=== PATIENT | female | born 1930 | race Caucasian/White ===

== ENCOUNTER 2018-03-09 15:47 | Inpatient (IN) | payer MEDICARE, OTHER ==
--- NOTE | 2017-03-14 22:30 | NUR ---
PT MOVED FROM RM #195 TO RM # [id number], PT CONFUSED, AND DISORIENTED HOWEVER, ATTEMPTS TO CLIMB THROUGH THE SIDE RAILS AND SIT ON THE EDGE. PT IS VERY CONFUSED, BED ALARM ON.
[~2018-03-09] VITALS: Ht 160 cm; Wt 57.4 kg
[~2018-03-09 15:47] MED LIST: ADVAIR 250-501 EACH; ATENOLOL-CHLOR1 EAC1 PEG; ATENOLOL50 MG PO; BALANCED B-501 EAC1 PO; BUDESONIDE EC3 MG PO; COENZYME Q10400 MG PO; COUMADIN4 MG PO; CYANOCOBAL1000 MCG/M IM; DEXAMETHASONE4 MG; ENTOCORT EC3 MG; FLOVENT DISKUS50 MCG; FUROSEMIDE40 MG PO; HYDROCHLOROTHIA25 MG PO; K DUR10 MEQ PO; LECITHIN518 MG PO; LEVOFLOXACIN250 MG; LEVSIN0.125 MG SL; MAGNESIUM400 MG PO; MINOCYCLINE HC100 MG PO; NEXIUM40 MG PO; NIFEDIAC CC90 MG PO; PRINIVIL10 MG PO; TRILIPIX135 MG PO; XYZAL5 MG; [UNRECOGNIZED DRUG - OTHER] PO
[2018-03-09] MEDS: PROPOFOL IV EMULSION 10MG/ML 100 ML IV PRN ×2 (15:58→20:48)
[2018-03-09] MEDS ORDERED: PROPOFOL IV EMULSION 10MG/ML 100 ML ONE (16:01)
[2018-03-09] MEDS ORDERED: SUCCINYLCHOLINE 200 MG/10 ML SYR IV ONE (16:06)
[2018-03-09] MEDS ORDERED: ETOMIDATE 2 MG/ML 10 ML INJ IV ONE ×2 (16:06→18:03)
[2018-03-09] MEDS ORDERED: PROPOFOL IV EMULSION 10 MG/ML 50 ML VIAL IV PRN ×2 (16:15→19:45)
--- NOTE | 2018-03-09 16:57 | NUR ---
Initial urine output recorded via I&O intervention.
[2018-03-09 17:13] LABS: BASOPHILS % 0.2 % (0.0-1.0); EOSINOPHILS % 0.4 % (0.0-6.0); HEMATOCRIT 29.6 % (34.2-44.1); HEMOGLOBIN 9.3 g/dL (12.0-16.0); LYMPHOCYTES # (AUTO) 0.8 (1.0-3.2); MEAN CORPUSCULAR HEMOGLOBIN 31.1 pg (28-32); MEAN CORPUSCULAR HGB CONC 31.4 g/dL (31-35); MONOCYTES # (AUTO) 0.8 (0.2-0.8); MONOCYTES % 7.5 % (4.4-11.3); NEUTROPHILS # (AUTO) 8.7 (2.1-6.9); NEUTROPHILS % 83.1 % (38.7-80.0); PLATELET COUNT 339 x10e3/uL (140-360); RED BLOOD COUNT 2.99 x10e6/uL (3.6-5.1)
[2018-03-09 17:23] LABS: INR 1.11; PROTHROMBIN TIME 15.3 seconds (11.9-14.5)
[2018-03-09 17:24] LABS: PARTIAL THROMBOPLASTIN TIME 35.6 seconds (23.8-35.5)
[2018-03-09 17:30] LABS: CLARITY,URINE CLEAR (CLEAR); COLOR,URINE YELLOW (YELLOW); LEUKOCYTE ESTERASE ,URINE NEGATIVE (NEGATIVE); NITRITE,URINE NEGATIVE (NEGATIVE)
[2018-03-09 17:31] LABS: BILIRUBIN,URINE NEGATIVE (NEGATIVE); KETONES,URINE NEGATIVE (NEGATIVE); PROTEIN,URINE DIPSTICK 2+ (NEGATIVE); URINE UROBILINOGEN 0.2 mg/dL (0.2 - 1)
[2018-03-09 17:32] LABS: ABG HCO3 23 mmol/L (23-28); ABG PCO2 43 mmHg (41-51); ABG PH 7.33 (7.31-7.41); ABG PO2 175 mmHg (80-105)
[2018-03-09 17:33] LABS: ALBUMIN 2.2 g/dL (3.5-5.0); ALBUMIN/GLOBULIN RATIO 0.6 (0.8-2.0); ANION GAP 13.6 mmol/L (8-16); CALCIUM 7.9 mg/dL (8.4-10.2); CREATININE, SERUM 0.94 mg/dL (0.57-1.11); POTASSIUM 3.6 mmol/L (3.5-5.1)
--- NOTE | 2018-03-09 17:35 | NUR ---
173 Radiology called about chest x-ray
[2018-03-09 17:39] LABS: CREATINE KINASE MB 2.4 ng/mL (0-5.0)
[2018-03-09 17:45] LABS: EPITHELIAL CELLS,URINE MANY /LPF; TRANSITIONAL EPI CELLS,URINE MANY
[2018-03-09 17:47] LABS: B-TYPE NATRIURETIC PEPTIDE2 2596.5 pg/mL (0-100)
[2018-03-09 17:49] LABS: AMORPHOUS SEDIMENT,URINE MODERATE (FEW)
[2018-03-09] MEDS ORDERED: SUCCINYLCHOLINE CHLORIDE 20 MG/ML 10ML VIAL ONE (18:03)
--- NOTE | 2018-03-09 18:24 | Diagnostic Imaging Report ---
EXAMINATION: CHEST SINGLE (PORTABLE) INDICATION: ^RESP FAILURE ^Y COMPARISON: None available. FINDINGS: AP view TUBES and LINES: Endotracheal tube in place with tip approximately 2.3 cm above sukhjinder. Nasogastric tube in place, extending beyond the inferior margin of the film. The side-port is at gastroesophageal junction. Recommend advancement. Dual-lead left chest wall cardiac device in place with distal tips overlying right atrium and right ventricle. LUNGS: Lungs are well inflated. Pulmonary vascular congestion and moderate interstitial edema. PLEURA: No pneumothorax. Small left and trace right pleural effusions. HEART AND MEDIASTINUM: The cardiomediastinal silhouette is enlarged. BONES AND SOFT TISSUES: No acute osseous lesion. Soft tissues are unremarkable. UPPER ABDOMEN: No free air under the diaphragm. IMPRESSION: Enlarged cardiomediastinal silhouette, pulmonary vascular congestion, and moderate interstitial edema. Underlying infiltrate cannot be excluded. Small left and trace right pleural effusions. Recommend advancement of enteric tube. Signed by: Dr. Rickie Carlos MD on 03/09/2018 6:20 PM
[2018-03-09] MEDS ORDERED: FUROSEMIDE INJ 10 MG/ML 4 ML VIAL IV ONE (19:00)
--- NOTE | 2018-03-09 19:50 | NUR ---
RECEIVED REPORT FROM [facility]EL[facility] DAY SHIFT NURSE.
--- OUTSIDE RECORDS SUMMARY | 2018-03-09 21:31 | XMS REPORT ---
Author Author [facility] Address Unknown Phone Unavailable Care Team Providers Care Mixing Place Supervisor Name Role Phone Shannan ESTRADA Unavailable Unavailable Problems This patient has no known problems. Allergies, Adverse Reactions, Alerts This patient has no known allergies or adverse reactions. Medications This patient has no known medications. Results Test Description Test Time Test Comments Text Results Atomic Results Result Comments CHEST SINGLE (PORTABLE) 2018-03-09 18:18:00 [place] [address] Patient Name: BOOM MOTA MR #: [id number] : 1930 Age/Sex: 87/F Req #: [id number] Adm Physician: Ordered by: NAYELI ESTRADA MD Report #: [id number] Location: ER Room/Bed: Procedure: [id number] DX/CHEST SINGLE (PORTABLE) Exam Date: 03/09/18 Exam Time: 1747 REPORT STATUS: Signed EXAMINATION: CHEST SINGLE (PORTABLE) INDIC ATION: RESP FAILURE Y COMPARISON: None available. FINDINGS: AP view TUBES and LINES: Endotracheal tube in place with tip approximately 2.3 cm above sukhjinder. Nasogastric tube in place, extending beyond the inferior margin of the film. The side-port is at gastroesophageal junction. Recommend advancement. Dual-lead left chest wall cardiac device in place with distal tips overlying right atrium and right ventricle. LUNGS: Lungs are well inflated. Pulmonary vascular congestion and moderate interstitial edema. PLEURA: No pneumothorax. Small left and trace right pleural effusions. HEART AND MEDIASTINUM: The cardiomediastinal silhouette is enlarged. BONES AND SOFT TISSUES: No acute osseous lesion. Soft tissues are unremarkable. UPPER ABDOMEN: No free air under the diaphragm. IMPRESSION: Enlarged cardiomediastinal silhouette, pulmonary vascular congestion, and moderate interstitial edema. Underlying infiltrate cannot be excluded. Small left and trace right pleural effusions. Recommend advancement of enteric tube. Signed by: Dr. Rickie Carlos MD on 03/09/2018 6:20 PM Dictated By: RICKIE CARLOS MD 19 Transcribed By: RANCHO on 03/09/181819 COPY TO: NAYELI ESTRADA MD
[2018-03-09 23:00] VITALS: BP_SYST 121; BP_SYST 122; BP_SYST 125; BP_DIAS 55
[2018-03-09 23:59] VITALS: BP 124/52
[2018-03-10] VITALS (56 sets, daily range): BP systolic 121–174; BP diastolic 49–76
[2018-03-10] MEDS: PROPOFOL IV EMULSION 10MG/ML 100 ML IV PRN ×5 (00:49→22:32)
[2018-03-10 04:44] LABS: BASOPHILS % 0.1 % (0.0-1.0); EOSINOPHILS # (AUTO) 0.1 (0.0-0.4); EOSINOPHILS % 0.7 % (0.0-6.0); HEMATOCRIT 24.1 % (34.2-44.1); HEMOGLOBIN 8.2 g/dL (12.0-16.0); LYMPHOCYTES # (AUTO) 0.7 (1.0-3.2); MEAN CORPUSCULAR HEMOGLOBIN 32.5 pg (28-32); MEAN CORPUSCULAR VOLUME 95.6 fL (81-99); MONOCYTES # (AUTO) 0.6 (0.2-0.8); MONOCYTES % 6.3 % (4.4-11.3); NEUTROPHILS # (AUTO) 8.5 (2.1-6.9); NEUTROPHILS % 85.1 % (38.7-80.0); PLATELET COUNT 269 x10e3/uL (140-360); RED BLOOD COUNT 2.52 x10e6/uL (3.6-5.1); RED CELL DISTRIBUTION WIDTH 16.7 % (11.7-14.4)
[2018-03-10 05:11] LABS: ANION GAP 11.3 mmol/L (8-16); BLOOD UREA NITROGEN 20 mg/dL (7-26); BUN/CREATININE RATIO 24 (6-25); CALCIUM 7.8 mg/dL (8.4-10.2); CARBON DIOXIDE 24 mmol/L (22-29); CHLORIDE 111 mmol/L (98-107); CREATININE, SERUM 0.84 mg/dL (0.57-1.11); EST GLOMERULAR FILTRATION RATE > 60 ML/MIN (60-); GLUCOSE 78 mg/dL (74-118); POTASSIUM 3.3 mmol/L (3.5-5.1); SODIUM 143 mmol/L (136-145)
[2018-03-10 05:12] LABS: CREATINE KINASE MB 3.1 ng/mL (0-5.0)
--- NOTE | 2018-03-10 06:53 | Diagnostic Imaging Report ---
EXAMINATION: CHEST SINGLE (PORTABLE) INDICATION: CHF. COMPARISON: 03/09/2018 FINDINGS: AP view TUBES and LINES: Left chest wall cardiac pacer, stable. Enteric tube sidehole projects over the gastric body, tip extends out of the field of view. Endotracheal tube tip projects slightly above the sukhjinder. LUNGS: Lungs are well inflated. Decreased edema. PLEURA: Small bilateral pleural effusions. HEART AND MEDIASTINUM: Stable. BONES AND SOFT TISSUES: Stable. UPPER ABDOMEN: No free air under the diaphragm. IMPRESSION: Decreased edema. Stable small pleural effusions. Endotracheal tube tip slightly above the sukhjinder. Consider retracting. Signed by: DR. Abel Velasquez MD on 03/10/2018 6:50 AM
--- NOTE | 2018-03-10 07:00 | NUR ---
Consult called to Dr Stanford. Spoke to Sandi
--- NOTE | 2018-03-10 07:04 | NUR ---
Consult called to Dr Aguero's office (Dr Forrest Covering). A message was left.
[2018-03-10] MEDS: FUROSEMIDE INJ 10 MG/ML 4 ML VIAL IV SCH ×2 (09:08→16:04)
[2018-03-10] MEDS ORDERED: POTASSIUM CHLORIDE 20MEQ/15ML UDC NG ONE (11:30)
[2018-03-10] MEDS: ATENOLOL 50 MG TAB PO SCH (11:56)
[2018-03-10 12:29] LABS: CREATINE KINASE MB 2.2 ng/mL (0-5.0)
--- NOTE | 2018-03-10 13:31 | Consultation ---
DATE OF CONSULTATION: March 10, 2018 PULMONARY/CRITICAL CARE CONSULTATION REASON FOR THE CONSULT: ICU management and respiratory failure. HPI: Ms. Roman is an 87-year-old female. She presented to the emergency room with worsening shortness of breath. According to the son, patient lives by herself, and 2 days ago, she was in her usual state of health. She usually has limited mobility and she uses wheelchair at home as well. She is a heavy smoker for almost 65 to 70 plus years. She lives by herself. She called the Life Alert, and she was transferred here. In the emergency room, she was in severe respiratory distress, was unable to give any history. She was intubated in the emergency room because of respiratory failure. Her room air sats by EMS reported was 75%. She was put on CPAP and then intubated in the emergency room. She is currently sedated. She is on propofol. REVIEW OF SYSTEMS: Unable to elicit any because patient is sedated. PAST MEDICAL HISTORY: Hypertension, pacemaker status, hyperlipidemia, possible COPD as patient has a longstanding history of smoking, had history of B12 deficiency in the past as well. FAMILY AND SOCIAL HISTORY: She has been a smoker for 65 to 70 plus years and heavy smoking. The son does not know exact number of cigarettes a day. She lives by herself. She has limited mobility. She uses wheelchair as well. PHYSICAL EXAMINATION VITAL SIGNS: Temperature 98.6, pulse of 60, blood pressure 150/58, respiratory rate of 18 to 20. She is on mechanical ventilator with FIO2 of 45% which was weaned this morning. HEENT: Head, atraumatic and normocephalic. NECK: Supple. She is intubated. CHEST: Clear to auscultation bilaterally. No wheezing. No crackles. HEART: S1, S2 audible. ABDOMEN: Soft, nontender, nondistended. EXTREMITIES: Bilateral pedal edema and chronic skin changes. NEUROLOGICAL: She is sedated and intubated. LABS: White count of 9.98, hemoglobin 8.2, platelets 269. Chemistry, sodium 143, potassium 3.3, chloride 111, BUN 20, creatinine 0.84. BNP was 2596.5 when she came in. Troponin 0.317 and went up to 0.451. Her influenza was negative. Chest x-ray, I have reviewed the images. It is showing evidence of bilateral increased hilar congestion and pulmonary edema which is a little better after intubation. ASSESSMENT/PLAN: Ms. Roman is an 87-year-old female, smoker, history of diastolic heart failure, last echo in 2014, does not have any recent echo, bilateral pedal edema, some skin changes in the lower extremities, heavy smoker, came in with worsening shortness of breath. Chest x-ray suggestive of increased hilar congestion and pulmonary edema. She has a pacemaker. IMPRESSION 1. Acute hypoxic respiratory failure. 2. Acute pulmonary edema. 3. Possibility of pneumonia, however unlikely. 4. High likelihood of having chronic obstructive pulmonary disease, not wheezing at this point. 5. Permanent pacemaker status. PLAN 1. Ventilator setting reviewed. We will continue the patient on current vent setting. ABG reviewed. The FiO2 is weaned to 45% which will be continued. 2. Patient is on propofol for sedation. Blood pressure has been stable. We will continue the patient on propofol. 3. Agree with Lasix 40 mg IV b.i.d. 4. I will add antibiotic for possibility of pneumonia. 5. Nebulizer treatment as ordered. 6. Lovenox subcutaneous for DVT prophylaxis. 7. Pepcid for GI prophylaxis. 8. Cardiology consult. 9. I had a detailed discussion with her son at bedside about the end-of-life care and patient's wishes. They are not sure but possibly has an advanced directive with DNR. However, at this point, the patient is full code here in the electronic medical records. However, I have asked them to bring the living will if they have it at home. Critical care time spent, 50 minutes. Job#: [id number] HIMA
[2018-03-10] MEDS: AZITHROMYCIN 250MG/NS 100 ML 100 ML IV SCH (13:51)
[2018-03-10] MEDS: AZTREONAM 1 GM/NS 50 ML 50 ML IV SCH (14:38)
[2018-03-10] MEDS: ALBUTEROL/IPRATROPIUM 3 ML NEB NEB SCH ×3 (15:00→23:30)
[2018-03-10] MEDS: ENOXAPARIN SOD INJ 40 MG/0.4 ML SYR SC SCH (16:04)
--- NOTE | 2018-03-10 17:27 | Consultation ---
DATE OF CONSULTATION: March 10, 2018 CARDIOLOGY CONSULTATION REASON FOR CONSULTATION: Heart failure. HISTORY OF PRESENT ILLNESS: This is an 87-year-old woman who presented to the emergency department with worsening shortness of breath. On EMS arrival, she was 75% on room air, was placed on noninvasive positive pressure ventilation and then subsequently intubated here at our facility. Medical history is taken at the step-daughter bedside as the patient is currently intubated and sedated. Evidently, she had been in her usual state of health and denied any chest pain or shortness of breath. Evidently, the patient ate some Hebrew food over the holiday weekend and became suddenly short of breath and press her Life Alert. Chest x-ray here showed pulmonary vascular congestion. She was started on intravenous diuretics. REVIEW OF SYSTEMS: Unable to be obtained. PAST MEDICAL HISTORY: Chronic diastolic heart failure, pacemaker implantation, tobacco use, hypertension, hyperlipidemia, COPD. PAST FAMILY HISTORY: No premature coronary artery disease or sudden cardiac . SOCIAL HISTORY: Tobacco use. PAST SURGICAL HISTORY: Permanent pacemaker implantation. ALLERGIES: PENICILLIN, SULFA, CLINDAMYCIN, CODEINE, DOXYCYCLINE, IODINE. MEDICATIONS: See medication reconciliation form. PHYSICAL EXAMINATION VITAL SIGNS: Temperature is 98.6, heart rate is 66, respirations are 16, blood pressure is 147/49, and oxygen saturation 100% on mechanical ventilation at 45% FiO2. GENERAL: Elderly woman, intubate and sedated. CARDIOVASCULAR: Regular rate and rhythm. LUNGS: Scatted wheezes with bilateral base diminished breath sounds. ABDOMEN: Soft, nondistended. EXTREMITIES: Positive for edema. SKIN: Right lower extremity wound. MEDICATION: Reviewed. LABORATORY DATA: Reviewed. Hemoglobin 8.2. Potassium 3.3, creatinine 0.84. Troponin is 0.317, 0.451, 0.37. BMP is 2596. A 12-lead electrocardiogram showed ventricular paced rhythm. IMPRESSION 1. Kphyr-ga-mbjcfpo diastolic heart failure. 2. Respiratory failure with hypoxemia. 3. Chronic obstructive pulmonary disease with exacerbation. 4. Presence of a permanent pacemaker. RECOMMENDATIONS: Continue intravenous diuretics. Replace electrolytes to keep potassium greater than 4, magnesium greater than 2. Continue to monitor closely on telemetry. We will have the pacemaker interrogated. We will repeat 2D echocardiogram. All other treatment per primary and pulmonary critical care team. Job#: [id number] PRASHANT
[2018-03-11] VITALS (51 sets, daily range): BP systolic 141–192; BP diastolic 49–89
[2018-03-11] MEDS: AZTREONAM 1 GM/NS 50 ML 50 ML IV SCH ×2 (00:30→12:40)
[2018-03-11] MEDS: ALBUTEROL/IPRATROPIUM 3 ML NEB NEB SCH ×6 (03:00→22:32)
[2018-03-11] MEDS: PROPOFOL IV EMULSION 10MG/ML 100 ML IV PRN ×2 (04:15→23:31)
[2018-03-11 04:49] LABS: BASOPHILS # (AUTO) 0.1 (0.0-0.1); BASOPHILS % 0.5 % (0.0-1.0); EOSINOPHILS # (AUTO) 0.1 (0.0-0.4); EOSINOPHILS % 0.6 % (0.0-6.0); HEMATOCRIT 27.6 % (34.2-44.1); HEMOGLOBIN 8.8 g/dL (12.0-16.0); LYMPHOCYTES # (AUTO) 1.1 (1.0-3.2); LYMPHOCYTES % 11.2 % (18.0-39.1); MEAN CORPUSCULAR HEMOGLOBIN 30.6 pg (28-32); MEAN CORPUSCULAR HGB CONC 31.9 g/dL (31-35); MEAN CORPUSCULAR VOLUME 95.8 fL (81-99); MONOCYTES % 9.8 % (4.4-11.3); NEUTROPHILS # (AUTO) 7.6 (2.1-6.9); NEUTROPHILS % 77.3 % (38.7-80.0); PLATELET COUNT 278 x10e3/uL (140-360); RED BLOOD COUNT 2.88 x10e6/uL (3.6-5.1); RED CELL DISTRIBUTION WIDTH 16.9 % (11.7-14.4)
[2018-03-11 05:22] LABS: ALBUMIN 1.9 g/dL (3.5-5.0); ALBUMIN/GLOBULIN RATIO 0.6 (0.8-2.0); ANION GAP 14.4 mmol/L (8-16); CREATININE, SERUM 1.14 mg/dL (0.57-1.11); POTASSIUM 3.4 mmol/L (3.5-5.1)
[2018-03-11 05:44] LABS: THYROID STIMULATING HORMONE 1.146 uIU/mL (0.350-4.940)
--- NOTE | 2018-03-11 06:36 | Diagnostic Imaging Report ---
EXAMINATION: CHEST SINGLE (PORTABLE) INDICATION: CHF. COMPARISON: 03/10/2017 FINDINGS: AP view TUBES and LINES: Left chest wall cardiac pacer, stable. Enteric tube sidehole and tip project over the gastric body. Endotracheal tube tip projects slightly above the sukhjinder. LUNGS: Lungs are well inflated. Stable edema. PLEURA: Small bilateral pleural effusions. HEART AND MEDIASTINUM: Stable. BONES AND SOFT TISSUES: Stable. UPPER ABDOMEN: No free air under the diaphragm. IMPRESSION: No significant interval change. Stable edema and pleural effusions. Endotracheal tube tip remains slightly above the sukhjinder. Consider retracting. Signed by: DR. Abel Velasquez MD on 03/11/2018 6:33 AM
[2018-03-11] MEDS: POTASSIUM CHLORIDE 20MEQ/15ML UDC NG SCH (08:00)
[2018-03-11] MEDS: FAMOTIDINE 20 MG/2 ML VIAL IV SCH (08:00)
[2018-03-11] MEDS: FUROSEMIDE INJ 10 MG/ML 4 ML VIAL IV SCH ×3 (08:00→23:31)
[2018-03-11] MEDS: ATENOLOL 50 MG TAB PO SCH ×2 (08:08→16:07)
[2018-03-11] MEDS ORDERED: POTASSIUM CHLORIDE 20MEQ/15ML UDC NG NR (09:45)
[2018-03-11] MEDS: LISINOPRIL 10 MG TAB PO SCH (10:01)
[2018-03-11] MEDS: AZITHROMYCIN 250MG/NS 100 ML 100 ML IV SCH (12:31)
--- NOTE | 2018-03-11 13:24 | Progress Note ---
DATE: March 11, 2018 CARDIOLOGY PROGRESS NOTE SUBJECTIVE: No major events overnight. Remains intubated and sedated. OBJECTIVE: VITAL SIGNS: Temperature afebrile, pulse 89, blood pressure 177/72, satting 100% on 40% FiO2. Intubated. GENERAL: Elderly white female, thin, chronically ill-appearing, intubated and sedated. CARDIOVASCULAR: Regular rate and rhythm. No murmurs, rubs or gallops. Palpable carotid pulses, palpable radial pulses, 2+ edema of bilateral lower extremities. LUNGS: Bilateral crackles and mechanical ventilation sounds. ABDOMEN: Soft, nondistended. No masses. NEURO AND PSYCH: Intubated and sedated. INPATIENT MEDICATIONS: Reviewed. LABORATORY DATA: Reviewed. Shows BNP of over 2000 and troponin of 0.45 now down-trending to 0.37. Blood cultures showed no growth in 24 hours. CHEST X-RAY: Shows bilateral pulmonary edema and pleural effusions. TELEMETRY DATA: Reviewed. Shows paced rhythm with occasional what looks like pacemaker tachycardia runs. ASSESSMENT: 1. Yqcez-dx-efwmjsp diastolic heart failure exacerbation. 2. Small pericardial effusion. 3. Pulmonary edema with large pleural effusion. 4. Elevated troponins. PLAN: Interrogate pacemaker. Continue IV diuretics, will increase to 80 mg IV twice a day of furosemide. Replete potassium as needed. Troponin elevation secondary to CHF exacerbation and not consistent with acute coronary syndrome. Will add p.r.n. labetalol IV for blood pressure control. Thank you for this consult. Will continue to follow. Job#: [id number] MELVI
[2018-03-11] MEDS: ENOXAPARIN SOD INJ 40 MG/0.4 ML SYR SC SCH (16:07)
--- NOTE | 2018-03-11 16:31 | NUR ---
Nutrition Intervention Note RD Recommendation(s) for Physician: -If pt remains intubated, rec continuous TF of Vital HP @50mL/hr, providing 1200kcal, 105g protein, and 1003mL H2O. -Rec free H2O flushes of 30mL q 4hr; additional flushes per MD discretion -Monitor daily labs, GI tolerance; replace low lytes -Rec cardiac diet when PO is feasible; diet texture per BUSINESS TECHNOLOGY ANALYST -Rec Ensure Compact BID if PO <50% on regular diet Plan of Care: RD following, monitoring for tolerance and adequacy Nutrition reason for involvement: RN Consult new TF RD Assessment 03/11 Chart reviewed. 87yo F, who is admitted for worsening SOB. Pt remains intubated and on vent. Propofol was stopped. No pressor meds. K was repleted. Currently on IV Lasix. RD consulted for TF recommendation. Visited pt in the room. Vital HP was started at 20mL/hr. No family present on bedside to provide hx. Communicated TF rec with MARK Garvin. Will continue to monitor and follow. Principal Problems/Diagnoses: 1. Usijv-lt-dvrieso diastolic heart failure exacerbation. 2. Small pericardial effusion. 3. Pulmonary edema with large pleural effusion. 4. Elevated troponins. PMH: Chronic diastolic heart failure, pacemaker implantation, tobacco use, hypertension, hyperlipidemia, COPD GI: abdomen non-tender, flatus present 03/11 Skin: no pressure ulcer noted Labs: (03/11) K 3.4L, Creatinine 1.14 H, Glucose 67 L, Ca 8.0 L, vitamin B12 1060 H Meds: abx, lasix, pepcid, KCl Ht: 63in Wt: 130.13lb BMI: 23.1kg/m2 IBW: 115lb Malnutrition Evaluation (03/11) The patient does not meet criteria for a specified degree of malnutrition at this time. Will re-evaluate at follow-up as appropriate. Nutrition Prescription (Diet Order): Tube Feed w Vital HP @40mL/hr Estimated Nutritional Needs: Calories: 1180-1475kcal(20-25kcal/kg/d) Weight used : Actual BW Protein : 77-118g (1.3-2g/kg/d) Weight used: Actual BW Diet Adequacy: Not meeting calorie needs, Not meeting protein needs Diet Education Needs Assessment: Diet education indicated, but patient not appropriate for education at this time. Nutrition Care Level: mod Nutrition Diagnosis: Inadequate oral intake related to current medical status (ventilated and intubated) as evidenced by pt requiring TF as main source of nutrients. Goal: Patient will meet 75-100% of estimated needs by follow up Progress: Progressing Interventions: Composition, Rate, Route Monitoring/Evaluation: Total energy intake, Total protein intake, Formula, Weight change Signed: Wanda Cordova MS, RD, CARMEN
--- NOTE | 2018-03-11 17:17 | NUR ---
WOUND CARE CONSULTATION - Initial Eval and Recommendation Patient is a 87 year-old female admitted for SOB and was intubated and was found to have pulmonary edema. She has a history of cataracts, HTN, Ricardo Knee Replacement 2 years ago, B12 Deficiency, Hyperlipidemia. Head to toe assessment performed. Noted patient already on Alternating ANICETO Air mattress, katz to bedside drainage, NGT with wrist restraints in place. Wrist restraints removed and reapplied, no injuries noted. Edema noted to bilateral legs +2 pitting at dorsum of feet with erythema more pronounced to right lower extremity, hot to touch. Son at bedside states that legs have improved a lot since admission. Diminished pedal pulses noted bilaterally. Capillary refill less than 2 seconds. Patient presented with the following wounds upon evaluation: 1. Right Lower Leg Anterior- Morrison - 4.5x1.5x <0.1- Scabbed- No Drainage - 2. Right Lower Leg Posterior- Calf - 2x1x0.2 - Dry - 100% granulation 3. Left Lower Leg - 2x2x0.1- scabbed, no drainage. 4. Sacrum - Stage I - Pressure Ulcer- 1.5x1.5x0 5. Right Foot 1st Met Head - DTI - 1x1x0 - stable LABS: WBC: 9.86 RBC: 2.88 HGB: 8.8 HCT: 27.6 GLU: 78 ALB: 1.9 RECOMMENDATION: 1. Right Lower Leg Anterior- Morrison - 4.5x1.5x <0.1- Scabbed- No Drainage -Bactroban Ointment BID & Leave Open To Air ( LOTA) 2. Right Lower Leg Posterior- Calf - 2x1x0.2 - Dry - 100% granulation - Bactroban Ointment BID and LOTA 3. Left Medial Lower Leg - 2x2x0.1 - Scabbed- No Drainage -Bactroban Ointment BID and LOTA 4. Sacrum - Stage I - 1.5x1.5x0 - Venelex and Allevyn Sacrum Foam Dressing Daily 5. Right Foot 1st Met Head - 1x1x0 - DTI - Venelex and Allevyn Sacrum Foam Dressing Daily 6. Bilateral Heel Protectors / Prevalon Boots while in bed Daily. Addendum: 03/11/18 at 1732 by Heriberto Ross RN Amended: Links added.
[2018-03-12] VITALS (51 sets, daily range): BP systolic 119–186; BP diastolic 48–90
[2018-03-12] MEDS: AZTREONAM 1 GM/NS 50 ML 50 ML IV SCH ×2 (00:32→12:39)
[2018-03-12] MEDS: ALBUTEROL/IPRATROPIUM 3 ML NEB NEB SCH ×6 (02:32→23:08)
[2018-03-12 04:47] LABS: BASOPHILS % 0.3 % (0.0-1.0); EOSINOPHILS # (AUTO) 0.1 (0.0-0.4); EOSINOPHILS % 0.8 % (0.0-6.0); HEMATOCRIT 27.1 % (34.2-44.1); HEMOGLOBIN 8.8 g/dL (12.0-16.0); LYMPHOCYTES # (AUTO) 0.9 (1.0-3.2); LYMPHOCYTES % 9.2 % (18.0-39.1); MEAN CORPUSCULAR HEMOGLOBIN 30.8 pg (28-32); MEAN CORPUSCULAR HGB CONC 32.5 g/dL (31-35); MEAN CORPUSCULAR VOLUME 94.8 fL (81-99); MONOCYTES % 11.1 % (4.4-11.3); NEUTROPHILS # (AUTO) 7.3 (2.1-6.9); NEUTROPHILS % 78.1 % (38.7-80.0); PLATELET COUNT 274 x10e3/uL (140-360); RED BLOOD COUNT 2.86 x10e6/uL (3.6-5.1); RED CELL DISTRIBUTION WIDTH 16.5 % (11.7-14.4)
[2018-03-12 05:10] LABS: ANION GAP 12.4 mmol/L (8-16); CALCIUM 7.8 mg/dL (8.4-10.2); CREATININE, SERUM 1.12 mg/dL (0.57-1.11); POTASSIUM 3.4 mmol/L (3.5-5.1)
[2018-03-12 05:37] LABS: MAGNESIUM 1.6 MG/DL (1.3-2.1); PHOSPHORUS 4.1 MG/DL (2.3-4.7)
--- NOTE | 2018-03-12 07:55 | Diagnostic Imaging Report ---
EXAMINATION: CHEST SINGLE (PORTABLE) INDICATION: Respiratory failure, pulmonary edema, COPD COMPARISON: Chest radiograph 03/11/2018. FINDINGS: TUBES and LINES: Left chest wall cardiac pacer, stable. Enteric tube terminates in the gastric body. Endotracheal tube tip projects 2.5 cm above the sukhjinder. LUNGS: Lungs are well inflated. Increasing interstitial and perihilar opacities. Patchy opacities are increased at the lung bases. PLEURA: Small bilateral pleural effusions, increased from the prior study. HEART AND MEDIASTINUM: Stable cardiomediastinal silhouette. BONES AND SOFT TISSUES: No acute osseous abnormality. UPPER ABDOMEN: No free air under the diaphragm. IMPRESSION: Increasing moderate interstitial and alveolar pulmonary edema. Increasing patchy opacities at lung bases, likely a combination of small bilateral pleural effusions and atelectasis. Lines and tubes as above. No evidence of pneumothorax. Signed by: Dr. Erich Rodríguez MD on 03/12/2018 7:52 AM
[2018-03-12] MEDS: FUROSEMIDE INJ 10 MG/ML 4 ML VIAL IV SCH ×3 (08:10→22:33)
[2018-03-12] MEDS: MUPIROCIN 2% OINT 22 GM TUBE TOP SCH ×2 (08:10→16:38)
[2018-03-12] MEDS: FAMOTIDINE 20 MG/2 ML VIAL IV SCH (08:10)
[2018-03-12] MEDS: LISINOPRIL 10 MG TAB PO SCH (08:10)
[2018-03-12] MEDS: ATENOLOL 50 MG TAB PO SCH ×2 (08:10→16:40)
[2018-03-12] MEDS: BALSAM PERU/CASTOR OIL 60 GM OINT...G. TP SCH (08:10)
[2018-03-12] MEDS: POTASSIUM CHLORIDE 20MEQ/15ML UDC NG SCH (08:10)
--- NOTE | 2018-03-12 08:11 | NUR ---
tube feed and sedation for ventilator weaning
[2018-03-12] MEDS ORDERED: POTASSIUM CHLORIDE 20MEQ/15ML UDC NG ONE ×3 (10:15→12:00)
[2018-03-12] MEDS ORDERED: MAGNESIUM SULF 1GRAM/DEXTROSE 100 ML IV ONE (10:15)
[2018-03-12] MEDS: AZITHROMYCIN 250MG/NS 100 ML 100 ML IV SCH (13:04)
[2018-03-12 13:55] LABS: ABG HCO3 26 mmol/L (23-28); ABG PCO2 39 mmHg (41-51); ABG PH 7.44 (7.31-7.41); ABG PO2 92 mmHg (80-105)
[2018-03-12] MEDS: ENOXAPARIN SOD INJ 40 MG/0.4 ML SYR SC SCH (16:40)
--- NOTE | 2018-03-12 21:50 | Progress Note ---
DATE: March 12, 2018 CARDIOLOGY PROGRESS NOTE SUBJECTIVE: No major events overnight. Intubated and sedated. OBJECTIVE: VITAL SIGNS: Temperature afebrile, pulse 81, respiratory rate 14, blood pressure 140/62, satting 99% on mechanical ventilation. GENERAL: Elderly female in no acute distress, intubated and sedated. CARDIOVASCULAR: Regular rate and rhythm. No murmurs, rubs, or gallops. LUNGS: Coarse bilaterally. Aeration improved compared to yesterday. ABDOMEN: Soft, nontender, nondistended. NEURO AND PSYCH: Intubated and sedated. INPATIENT MEDICATIONS: Reviewed. LABORATORY DATA: Reviewed. IMAGING DATA: Reviewed. Chest x-ray shows worsening pulmonary edema. TELEMETRY: Shows normal sinus rhythm. ASSESSMENT: 1. Ursdw-rk-uulbpuo diastolic heart failure exacerbation. 2. Small pericardial effusion. 3. Pulmonary edema with pleural effusions. 4. Elevated troponins. PLAN: Pacemaker interrogation completed, shows normal function, no significant arrhythmias. Continue IV diuretics. Diuresing well. Troponin elevation is secondary to CHF exacerbation, not consistent with acute coronary syndrome. Blood pressure is now better controlled. Thank you for this consult. Will continue to follow. Job#: [id number]
[2018-03-13] VITALS (24 sets, daily range): BP systolic 138–187; BP diastolic 47–98
[2018-03-13] MEDS: AZTREONAM 1 GM/NS 50 ML 50 ML IV SCH ×2 (00:45→13:30)
[2018-03-13] MEDS: ALBUTEROL/IPRATROPIUM 3 ML NEB NEB SCH ×6 (03:05→22:55)
[2018-03-13 05:05] LABS: BASOPHILS % 0.4 % (0.0-1.0); EOSINOPHILS # (AUTO) 0.1 (0.0-0.4); HEMATOCRIT 27.2 % (34.2-44.1); HEMOGLOBIN 8.7 g/dL (12.0-16.0); LYMPHOCYTES # (AUTO) 0.9 (1.0-3.2); LYMPHOCYTES % 8.9 % (18.0-39.1); MEAN CORPUSCULAR HEMOGLOBIN 30.7 pg (28-32); MEAN CORPUSCULAR VOLUME 96.1 fL (81-99); MONOCYTES # (AUTO) 1.3 (0.2-0.8); MONOCYTES % 12.7 % (4.4-11.3); NEUTROPHILS # (AUTO) 7.9 (2.1-6.9); NEUTROPHILS % 76.4 % (38.7-80.0); PLATELET COUNT 293 x10e3/uL (140-360); RED BLOOD COUNT 2.83 x10e6/uL (3.6-5.1)
[2018-03-13 05:34] LABS: ANION GAP 11.6 mmol/L (8-16); CALCIUM 8.1 mg/dL (8.4-10.2); CREATININE, SERUM 1.06 mg/dL (0.57-1.11); POTASSIUM 3.6 mmol/L (3.5-5.1)
--- NOTE | 2018-03-13 06:50 | Diagnostic Imaging Report ---
EXAMINATION: CHEST SINGLE (PORTABLE) INDICATION: Pulmonary edema. COMPARISON: Chest radiograph 03/12/2018. FINDINGS: TUBES and LINES: Left chest wall cardiac pacer, stable. Enteric tube terminates in the gastric body. Endotracheal tube tip projects 2.6 cm above the sukhjinder. LUNGS: Lungs are well inflated. Increasing interstitial and perihilar opacities. Patchy opacities are stable at the lung bases. PLEURA: Small bilateral pleural effusions, stable from the prior study. HEART AND MEDIASTINUM: Stable cardiomediastinal silhouette. BONES AND SOFT TISSUES: No acute osseous abnormality. UPPER ABDOMEN: No free air under the diaphragm. IMPRESSION: Stable edema. Stable patchy opacities at lung bases, likely a combination of small bilateral pleural effusions and atelectasis. Lines and tubes as above. Signed by: DR. Abel Velasquez MD on 03/13/2018 6:47 AM
[2018-03-13] MEDS: MUPIROCIN 2% OINT 22 GM TUBE TOP SCH ×2 (09:34→17:13)
[2018-03-13] MEDS: BALSAM PERU/CASTOR OIL 60 GM OINT...G. TP SCH (09:34)
[2018-03-13] MEDS: ATENOLOL 50 MG TAB PO SCH ×2 (09:40→17:00)
[2018-03-13] MEDS: POTASSIUM CHLORIDE 20MEQ/15ML UDC NG SCH (09:40)
[2018-03-13] MEDS: LISINOPRIL 10 MG TAB PO SCH (09:40)
[2018-03-13] MEDS: FAMOTIDINE 20 MG/2 ML VIAL IV SCH (09:40)
[2018-03-13 10:00] LABS: ABG HCO3 29 mmol/L (23-28); ABG PCO2 42 mmHg (41-51); ABG PH 7.44 (7.31-7.41); ABG PO2 124 mmHg (80-105)
[2018-03-13] MEDS: FUROSEMIDE INJ 10 MG/ML 4 ML VIAL IV SCH ×2 (10:23→23:53)
[2018-03-13] MEDS ORDERED: SODIUM CHLORIDE 0.9% 250ML 250 ML ONE (13:49)
[2018-03-13] MEDS: AZITHROMYCIN 250MG/NS 100 ML 100 ML IV SCH (14:07)
--- NOTE | 2018-03-13 15:49 | Progress Note ---
DATE: March 13, 2018 CARDIOLOGY PROGRESS NOTE SUBJECTIVE: No major events overnight. Remains intubated. OBJECTIVE VITAL SIGNS: Temperature afebrile, pulse 88, respiratory rate 15, blood pressure 175/55, satting 98% on mechanical ventilation. GENERAL: Elderly white female, no acute distress. Intubated, not sedated. CARDIOVASCULAR: Regular rate and rhythm. No murmurs, rubs or gallops. Palpable carotid pulses. Palpable radial pulses. LUNGS: Clear to auscultation anteriorly with some patchy rhonchi and rales. ABDOMEN: Soft, nontender, nondistended. NEURO AND PSYCH: The patient is intubated and not responding. Opens her eyes to stimulation. INPATIENT MEDICATIONS: Reviewed. TELEMETRY DATA: Reviewed. Shows ventricularly paced rhythm. LABORATORY DATA: Reviewed. IMAGING DATA: Reviewed. Chest x-ray today shows stable pulmonary edema and small pleural effusions. ASSESSMENTS AND PLANS 1. Qwdob-vb-dzvyjbi diastolic heart failure. 2. Pulmonary edema. 3. Small pericardial effusion. 4. Elevated troponins. 5. Status post pacemaker placement. PLAN: Normal pacemaker function. Continue IV diuretics. Is diuresing well and renal function is holding. Extubation per primary team. Troponin elevation secondary to type 2 IL due to acute CHF exacerbation and not ACS. Will add p.r.n. IV hydralazine for better blood pressure control. Thank you for this consult. Will continue to follow. Job#: [id number] ALEJANDRINA
[2018-03-13] MEDS: HYDRALAZINE HCL 20 MG/ML VIAL IV PRN ×2 (16:36→22:00)
[2018-03-13] MEDS: ENOXAPARIN SOD INJ 40 MG/0.4 ML SYR SC SCH (17:23)
[2018-03-14] VITALS (22 sets, daily range): BP systolic 139–182; BP diastolic 54–111
[2018-03-14] MEDS: AZTREONAM 1 GM/NS 50 ML 50 ML IV SCH ×3 (01:30→23:54)
[2018-03-14] MEDS: HYDRALAZINE HCL 20 MG/ML VIAL IV PRN ×2 (01:50→06:40)
[2018-03-14] MEDS: ALBUTEROL/IPRATROPIUM 3 ML NEB NEB SCH ×6 (03:12→23:00)
[2018-03-14 05:35] LABS: ANION GAP 15.3 mmol/L (8-16); CALCIUM 8.8 mg/dL (8.4-10.2); CREATININE, SERUM 0.98 mg/dL (0.57-1.11); POTASSIUM 3.3 mmol/L (3.5-5.1)
[2018-03-14] MEDS: MUPIROCIN 2% OINT 22 GM TUBE TOP SCH ×2 (07:54→16:46)
[2018-03-14] MEDS: BALSAM PERU/CASTOR OIL 60 GM OINT...G. TP SCH (07:54)
[2018-03-14] MEDS: FAMOTIDINE 20 MG/2 ML VIAL IV SCH (09:14)
[2018-03-14] MEDS: LISINOPRIL 10 MG TAB PO SCH (09:15)
[2018-03-14] MEDS: POTASSIUM CHLORIDE 20MEQ/15ML UDC NG SCH (09:15)
[2018-03-14] MEDS: ATENOLOL 50 MG TAB PO SCH ×2 (09:15→16:46)
[2018-03-14] MEDS: FUROSEMIDE INJ 10 MG/ML 4 ML VIAL IV SCH ×2 (11:00→22:55)
[2018-03-14] MEDS: ACETAMINOPHEN 325 MG TAB PO PRN (12:44)
--- NOTE | 2018-03-14 14:25 | NUR ---
Order received for bedside swallow evaluation. Chart reviewed. Pt will 24 hours s/p extubation and no P.O. diet orders. CXR showing lung base opacities. Will evaluate patient at bedside today.
--- NOTE | 2018-03-14 16:13 | NUR ---
attempted to place NGT for nutrition and medication admin d/t pt failed swallow eval. pt absolutely refused to have to placed. family at bedside trying to talk mother in to getting tube placed. will continue to monitor
[2018-03-14] MEDS: ENOXAPARIN SOD INJ 40 MG/0.4 ML SYR SC SCH (16:46)
--- NOTE | 2018-03-14 18:45 | Progress Note ---
DATE: March 14, 2018 CARDIOLOGY PROGRESS NOTE SUBJECTIVE: Patient denies chest pain or shortness of breath. OBJECTIVE VITAL SIGNS: Temperature 98.5 degrees, pulse 70, respiratory rate 17, blood pressure 153/66, oxygen saturation 99% on 2 liters nasal cannula. GENERAL: Elderly woman, frail, no acute distress. LUNGS: Clear to auscultation bilaterally. No wheezes or crackles. CARDIOVASCULAR: Normal rate. Regular rhythm. No murmur. Normal S1, S2. ABDOMEN: Soft, nontender. EXTREMITIES: 1+ pitting edema. CARDIAC MEDICATIONS 1. Enoxaparin 40 mg subcu daily. 2. Furosemide 80 mg IV q. 12 hours. 3. Lisinopril 10 mg p.o. daily. 4. Atenolol 50 mg p.o. daily. LABS: Sodium 149, potassium 3.3, chloride 109, CO2 of 28, BUN 42, creatinine 0.98. TELEMETRY: V-paced. IMPRESSION 1. Sazaw-pj-bimawze diastolic heart failure. 2. Pulmonary edema. 3. Small pericardial effusion. 4. Elevated troponin. 5. Status post pacemaker placement. RECOMMENDATIONS: Continue current cardiac medications including intravenous diuretics. Patient is net negative with stable creatinine. Troponin elevation secondary to type 2 myocardial infarction in the setting of djpdo-kc-jvglmeq diastolic heart failure and is not consistent with acute coronary syndrome. Patient's blood pressure is elevated. Increase lisinopril. Thank you for this consult. We will continue to follow. Job#: [id number] SHELBIE
--- NOTE | 2018-03-14 19:00 | NUR ---
RECEIVED REPORT FROM SELENA FLORES AT PT'S BEDSIDE, PT CONFUSED, ALERT TO NAME ONLY, FIDGETY IN BED, DIFFICULT FOR PT TO FOLLOW DIRECTIONS SKIN VERY FRAIL AND NUMEROUS BRUISES ALL OVER BODY.
--- NOTE | 2018-03-14 23:00 | NUR ---
PT CONTINUES TO TRY AND GET UP OOB, WITH BED ALARM GOING OFF. PT THROWS HER LEG ACROSS THE RAIL. PT TAKES OFF PULSE OX, NURSE ENCOURAGE THE PT TO LEAVE IT ON TO MONITOR HER OXYGENATION. FREQUENT REMINDERS TO STAY IN BED, BED ALARM ON.
[2018-03-15] VITALS (13 sets, daily range): BP systolic 120–198; BP diastolic 58–92
[2018-03-15] MEDS: HYDRALAZINE HCL 20 MG/ML VIAL IV PRN (00:15)
--- NOTE | 2018-03-15 00:15 | NUR ---
HYDRALAZNE GIVEN PRN FOR B/P OF /
[2018-03-15] MEDS: ALBUTEROL/IPRATROPIUM 3 ML NEB NEB SCH ×6 (03:00→23:00)
--- NOTE | 2018-03-15 03:14 | NUR ---
PT ATTEMPTED TO GET OOB AGAIN, BED ALARM WENT OFF, INSTRUCTED PT TO STAY IN BED, CONTINUES TO SAY NO.
--- NOTE | 2018-03-15 06:57 | NUR ---
PAGED DR MARTINEZ, TO INFORM HER PT IS NPO, REFUSED NGT, NOT RECEIVING ANY HYDRATION, PT'S SBP ELEVATED FROM 170'S TO 190'S PT RECEIVES BLOOD PRESSURE MEDICATION MOSTLY DURING DAY SHIFT AT 9AM, HYDRALAZINE NOT HELPING, GAVE ORDER TO HOLD LASIX, AND SHE WILL SEE HER LATER TODAY. INFORMED CHARGE NURSE LACY FLORES
--- NOTE | 2018-03-15 07:08 | NUR ---
REPORTED OFF TO VALENTINA FLORES
[2018-03-15] MEDS: FAMOTIDINE 20 MG/2 ML VIAL IV SCH (08:57)
[2018-03-15] MEDS: SODIUM CHLORIDE FLUSH 10 ML SYR INJ PRN ×2 (08:59→15:34)
[2018-03-15] MEDS: POTASSIUM CHLORIDE 20MEQ/15ML UDC NG SCH (09:00)
[2018-03-15] MEDS: LISINOPRIL 20 MG TAB PO SCH (09:00)
[2018-03-15] MEDS: ATENOLOL 50 MG TAB PO SCH (09:00)
--- NOTE | 2018-03-15 09:00 | NUR ---
Allevyn dressing to buttocks changed applied Venelex ointment buttocks and sacral area repositioned patient
--- NOTE | 2018-03-15 09:35 | NUR ---
Called Dr. Cuevas left a message in her voice mail made aware of patient's blood pressure, 178/75 made aware patient had already be given hydralazine 0.5mg IV by night club manager nurse and we needed to wait another hour before we give PRN dose of hydralazine, waiting for a call back.
[2018-03-15 09:49] LABS: ANION GAP 16.2 mmol/L (8-16); CALCIUM 8.9 mg/dL (8.4-10.2); CREATININE, SERUM 1.19 mg/dL (0.57-1.11); POTASSIUM 3.2 mmol/L (3.5-5.1)
--- NOTE | 2018-03-15 09:59 | NUR ---
Dr. Cuevas, called back made her aware I did not given patient her PO blood pressure medications because she is NPO, and had failed her bedside swallow evaluation. I also had retaken blood pressure at 09:50 162/70 hr 70 no new orders given. Per Dr. Cuevas she will add another PRN BP medication when she rounds.
[2018-03-15] MEDS: MUPIROCIN 2% OINT 22 GM TUBE TOP SCH ×2 (10:34→17:45)
[2018-03-15] MEDS: BALSAM PERU/CASTOR OIL 60 GM OINT...G. TP SCH (10:34)
--- NOTE | 2018-03-15 13:06 | Progress Note ---
DATE: March 15, 2018 CARDIOLOGY PROGRESS NOTE SUBJECTIVE: Patient is awake, but confused. She was attempting to get out of bed overnight. OBJECTIVE VITAL SIGNS: Temperature 97.9 degrees, pulse 70, respiratory rate 18, blood pressure 162/70, oxygen saturation 98% on 2 liters nasal cannula. GENERAL: Elderly woman, frail, no acute distress. LUNGS: Clear to auscultation bilaterally. No wheezes or crackles. CARDIOVASCULAR: Normal rate. Regular rhythm. No murmur. Normal S1, S2. ABDOMEN: Soft, nontender. EXTREMITIES: 1+ pitting edema. CARDIAC MEDICATIONS 1. Hydralazine 5 mg IV q.4 hours p.r.n. 2. Enoxaparin 40 mg subcu daily. 3. Lisinopril 20 mg p.o. daily. 4. Atenolol 50 mg p.o. daily. LABS: Sodium 152, potassium 3.2, chloride 112, CO2 of 27, BUN 53, creatinine 1.19. TELEMETRY: V-paced. IMPRESSION 1. Xapqh-rx-ycknocf diastolic heart failure. 2. Pulmonary edema. 3. Small pericardial effusion. 4. Elevated troponin. 5. Status post pacemaker placement. RECOMMENDATIONS: Patient will benefit from further diuresis; however, as patient is currently n.p.o. due to failing her bedside swallow evaluation, we will hold Lasix at this time. Start IV antihypertensive therapy as patient is unable to take p.o. We will resume patient's lisinopril once she has access. Patient's troponin elevation is likely secondary to type 2 myocardial infarction in the setting of xocjl-xd-vhzqyzw diastolic heart failure and is not consistent with acute coronary syndrome. Continue to monitor patient on telemetry. Further evaluation of patient's altered mental status per primary. Thank you for this consult. We will continue to follow. Job#: [id number] HIMA
[2018-03-15] MEDS: AZTREONAM 1 GM/NS 50 ML 50 ML IV SCH ×2 (13:26→23:59)
[2018-03-15] MEDS ORDERED: POTASSIUM CHLORIDE 20MEQ/100ML 100 ML IV ONE ×2 (14:30→16:30)
--- NOTE | 2018-03-15 17:00 | NUR ---
bilateral lower extremities dressing changes, applied Allevyn dressing wrapped with Kerlix wrap.
[2018-03-15] MEDS: ENOXAPARIN SOD INJ 40 MG/0.4 ML SYR SC SCH (17:45)
--- NOTE | 2018-03-15 22:49 | NUR ---
patient keeps trying to get off bed, confused and hallucinated. turn to left side at this time, bed alarm is on zone 2. will continue to monitor.
[2018-03-15] MEDS: LABETALOL HCL 5 MG/ML 20ML VIAL IV PRN (23:02)
[2018-03-16] VITALS (10 sets, daily range): BP systolic 143–174; BP diastolic 61–86
--- NOTE | 2018-03-16 01:09 | NUR ---
multiple times patient tried to get off the bed and taking off nasal canula and telemetry cords, and getting agitated when nurse trying to put them back on. continue monitoring closely.bed alarm is on zone 2.
[2018-03-16] MEDS: HYDRALAZINE HCL 20 MG/ML VIAL IV PRN ×2 (03:00→11:45)
[2018-03-16] MEDS: ALBUTEROL/IPRATROPIUM 3 ML NEB NEB SCH ×6 (03:00→23:20)
[2018-03-16] MEDS: LABETALOL HCL 5 MG/ML 20ML VIAL IV PRN (06:04)
[2018-03-16] MEDS: SODIUM CHLORIDE FLUSH 10 ML SYR INJ PRN ×2 (06:09→11:44)
--- NOTE | 2018-03-16 07:00 | NUR ---
reports given to upcoming shift Eliane FLORES.
[2018-03-16] MEDS: FAMOTIDINE 20 MG/2 ML VIAL IV SCH (08:32)
[2018-03-16] MEDS: LISINOPRIL 20 MG TAB PO SCH (08:32)
[2018-03-16] MEDS: POTASSIUM CHLORIDE 20MEQ/15ML UDC NG SCH (08:32)
[2018-03-16] MEDS: MUPIROCIN 2% OINT 22 GM TUBE TOP SCH ×2 (08:32→16:30)
[2018-03-16] MEDS: BALSAM PERU/CASTOR OIL 60 GM OINT...G. TP SCH (08:32)
--- NOTE | 2018-03-16 09:50 | NUR ---
patient with multiple attempts to get out of bed unassisted, bed alarm on, will continue to monitor
[2018-03-16] MEDS ORDERED: SOD CHL 0.45%/POT CHL 20MEQ 1,000 ML IV ONE (10:00)
--- NOTE | 2018-03-16 10:14 | NUR ---
informed dr sumanth Coffman and NA level, orders received
[2018-03-16] MEDS: POTASSIUM CHLORIDE 20 MEQ in DEXTROSE 5% 1,000 ML IV SCH ×2 (11:36→18:48)
--- NOTE | 2018-03-16 11:54 | NUR ---
CONSULT CALLED TO DR JARVIS, SPOKE TO HUMERA
--- NOTE | 2018-03-16 12:48 | Diagnostic Imaging Report ---
PROCEDURE:X-RAY MODIFIED BARIUM SWALLOW COMPARISON:None. INDICATIONS:Respiratory failure possible aspiration DISCUSSION:Fluoroscopic examination was performed in conjunction with speech pathology, during swallowing of a variety of thin and thick liquid consistencies. A total of 7 series were obtained and saved to the medical record. Fluoroscopy time: 1.0 minutes Total dose: 4.51 mGy Air Kerma: 1.45 Gy.cm2 CONCLUSION:There is premature spillage and penetration. Rohan aspiration and silent aspiration noted. Please see the report from speech pathology for complete details. Azeem Hernandez D.O. Dictated by: Azeem Hernandez D.O. on 03/16/2018 at 12:58 Electronically approved by: Azeem Hernandez D.O. on 03/16/2018 at 12:58
[2018-03-16] MEDS: AZTREONAM 1 GM/NS 50 ML 50 ML IV SCH (13:08)
[2018-03-16] MEDS: ENOXAPARIN SOD INJ 40 MG/0.4 ML SYR SC SCH (16:30)
--- NOTE | 2018-03-16 17:40 | NUR ---
Nutrition Intervention Note RD Recommendation(s) for Physician: - When TF is feasible, rec continuous TF with Jevity 1.2@ 50mL/hr to provide 1440kcal, 67g protein, and 970mL fluids. meet 100% of est calorie and protein needs - Rec free H2O flushes of 30mL q 4hr; additional flushes per MD discretion - Monitor daily labs, GI tolerance; replace low lytes - Obtain daily weight Plan of Care: RD following, monitoring for tolerance and adequacy, TF rec Nutrition reason for involvement: Follow up RD Assessment 03/16 Chart reviewed. Pt is s/p extubation and on room air. Per RN, pt has failed swallow study. Possible PEG placement. Pt remains confused and sitter presents on bedside. TF was held as pt pulled out her NGT. RD will communicate TF recommendation to RN when feeding is feasible. Will continue to monitor and follow. 03/11 Chart reviewed. 87yo F, who is admitted for worsening SOB. Pt remains intubated and on vent. Propofol was stopped. No pressor meds. K was repleted. Currently on IV Lasix. RD consulted for TF recommendation. Visited pt in the room. Vital HP was started at 20mL/hr. No family present on bedside to provide hx. Communicated TF rec with MARK Garvin. Will continue to monitor and follow. Principal Problems/Diagnoses: 1. Rssqh-uj-pjwveyq diastolic heart failure exacerbation. 2. Small pericardial effusion. 3. Pulmonary edema with large pleural effusion. 4. Elevated troponins. PMH: Chronic diastolic heart failure, pacemaker implantation, tobacco use, hypertension, hyperlipidemia, COPD GI: abdomen soft, non-tender, round, flatus present, LBM 1/4 per RN Skin: no pressure ulcer noted Labs: No lab for 03/16 (03/11) K 3.4L, Creatinine 1.14 H, Glucose 67 L, Ca 8.0 L, vitamin B12 1060 H Meds: abx, IVF, KCl, pepcid Ht: 63in Wt: 130.13lb 03/11, 110lb 03/16 (inaccurate weight on admission?) BMI: 23.1kg/m2 IBW: 115lb Malnutrition Evaluation (03/11) The patient does not meet criteria for a specified degree of malnutrition at this time. Will re-evaluate at follow-up as appropriate. Nutrition Prescription (Diet Order): NPO Estimated Nutritional Needs: Calories: 1250 - 1500kcal (25-30kcal/kg/d) Weight used : Actual BW 50kg Protein : 50-75g (1-1.5g/kg/d) Weight used: Actual BW 50kg Diet Adequacy: Not meeting calorie needs, Not meeting protein needs Diet Education Needs Assessment: Diet education indicated, but patient not appropriate for education at this time. Nutrition Care Level: mod (pending TF) Nutrition Diagnosis: Inadequate oral intake related to current medical status as evidenced by pt requiring TF as main source of nutrients. Goal: Patient will meet 75-100% of estimated needs by follow up Progress: Not progressing Interventions: Composition, Rate, Route Monitoring/Evaluation: Total energy intake, Total protein intake, Formula, Weight change Signed: Wanda Cordova MS, RD, LD
--- NOTE | 2018-03-16 17:42 | Consultation ---
DATE OF CONSULTATION: March 16, 2018 HISTORY: Predominantly from chart, electronic records. Patient very weak. Kind of sleepy. Arousable. Nurse by bedside. Poor historian. Able to follow commands. Unable to completely give me review of system but has multiple comorbidities including history of heart failure, COPD, hypertension, history of prior pacemaker placement. Has been admitted to the emergency room with exacerbation of CHF and COPD. Apparently diuresed. Renal has been consulted for abnormal kidney function as well as worsening hypernatremia and hyperchloremia. Patient currently laying supine. Does not appear to be in any respiratory distress, but tachypneic. No dyspnea noted. LABS: Show sodium 152, potassium 3.2, chloride 112, bicarbonate 27, creatinine 1.19. White count 10.2, hemoglobin 10.7. ALLERGIES: SHE HAS GOT MULTIPLE ALLERGIES INCLUDING CLINDAMYCIN, DOXYCYCLINE, CODEINE, IODINE AND SULFA. CURRENT MEDICATIONS: On lisinopril 20 mg daily. She is on mupirocin nasal ointment. She is on albuterol, Atrovent nebulizer. Labetalol 10 mg p.r.n. q.6. Aztreonam 500 mg IV q.12. On potassium chloride 30 mEq daily. Also on furosemide 80 mg q.12. For complete list, please see MAR. PHYSICAL EXAMINATION GENERAL: Awake, alert, lying supine. No apparent distress. A thin-built female, very poor muscle mass. VITALS: Blood pressure 158/66, pulse rate 85, afebrile. Oxygen saturation 100% on 2 liters nasal cannula. HEAD AND NECK: Bitemporal wasting. Slightly sunken eyes. Oral mucosa dry. Neck veins not distended. LUNGS: Harsh vesicular breath sounds. End-expiratory rhonchi. No rales. Decreased air entry bilateral lower zone. HEART: S1, S2 audible. ABDOMEN: Otherwise soft, nontender. LOWER EXTREMITY EXAMINATION: No edema. Labs show hypernatremia, hyperchloremia, hypokalemia. Plan on replacing potassium, hydrating carefully. Will hold off on scheduled potassium chloride, Lasix and lisinopril at this point in time. Gentle IV hydration. Correction of hypernatremia, hyperosmolar state. Overall multiple comorbidities discussed with RN. Job#: [id number] ALEJANDRINA
--- NOTE | 2018-03-16 19:46 | NUR ---
Report received from AM nurse Eliane. Patient received alertx1,confused resting on her bed. No respiratory distress noted. Patient had continued on 3liters via nasal canula,Spo2 maintained 99%. Bed in lower position,locked. Call winters within reach. Will continue to monitor.
--- NOTE | 2018-03-16 20:45 | NUR ---
Patient with multiple attempts to get out of bed with unassisted. Bed in lower position,locked and alarm on.Sitter 1:1 at the bedside.will continue to monitor
--- NOTE | 2018-03-16 22:45 | Progress Note ---
DATE: March 16, 2018 CARDIOLOGY PROGRESS NOTE SUBJECTIVE: Patient denies chest pain or shortness of breath. She is scheduled for modified barium swallow today. OBJECTIVE VITAL SIGNS: Temperature 97.7 degrees, pulse 73, respiratory rate 20, blood pressure 165/83, and oxygen saturation 100% on 2 L nasal cannula. GENERAL: Elderly woman, frail, no acute distress. Awake and alert. LUNGS: Clear to auscultation bilaterally. No wheezes or crackles. CARDIOVASCULAR: Normal rate. Regular rhythm. No murmur. Normal S1, S2. ABDOMEN: Soft, nontender. EXTREMITIES: Pitting edema 1+. CARDIAC MEDICATION: Enoxaparin 40 mg subcutaneous daily. LABS: None today. TELEMETRY: V-paced. IMPRESSIONS 1. Dnyaz-qe-jdxtsiy diastolic heart failure. 2. Pulmonary edema. 3. Small pericardial effusion. 4. Elevated troponin. 5. Status post pacemaker placement. 6. Aspiration. 7. Acute kidney injury. RECOMMENDATIONS: Patient remains volume overloaded; however, given her ANA MARIA and currently n.p.o. status secondary to aspiration, we are holding diuretics. Start scheduled IV antihypertensive therapy until oral access can be obtained. Patient's elevated troponin is likely secondary to type 2 myocardial infarction in the setting of jjfvj-xx-tfsuwtz diastolic heart failure is not consistent with acute coronary syndrome. Continue monitoring patient on telemetry. Given her multiple comorbidities and frailty, recommend conservative medical therapy. Thank you for this consult. We will continue to follow. Job#: [id number] CF ZEB
[2018-03-17] VITALS (7 sets, daily range): BP systolic 167–198; BP diastolic 77–91
--- NOTE | 2018-03-17 00:10 | NUR ---
Patient assisted to give bed bath with help of Samuel Jeter, patient tolerated well. Assisted to changed bedsheet,gown and pads. V/S WNL. Will continue to monitor.
[2018-03-17] MEDS: AZTREONAM 1 GM/NS 50 ML 50 ML IV SCH ×2 (00:28→12:12)
[2018-03-17] MEDS: ALBUTEROL/IPRATROPIUM 3 ML NEB NEB SCH ×6 (03:00→23:05)
[2018-03-17] MEDS: HYDRALAZINE HCL 20 MG/ML VIAL IV PRN ×3 (04:37→21:57)
[2018-03-17 05:26] LABS: BASOPHILS # (AUTO) 0.1 (0.0-0.1); BASOPHILS % 0.6 % (0.0-1.0); EOSINOPHILS # (AUTO) 0.2 (0.0-0.4); EOSINOPHILS % 1.6 % (0.0-6.0); HEMATOCRIT 30.2 % (34.2-44.1); HEMOGLOBIN 9.1 g/dL (12.0-16.0); LYMPHOCYTES # (AUTO) 0.9 (1.0-3.2); LYMPHOCYTES % 8.7 % (18.0-39.1); MEAN CORPUSCULAR HEMOGLOBIN 30.1 pg (28-32); MEAN CORPUSCULAR HGB CONC 30.1 g/dL (31-35); MONOCYTES % 9.6 % (4.4-11.3); NEUTROPHILS # (AUTO) 7.8 (2.1-6.9); NEUTROPHILS % 77.3 % (38.7-80.0); PLATELET COUNT 376 x10e3/uL (140-360); RED BLOOD COUNT 3.02 x10e6/uL (3.6-5.1); RED CELL DISTRIBUTION WIDTH 16.3 % (11.7-14.4)
[2018-03-17 06:11] LABS: ALBUMIN/GLOBULIN RATIO 0.5 (0.8-2.0); ANION GAP 14.6 mmol/L (8-16); CALCIUM 8.7 mg/dL (8.4-10.2); CREATININE, SERUM 1.19 mg/dL (0.57-1.11); POTASSIUM 3.6 mmol/L (3.5-5.1)
--- NOTE | 2018-03-17 06:59 | NUR ---
Report given to AM nurse Del Rio.
[2018-03-17 07:04] LABS: MAGNESIUM 2.2 MG/DL (1.3-2.1); PHOSPHORUS 3.3 MG/DL (2.3-4.7)
[2018-03-17 07:32] LABS: EOSINOPHILS % (MANUAL) 2 % (0-7); LYMPHOCYTES % (MANUAL) 12 % (19-48); MONOCYTES % (MANUAL) 10 % (3.4-9.0); MYELOCYTES % (MANUAL) 2 % (0-0); NEUTROPHILS % (MANUAL) 73 % (40-74); NUCLEATED RED BLOOD CELLS 3
[2018-03-17 07:34] LABS: ANISOCYTOSIS SLIGHT; HYPOCHROMASIA MODERATE; PLATELET ESTIMATE ADEQUATE; PLATELET MORPHOLOGY COMMENT FEW LARGE; RBC MORPHOLOGY COMMENT NORMAL
--- NOTE | 2018-03-17 08:00 | Consultation ---
DATE OF CONSULTATION: March 17, 2018 This is an 87-year-old who was initially admitted to the hospital because of problem with shortness of breath. The patient was found to have nyosm-zf-uhhnyhh systolic heart failure as well as respiratory failure. She does have a history of COPD. Apparently she has failed swallow evaluations. Therefore, GI consult is obtained for PEG placement. Medical problems are significant for history of CHF and history of COPD. ALLERGIES: NONE. CURRENT MEDICATIONS: Include hydralazine, aztreonam, Lovenox, Pepcid, labetalol. SOCIAL HISTORY: Smoker for 65 to 70-plus years. Otherwise, no any alcohol abuse. FAMILY HISTORY: Noncontributory. REVIEW OF SYSTEMS: Unobtainable. The patient currently is confused. PHYSICAL EXAMINATION GENERAL: The patient is awake, lying in bed, confused. VITAL SIGNS: Afebrile currently. HEAD, EYES, EARS, NOSE AND THROAT: Normocephalic and atraumatic. Sclerae are anicteric. NECK: Supple. CARDIAC: Regular. LUNGS: Clear. ABDOMEN: Soft. Not distended at this point. EXTREMITIES: No clubbing. LAB VALUES: As of today, hemoglobin is 9.1, hematocrit 30.2, platelet count 376. BUN 54, creatinine 1.19. Liver enzymes are normal. IMPRESSION 1. Oropharyngeal dysphagia. Patient needs a percutaneous endoscopic gastrostomy tube. 2. History of congestive heart failure. 3. History of chronic obstructive pulmonary disease. RECOMMENDATIONS: Continue current care at this point. We will proceed with EGD with PEG tomorrow and follow labs tomorrow. Job#: [id number] cc:SYD FERNANDO MD
[2018-03-17] MEDS: MUPIROCIN 2% OINT 22 GM TUBE TOP SCH ×2 (08:06→16:14)
[2018-03-17] MEDS: FAMOTIDINE 20 MG/2 ML VIAL IV SCH (08:06)
[2018-03-17] MEDS: BALSAM PERU/CASTOR OIL 60 GM OINT...G. TP SCH (08:06)
[2018-03-17] MEDS: POTASSIUM CHLORIDE 20 MEQ in DEXTROSE 5% 1,000 ML IV SCH (08:12)
[2018-03-17] MEDS ORDERED: CHLOROTHIAZIDE SODIUM 500 MG VIAL IV NR (08:30)
--- NOTE | 2018-03-17 09:15 | NUR ---
ST Note: No order received for Neuromuscular Electrical Stimulation (NMES) for pt's dysphagia. Spoke with MARK Del Rio, who reported she will discuss with Dr. Wright when he rounds later today.
[2018-03-17] MEDS ORDERED: LABETALOL HCL 5 MG/ML 20ML VIAL IV PRN (10:15)
--- NOTE | 2018-03-17 10:29 | Progress Note ---
DATE: March 17, 2018 CARDIOLOGY PROGRESS NOTE SUBJECTIVE: Patient is more calm today. She denies chest pain or shortness of breath. She failed her modified barium swallow and is scheduled for PEG tube tomorrow. OBJECTIVE VITAL SIGNS: Temperature 97.2 degrees, pulse 70, respiratory rate 18, blood pressure 183/82, oxygen saturation 99% on 2 L nasal cannula. GENERAL: Elderly woman, frail, no acute distress. LUNGS: Clear to auscultation bilaterally. No wheezes or crackles. CARDIOVASCULAR: Normal rate. Regular rhythm. No murmur. Normal S1, S2. ABDOMEN: Soft, nontender. EXTREMITIES: No edema. CURRENT MEDICATIONS: Reviewed. LABS: WBC 10.09, hemoglobin 9.1, hematocrit 30.2, platelets 376. Sodium 145, potassium 3.6, chloride 118, CO2 26, BUN 54, creatinine 1.19. BNP 2261. TELEMETRY: V paced. IMPRESSIONS 1. Rpikd-hx-eiycabf diastolic heart failure. 2. Pulmonary edema. 3. Small pericardial effusion. 4. Elevated troponin. 5. Status post pacemaker placement. 6. Aspiration. 7. Acute kidney injury. RECOMMENDATIONS: Patient remains volume overloaded; however, given her ANA MARIA and current n.p.o. status secondary to aspiration, we are holding diuretics. Start scheduled IV antihypertensive therapy until PEG can be placed. Patient's elevated troponin is likely secondary to type-2 myocardial infarction in the setting of qxcra-yg-iqlyklz diastolic heart failure and is not consistent with acute coronary syndrome. Continue monitoring patient on telemetry. Given her multiple comorbidities and frailty, recommend conservative medical therapy. Thank you for this consult. We will continue to follow. Job#: [id number]
[2018-03-17] MEDS ORDERED: ACETAMINOPHEN 1000 MG/100 ML IV PRN (10:30)
[2018-03-17] MEDS: LABETALOL HCL 5 MG/ML 20ML VIAL IV SCH ×2 (12:12→17:25)
--- NOTE | 2018-03-17 14:51 | NUR ---
CASE MANAGEMENT INITIAL ASSESSMENT Membership Secretary to bedside to discuss plan of care with patient/family. CM/SW role and care transitions discussed. Anticipated discharge plan discussed along with duration of care. CM discussed patients right to make decisions in care. CM/SW work hours given. Patient lives: PATIENT LIVES ALONE [place] [facility] [place] [place] ( [id number]) Admit/Transfer: ED POA/Emergency contact: DAUGHTER LOTUS SEWELL: [phone] Current/Previous Home Health: N/A PCP/Follow-up Care: DR. LAUREN DAVIS Current/Previous DME: JANNIE Other Services: WITH [employer] THAT ASSIST WITH CHORES AROUND THE HOUSE Employment Status: RETIRED Areas of Concerns: MOBILITY Referral Needs: LONG-TERM FACILITY Education Needs: NONE IMM/BANKS given and signed (if applicable): IMM Goal for discharge:DISCHARGE TO SKILLED FACILITY OR [facility] FACILITY CM left business card at the bedside with contact information. Name and number was also written on the patients whiteboard. Patient verbalized understanding of discussion. CM will follow-up with ongoing discharge and transition of care needs
[2018-03-18] VITALS (15 sets, daily range): BP systolic 113–172; BP diastolic 42–98
[2018-03-18] MEDS: LABETALOL HCL 5 MG/ML 20ML VIAL IV SCH ×4 (00:01→16:43)
[2018-03-18] MEDS: POTASSIUM CHLORIDE 20 MEQ in DEXTROSE 5% 1,000 ML IV SCH ×2 (01:44→13:39)
[2018-03-18] MEDS: ALBUTEROL/IPRATROPIUM 3 ML NEB NEB SCH ×6 (03:00→23:00)
[2018-03-18 05:17] LABS: BASOPHILS % 0.4 % (0.0-1.0); EOSINOPHILS # (AUTO) 0.1 (0.0-0.4); EOSINOPHILS % 1.1 % (0.0-6.0); HEMATOCRIT 29.3 % (34.2-44.1); HEMOGLOBIN 8.8 g/dL (12.0-16.0); LYMPHOCYTES % 12.5 % (18.0-39.1); MEAN CORPUSCULAR HEMOGLOBIN 29.6 pg (28-32); MEAN CORPUSCULAR VOLUME 98.7 fL (81-99); MONOCYTES # (AUTO) 0.9 (0.2-0.8); MONOCYTES % 10.8 % (4.4-11.3); NEUTROPHILS # (AUTO) 5.9 (2.1-6.9); NEUTROPHILS % 72.9 % (38.7-80.0); PLATELET COUNT 312 x10e3/uL (140-360); RED BLOOD COUNT 2.97 x10e6/uL (3.6-5.1); RED CELL DISTRIBUTION WIDTH 16.1 % (11.7-14.4)
[2018-03-18 05:24] LABS: INR 1.18
[2018-03-18 05:39] LABS: ANION GAP 10.5 mmol/L (8-16); CALCIUM 8.4 mg/dL (8.4-10.2); CREATININE, SERUM 1.02 mg/dL (0.57-1.11); POTASSIUM 3.5 mmol/L (3.5-5.1)
--- NOTE | 2018-03-18 07:09 | NUR ---
CALLED PLACED TO DR. FERNANDO CONCERNING SITTER ORDERS CHANGE, TALKED WITH NERY, AWAITING RETURN CALL, INFORMED AM NURSE.
--- NOTE | 2018-03-18 08:30 | NUR ---
Per kristin Montoya for 1 to 1 sitter to change to PRN.
[2018-03-18] MEDS: FAMOTIDINE 20 MG/2 ML VIAL IV SCH (09:50)
[2018-03-18] MEDS: MUPIROCIN 2% OINT 22 GM TUBE TOP SCH ×2 (09:50→16:34)
[2018-03-18] MEDS: BALSAM PERU/CASTOR OIL 60 GM OINT...G. TP SCH (09:50)
[2018-03-18] MEDS ORDERED: VANCOMYCIN 1GM/NS 250 ML 250 ML ONE (12:07)
[2018-03-18] MEDS: HYDRALAZINE HCL 20 MG/ML VIAL IV PRN (18:42)
--- NOTE | 2018-03-18 19:00 | NUR ---
RECEIVED REPORT FROM JAISON RN AT PT'S BEDSIDE, PT AAOX3 BREATHING EVEN AND UNLABORED, PT IN BED BED ALARM ON, NO FAMILY AT BEDSIDE, PT CONFUSED ASKING A FEW, PT AWARE OF NAME, ABDOMINAL BINDER ON FOR NEW PEG TUBE INSERTION AND SAFETY MEASURES
--- NOTE | 2018-03-18 19:13 | NUR ---
Report given at bedside to MARK Corrales.
--- NOTE | 2018-03-18 19:13 | Progress Note ---
DATE: March 18, 2018 CARDIOLOGY PROGRESS NOTE SUBJECTIVE: Patient is awake, did not respond to questions. OBJECTIVE: VITAL SIGNS: Temperature 97.7 degrees, pulse 70, respiratory rate 16, blood pressure 181/84, oxygen saturation 99% on 2 liters nasal cannula. GENERAL: Elderly woman, frail, no acute distress. LUNGS: Clear to auscultation bilaterally. No wheezes or crackles. CARDIOVASCULAR: Normal rate. Regular rhythm. No murmur. Normal S1, S2. ABDOMEN: Soft, nontender. EXTREMITIES: No edema. CARDIAC MEDICATIONS: Labetalol 10 mg IV q.6h. LABS: WBC 8.09, hemoglobin 8.8, hematocrit 29.3, platelets 312,000. Sodium 150, potassium 3.5, chloride 115, CO2 28, BUN 50, creatinine 1.02. TELEMETRY: V-paced. IMPRESSIONS 1. Detgq-il-gndtruf diastolic heart failure. 2. Pulmonary edema. 3. Small pericardial effusion. 4. Elevated troponin. 5. Status post pacemaker placement. 6. Aspiration. 7. Acute kidney injury, improved. RECOMMENDATIONS: Patient remains volume overloaded, however, given her n.p.o. status secondary to aspiration, we are holding diuretics. Patient's blood pressure remains elevated despite initiation of IV labetalol. PEG was placed today. Continue p.r.n. IV antihypertensive. Once PEG is cleared for use, we will resume her home blood pressure medications. Patient's elevated troponin is likely secondary to type 2 myocardial infarction in the setting of bdehz-xw-preuzvu diastolic heart failure, is not consistent with acute coronary syndrome. Given her multiple comorbidities and frailty, recommend conservative medical therapy. Monitor patient closely on telemetry. Thank you for this consult. We will continue to follow. Job#: [id number]
[2018-03-18] MEDS ORDERED: PROPOFOL IV EMULSION 10 MG/ML 50 ML VIAL ONE (21:05)
[2018-03-19] VITALS (7 sets, daily range): BP systolic 142–183; BP diastolic 19–86
[2018-03-19] MEDS: LABETALOL HCL 5 MG/ML 20ML VIAL IV SCH ×2 (01:40→06:03)
--- NOTE | 2018-03-19 02:15 | NUR ---
Pt defected med soft stool, and noted small amt of blood, when looking closer pt has external hemorrhoid. will inform the day shift nurse to order some thing for it . Pt states she usually takes some kind of cream when she gets hemorrhoids
[2018-03-19] MEDS: ALBUTEROL/IPRATROPIUM 3 ML NEB NEB SCH ×5 (03:00→23:15)
[2018-03-19 05:08] LABS: BASOPHILS % 0.3 % (0.0-1.0); EOSINOPHILS # (AUTO) 0.1 (0.0-0.4); EOSINOPHILS % 0.9 % (0.0-6.0); HEMATOCRIT 29.5 % (34.2-44.1); LYMPHOCYTES # (AUTO) 0.9 (1.0-3.2); LYMPHOCYTES % 8.8 % (18.0-39.1); MEAN CORPUSCULAR HEMOGLOBIN 29.9 pg (28-32); MEAN CORPUSCULAR HGB CONC 30.5 g/dL (31-35); MONOCYTES # (AUTO) 0.7 (0.2-0.8); MONOCYTES % 6.2 % (4.4-11.3); NEUTROPHILS # (AUTO) 8.8 (2.1-6.9); NEUTROPHILS % 81.7 % (38.7-80.0); PLATELET COUNT 316 x10e3/uL (140-360); RED BLOOD COUNT 3.01 x10e6/uL (3.6-5.1)
[2018-03-19 05:32] LABS: ANION GAP 11.6 mmol/L (8-16); CALCIUM 8.2 mg/dL (8.4-10.2); CREATININE, SERUM 1.04 mg/dL (0.57-1.11); MAGNESIUM 2.1 MG/DL (1.3-2.1); PHOSPHORUS 3.7 MG/DL (2.3-4.7); POTASSIUM 3.6 mmol/L (3.5-5.1)
--- NOTE | 2018-03-19 06:39 | NUR ---
PT GIVEN SPONGE BATH, TOLERATED WELL. SKIN FRAGILE. PT TURNED AND REPOSITIONED.
--- NOTE | 2018-03-19 06:41 | NUR ---
NO CHANGES TO PT STATUS DURING THE NIGHT, V/S STABLE, REPORTED OFF TO ONCOMING NURSE.
--- NOTE | 2018-03-19 08:00 | NUR ---
PATIENT REPOSITION IN BED FOR COMFORT, SHE DENIES SHORTNESS OF BREATH AND PAIN. PEG TUBE INTACT, 70ML OF DARK BROWN RESIDUAL OBTAINED. TUBE FEEDING TURN OFF FOR NOW, WILL REASSESS IN AN HOUR.
--- NOTE | 2018-03-19 09:08 | NUR ---
NO ACUTE DISTRESS OBSERVED, TUBE FEEDING REASSESSED WITH RESIDUAL OF 60ML OBTAINED. WILL KEEP THE TUBE FEEDING OFF AND REASSESS AGAIN AND NOTIFY DR JARVIS.
[2018-03-19] MEDS: BALSAM PERU/CASTOR OIL 60 GM OINT...G. TP SCH (09:30)
[2018-03-19] MEDS: FAMOTIDINE 20 MG/2 ML VIAL IV SCH (09:45)
[2018-03-19] MEDS: FUROSEMIDE INJ 10 MG/ML 2 ML VIAL IV SCH (09:45)
[2018-03-19 09:50] LABS: EOSINOPHILS % (MANUAL) 1 % (0-7); LYMPHOCYTES % (MANUAL) 6 % (19-48); MONOCYTES % (MANUAL) 4 % (3.4-9.0); NEUTROPHILS % (MANUAL) 87 % (40-74)
[2018-03-19 09:52] LABS: ANISOCYTOSIS SLIGHT; HYPOCHROMASIA SLIGHT; PLATELET ESTIMATE ADEQUATE; RBC MORPHOLOGY COMMENT NORMAL
[2018-03-19 09:53] LABS: PLATELET MORPHOLOGY COMMENT NORMAL
--- NOTE | 2018-03-19 10:09 | Progress Note ---
DATE: March 19, 2018 CARDIOLOGY PROGRESS NOTE SUBJECTIVE: The patient remains confused. She has been started on tube feeding. OBJECTIVE VITALS: Temperature 97.3 degrees, pulse 86, respiratory rate 16, blood pressure 164/82, oxygen saturation 94% on 2 L nasal cannula. GENERAL: Elderly chronically ill-appearing woman in no acute distress. LUNGS: Clear to auscultation bilaterally. No wheezes or crackles. CARDIOVASCULAR: Normal rate. Regular rhythm. No murmur. Normal S1 and S2. ABDOMEN: Soft and nontender. EXTREMITIES: No edema. CARDIAC MEDICATIONS: Labetalol 10 mg IV q.6 h. LABS: WBC 10.73, hemoglobin 9, hematocrit 29.5, and platelets 316,000. Sodium 144, potassium 3.6, chloride 111, CO2 25, BUN 46, creatinine 1.04. Telemetry V-paced. IMPRESSION 1. Yciei-lv-jtznfcp diastolic heart failure. 2. Pulmonary edema. 3. Small pericardial effusion. 4. Elevated troponin. 5. Status post pacemaker placement. 6. Aspiration. 7. Acute kidney injury, improved. RECOMMENDATIONS: The patient's PEG can now be used. Start carvedilol and discontinue IV labetalol. Titrate antihypertensive therapies as necessary. The patient would likely benefit from resuming IV diuretics. We will start with low-dose IV furosemide. Continue current cardiac medications otherwise. The patient's elevated troponin is likely secondary to type II myocardial infarction in the setting of equll-wi-jlkrudl diastolic heart failure, and is not consistent with acute coronary syndrome. Given her multiple comorbidities and frailty, recommend conservative medical therapy. Monitor the patient closely on telemetry. Thank you for this consult. We will continue to follow. Job#: [id number] [place]
--- NOTE | 2018-03-19 10:43 | NUR ---
DR FERNANDO WAS ON THE UNIT TO SEE THE PATIENT, HE DISCUSSED EXTENSIVELY WITH THE FAMILY THE PLAN OF CARE FOR THE PATIENT. JEVITY TUBE FEEDING STARTED AT 20ML PER HOUR ORDERED. HEAD OF BED ELEVATED, CALL LIGHT WITHIN EASY REACH.
--- NOTE | 2018-03-19 11:18 | NUR ---
PATIENT IS ROLLING OFF THE UNIT PER BED TO RADIOLOGY FOR HEAD CT, CONDITION STABLE WITHOUT ACUTE DISTRESS.
--- NOTE | 2018-03-19 11:37 | NUR ---
PATIENT IS BACK ON THE UNIT IN STABLE CONDITION AND SHE DENIES PAIN.
--- NOTE | 2018-03-19 12:22 | Diagnostic Imaging Report ---
Exam: Head CT without contrast History: Altered mental status Comparison studies: None. Technique: Axial images were obtained from the skull base to the vertex. Coronal and sagittal images reconstructed from the axial data. Dose modulation, iterative reconstruction, and/or weight based adjustment of the mA/kV was utilized to reduce the radiation dose to as low as reasonably achievable. Radiation dose: Total DLP: 1036 mGy*cm. Estimated effective dose: DLP x 0.015 Intravenous contrast: None Findings: Scalp: No abnormalities. Bones: No fractures, blastic or lytic lesions. Brain sulci: Mildly prominent. Ventricles: Normal in size and configuration. No hydrocephalus. Extra-axial spaces: No masses, no fluid collection. Parenchyma: No mass, acute hemorrhage or acute or chronic cortical vascular insults. A few subtle scattered hypodensities in the supratentorial white matter are nonspecific but most compatible with chronic microvascular ischemic changes. Sellar/suprasellar region: No abnormalities. Craniocervical junction: Patent foramen magnum. No Chiari one malformation. Incidental findings: Lens replacements for previous cataract surgery. Atherosclerotic calcifications in the carotid siphons. Nonspecific bilateral middle ear mastoid opacification. Hyperdensity along the mucosal surfaces of the oral cavity and oral pharynx related to recent barium swallow. IMPRESSION: 1. No acute intracranial abnormalities. 2. Mild age-related generalized brain volume loss and mild chronic microvascular ischemic changes. Signed by: Dr. Figueroa Tristan M.D. on 03/19/2018 12:19 PM
--- NOTE | 2018-03-19 14:51 | NUR ---
Nutrition Intervention Note RD Recommendation(s) for Physician: - Rec continuous TF with Jevity 1.2@ 50mL/hr to provide 1440kcal, 67g protein, and 970mL fluids. meet 100% of est calorie and protein needs - Rec free H2O flushes of 30mL q 4hr; additional flushes per MD discretion - Monitor for gastric residual. If gastric residual >250mL after 2nd gastric residual check, consider Reglan to promote motility. If >500mL, hold TF, obtain KUB and consult RD. - Monitor daily labs; replace low lytes - Obtain daily weight Plan of Care: RD following, monitoring for tolerance and adequacy, TF rec Nutrition reason for involvement: Follow up RD Assessment 03/19 - Chart reviewed. Pt is s/p PEG placement. TF started via PEG this afternoon. Visited pt in the room. Per son, pt remains confused and restless. No nausea or vomiting noted. Son has some questions regarding pts swallow study; speech evaluation has been ordered. Communicated TF goal to RN Sonia. Monitor for gastric residual. If gastric residual >250mL after 2nd gastric residual check, consider Reglan to promote motility. If >500mL, hold TF, obtain KUB and consult RD. Will continue to monitor and follow. 03/16 Chart reviewed. Pt is s/p extubation and on room air. Per RN, pt has failed swallow study. Possible PEG placement. Pt remains confused and sitter presents on bedside. TF was held as pt pulled out her NGT. RD will communicate TF recommendation to RN when feeding is feasible. Will continue to monitor and follow. 03/11 Chart reviewed. 87yo F, who is admitted for worsening SOB. Pt remains intubated and on vent. Propofol was stopped. No pressor meds. K was repleted. Currently on IV Lasix. RD consulted for TF recommendation. Visited pt in the room. Vital HP was started at 20mL/hr. No family present on bedside to provide hx. Communicated TF rec with MARK Garvin. Will continue to monitor and follow. Principal Problems/Diagnoses: 1. Ylbow-de-nqargxo diastolic heart failure exacerbation. 2. Small pericardial effusion. 3. Pulmonary edema with large pleural effusion. 4. Elevated troponins. PMH: Chronic diastolic heart failure, pacemaker implantation, tobacco use, hypertension, hyperlipidemia, COPD GI: abdomen flat, soft, 5 episodes of liquid brown stool -03/19 (possibly due to large amount of water flushes from yesterday) Skin: no pressure ulcer noted Labs: 03/19 - BUN 46 H, Ca 8.2 L (03/11) K 3.4L, Creatinine 1.14 H, Glucose 67 L, Ca 8.0 L, vitamin B12 1060 H Meds: lasix, pepcid, Ht: 63in Wt: 130.13lb 03/11, 110lb 03/16 (inaccurate weight on admission?), 116.19lb 03/19 BMI: 23.1kg/m2 IBW: 115lb Malnutrition Evaluation (03/11) The patient does not meet criteria for a specified degree of malnutrition at this time. Will re-evaluate at follow-up as appropriate. Nutrition Prescription (Diet Order): Tube feeding with Jevity 1.2 Estimated Nutritional Needs: Calories: 1250 - 1500kcal (25-30kcal/kg/d) Weight used : Actual BW 50kg Protein : 50-75g (1-1.5g/kg/d) Weight used: Actual BW 50kg Diet Adequacy: Not meeting calorie needs, Not meeting protein needs Diet Education Needs Assessment: Diet education indicated, but patient not appropriate for education at this time. Nutrition Care Level: mod Nutrition Diagnosis: Inadequate oral intake related to current medical status as evidenced by pt requiring TF as main source of nutrients. Goal: Patient will meet 75-100% of estimated needs by follow up Progress: progressing Interventions: Composition, Rate, Route Monitoring/Evaluation: Total energy intake, Total protein intake, Formula, Weight change Signed: Wanda Cordova, , RD, LD
[2018-03-19] MEDS: HYDROCORTISONE 2.5% PR CRM 1 OZ TUBE PR SCH ×2 (15:00→21:00)
--- NOTE | 2018-03-19 15:55 | NUR ---
PATIENT AMBULATED IN THE ROOM WITH ROLLING WALKER, PHYSICAL THERAPIST WAS WITH THE PATIENT. SHE'S NOW BACK IN THE BED RESTING COMFORTABLY, TOLERATING TUBE FEEDING WITH VOMITING OR DIARRHEA. FAMILY MEMBERS VISITING WITH THE PATIENT, CALL LIGHT WITHIN EASY REACH.
--- NOTE | 2018-03-19 16:25 | NUR ---
SPOKE WITH FAMILY AND GAVE CHOICES OF FACILITIES IN NETWORK THEY WILL LOOK AT THEM AND GIVE CHOICE TO SW.
[2018-03-19] MEDS ORDERED: CARVEDILOL 12.5 MG TAB PO SCH ×2 (17:00)
--- NOTE | 2018-03-19 17:58 | NUR ---
PATIENT CONDITION REMAINS STABLE, SHE DENIES PAIN. DR JARVIS WAS IN THE ROOM TO SEE THE PATIENT, HE ORDERED TO INCREASE THE TUBE FEEDING TO 30ML/HR NOW AND INCREASE IT EVERY 4HOURS BY 10ML FOR A GOAL OF 50ML/HR. BED ALARM ON, CALL LIGHT WITHIN EASY REACH, PATIENT HAS NOT MADE ANY ATTEMPTS TO GET OUT OF THE BED.
--- NOTE | 2018-03-19 20:00 | NUR ---
RECEIVED PT AAOX1-2. PT AWARE SHES IN THE HOSPITAL, BUT NOT WHERE AT IN THE HOSPITAL. DDENIE PAIN UPON ASSESSMENT. BED ALARM SET ON THE BED, HOWEVER PT CONTINUES TO TRY AND GET OUT OF THE BED AND MAKE THE ALARM GO OFF, PT THINKS ITS FUNNY TO ATTEMPT TO GET OUT THE BED.
--- NOTE | 2018-03-19 23:00 | NUR ---
NURSE RECEIVED ANOTHER PT AND PT'S BED ALARM CONTINUED TO GO OFF. CALLED NURSE KITCHEN PORTER ASKING FOR SITTER, UNABLE TO MONITOR PT WHILE IN ANOTHER ROOM. INFORMED KITCHEN PORTER IT WAS UNSAFE DUE TO PT SO UNPREDICTABLE. KITCHEN PORTER AGREED AND PULLED BARBARA ARMSTRONG FROM ICU DEPT.
[2018-03-20] VITALS (12 sets, daily range): BP systolic 136–189; BP diastolic 62–88
[2018-03-20] MEDS: ALBUTEROL/IPRATROPIUM 3 ML NEB NEB SCH ×6 (03:00→22:00)
--- NOTE | 2018-03-20 04:00 | NUR ---
CHECK ON AIR CONTROL ELECTRONICS OPERATOR AND PT, PT DEFECATED 1 LG STOOL AND WAS TURNED AND REPOSITION FOR COMFORT MEASURES. DENIES PAIN WHEN PT WAS ASKED, STILL SLIGHTLY CONFUSED, REQUIRING SITTER. DUE TO PT ATTEMPTS TO GET OUT OF BED.
[2018-03-20 05:14] LABS: BASOPHILS % 0.3 % (0.0-1.0); EOSINOPHILS # (AUTO) 0.1 (0.0-0.4); EOSINOPHILS % 1.1 % (0.0-6.0); HEMATOCRIT 29.3 % (34.2-44.1); LYMPHOCYTES # (AUTO) 1.1 (1.0-3.2); LYMPHOCYTES % 12.5 % (18.0-39.1); MEAN CORPUSCULAR HEMOGLOBIN 30.2 pg (28-32); MEAN CORPUSCULAR HGB CONC 30.7 g/dL (31-35); MEAN CORPUSCULAR VOLUME 98.3 fL (81-99); MONOCYTES # (AUTO) 0.8 (0.2-0.8); MONOCYTES % 8.5 % (4.4-11.3); NEUTROPHILS # (AUTO) 6.9 (2.1-6.9); NEUTROPHILS % 75.7 % (38.7-80.0); PLATELET COUNT 282 x10e3/uL (140-360); RED BLOOD COUNT 2.98 x10e6/uL (3.6-5.1)
[2018-03-20 05:40] LABS: ANION GAP 12.4 mmol/L (8-16); CALCIUM 8.1 mg/dL (8.4-10.2); CREATININE, SERUM 0.99 mg/dL (0.57-1.11); POTASSIUM 4.4 mmol/L (3.5-5.1)
--- NOTE | 2018-03-20 07:15 | NUR ---
REPORTED OFF TO JOHN RN AT PT'S BED SIDE. PT DENIES ANY DISCOMFORTS AT THIS TIME. RESTING IN BED WITH SIDE RAILS UP AND BED ALARM ON.
[2018-03-20] MEDS: FAMOTIDINE 20 MG/2 ML VIAL IV SCH (09:59)
[2018-03-20] MEDS: HYDROCORTISONE 2.5% PR CRM 1 OZ TUBE PR SCH ×3 (09:59→21:21)
[2018-03-20] MEDS: BALSAM PERU/CASTOR OIL 60 GM OINT...G. TP SCH (09:59)
[2018-03-20] MEDS: FUROSEMIDE INJ 10 MG/ML 2 ML VIAL IV SCH (09:59)
[2018-03-20] MEDS: LABETALOL HCL 5 MG/ML 20ML VIAL IV PRN ×2 (11:50→16:40)
--- NOTE | 2018-03-20 12:27 | Progress Note ---
DATE: March 20, 2018 CARDIOLOGY PROGRESS NOTE SUBJECTIVE: The patient is awake. However, she remains confused. OBJECTIVE VITALS: Temperature 97.3 degrees, pulse 82, respiratory rate 18, blood pressure 166/62, oxygen saturation 99% on 2 L nasal cannula. GENERAL: Elderly woman, frail, in no acute distress. LUNGS: Clear to auscultation bilaterally. No wheezes or crackles. CARDIOVASCULAR: Normal rate. Regular rhythm. No murmur. Normal S1 and S2. ABDOMEN: Soft and nontender. EXTREMITIES: 1+ pitting edema. CARDIAC MEDICATIONS 1. Furosemide 20 mg IV daily. 2. Carvedilol 6.25 mg p.o. b.i.d. LABS: WBC 9.1, hemoglobin 9, hematocrit 29.3, and platelets 282. Sodium 150, potassium 4.4, chloride 115, CO2 27, BUN 40, creatinine 0.99. TELEMETRY: V paced. IMPRESSION 1. Arylr-vl-zwhxwom diastolic heart failure. 2. Pulmonary edema. 3. Small pericardial effusion. 4. Elevated troponin. 5. Status post pacemaker placement. 6. Aspiration. 7. Acute kidney injury, improved. 8. Hypertension. RECOMMENDATIONS: The patient's blood pressure remains elevated. We will increase carvedilol. Monitor creatinine closely as the patient has been started on diuretics. Strict I's and O's as well as daily weights. The patient's elevated troponin is likely secondary to type-2 myocardial infarction in the setting of yaurk-jj-qbzyqde diastolic heart failure. It is not consistent with acute coronary syndrome. Given her comorbidities and frailty, recommend conservative medical therapy. Monitor the patient closely on telemetry. Thank you for this consult. We will continue to follow. Job#: [id number]
--- NOTE | 2018-03-20 13:06 | Progress Note ---
DATE: March 20, 2018 Still slightly lethargic. OBJECTIVE VITALS: Temperature is 98.3, pulse 77, blood pressure 172/88. CHEST: Clear with diminished breath sounds at the bases. CARDIAC: Normal heart tones. Faint systolic murmur. EXTREMITIES: Trace edema. LABS: Shows sodium of 150, potassium 4.4, serum CO2 27, creatinine 0.9, BUN 40. ASSESSMENT 1. Hyponatremia. 2. History of fluid overload/congestive heart failure. 3. Mild chronic kidney disease, stage 3. 4. Nephrosclerosis. PLAN: Add chlorthalidone. A.m. labs. Continue free water flushes. Job#: [id number] [place]
--- NOTE | 2018-03-20 13:26 | NUR ---
FAMILY SIGNED CHOICE FOR [facility] FAXED CLINICALS TO [phone]
--- NOTE | 2018-03-20 15:53 | NUR ---
WOUND CARE CONSULTATION - Follow Up Visit -Pt continues on Alternating ANICETO Air mattress - Edema noted to bilateral legs +1 pitting at dorsum of feet with erythema improving. Capillary refill less than 2 seconds. Impression: 1. Sacrum - Stage I - Pressure Ulcer- 1x1x0 - Healing 2. Right Foot 1st Met Head - DTI - 1x1x0 - stable 3. Skin tear to Right Forearm noted. 3x2x0.2 LABS: WBC: 9.1 HGB: 9 HCT: 29.3 GLU: 99 RECOMMENDATION: 1. Continue current daily wound care treatments. 2. Right Forearm - Skin Tear - Xeroform Single Layer and Cover with 4x4 gauze and light Kerlix Wrap Daily Addendum: 03/20/18 at 1604 by Heriberto Ross RN Amended: Links added.
[2018-03-20] MEDS: HYDRALAZINE HCL 20 MG/ML VIAL IV PRN (16:00)
[2018-03-20] MEDS: CHLORTHALIDONE 25 MG TAB PO SCH (17:47)
[2018-03-20] MEDS: CARVEDILOL 12.5 MG TAB PO SCH (17:47)
[2018-03-20] MEDS: ACETAMINOPHEN 325 MG TAB PO PRN (19:46)
--- NOTE | 2018-03-20 19:51 | NUR ---
PATIENT C/O ABDOMINAL PAIN AND NAUSEA. HEAD OF BED ELEVATED, NO RESPIRATORY DISTRESS OBSERVED. RESIDUAL ASSESSED ON TUBE FEEDING WITH 60ML NOTED. TUBE FEED ON HOLD FOR AN HOUR, MEDICATED WITH TYLENOL FOR ABDOMINAL PAIN. CALLED AND SPOKE WITH DR JARVIS REGARDING THE PATIENT'S NAUSEA AND THE NEED FOR ANTINAUSEA MEDICATION, ORDER RECEIVED FOR ZOFRAN 4MG IV EVERY 6HOURS NEEDED. WILL ADMINISTER THE ZOFRAN ONCE THE ORDER HAS BEEN VERIFIED BY THE PHARMACIST.
[2018-03-20] MEDS: ONDANSETRON HCL INJ 2 MG/ML VIAL IV PRN (20:06)
--- NOTE | 2018-03-20 21:21 | NUR ---
PATIENT VOICED RELIEF OF ABDOMINAL PAIN AND NAUSEA, REPOSITION FOR COMFORT. TUBE FEEDING RESIDUAL ASSESSED WITH 30ML OF GASTRIC CONTENT NOTED. TUBE FEEDING RESTARTED, WILL MONITOR THE PATIENT CLOSELY.
[2018-03-21] VITALS (10 sets, daily range): BP systolic 105–155; BP diastolic 49–81
--- NOTE | 2018-03-21 00:32 | NUR ---
NO DISTRESS OBSERVED, PATIENT DENIES PAIN. SHE'S ABLE TO REPOSITION HERSELF IN BED, SHE'S ENCOURAGED TO REPOSITION TO THE SIDE FOR COMFORT AND PRESSURE ULCER PREVENTION.
[2018-03-21] MEDS: ALBUTEROL/IPRATROPIUM 3 ML NEB NEB SCH ×6 (02:00→23:15)
--- NOTE | 2018-03-21 03:36 | NUR ---
NO RESPIRATORY DISTRESS OBSERVED, PATIENT DENIES ABDOMINAL PAIN AND NAUSEA. SHE HAS REPOSITION TO THE SIDE, HEAD OF BED ELEVATED, BED ALARM ON AND CALL LIGHT WITHIN EASY REACH.
[2018-03-21 05:09] LABS: CALCIUM 7.8 mg/dL (8.4-10.2); CREATININE, SERUM 0.95 mg/dL (0.57-1.11); MAGNESIUM 2.1 MG/DL (1.3-2.1); PHOSPHORUS 4.1 MG/DL (2.3-4.7)
[2018-03-21 06:29] LABS: BASOPHILS # (AUTO) 0.1 (0.0-0.1); BASOPHILS % 0.8 % (0.0-1.0); EOSINOPHILS # (AUTO) 0.1 (0.0-0.4); EOSINOPHILS % 1.6 % (0.0-6.0); HEMATOCRIT 30.5 % (34.2-44.1); HEMOGLOBIN 8.9 g/dL (12.0-16.0); LYMPHOCYTES % 11.5 % (18.0-39.1); MEAN CORPUSCULAR HEMOGLOBIN 30.3 pg (28-32); MEAN CORPUSCULAR HGB CONC 29.2 g/dL (31-35); MEAN CORPUSCULAR VOLUME 103.7 fL (81-99); MONOCYTES # (AUTO) 0.9 (0.2-0.8); MONOCYTES % 10.1 % (4.4-11.3); NEUTROPHILS # (AUTO) 6.3 (2.1-6.9); PLATELET COUNT 219 x10e3/uL (140-360); RED BLOOD COUNT 2.94 x10e6/uL (3.6-5.1); RED CELL DISTRIBUTION WIDTH 16.5 % (11.7-14.4)
[2018-03-21 07:47] LABS: BAND NEUTROPHILS % (MANUAL) 1 %; EOSINOPHILS % (MANUAL) 2 % (0-7); LYMPHOCYTES % (MANUAL) 12 % (19-48); MONOCYTES % (MANUAL) 17 % (3.4-9.0); NEUTROPHILS % (MANUAL) 68 % (40-74)
[2018-03-21 07:51] LABS: HYPOCHROMASIA SLIGHT; PLATELET ESTIMATE ADEQUATE; PLATELET MORPHOLOGY COMMENT NORMAL; RBC MORPHOLOGY COMMENT NORMAL
[2018-03-21] MEDS ORDERED: CHLORTHALIDONE 25 MG TAB PO SCH (09:00)
--- NOTE | 2018-03-21 11:49 | Progress Note ---
DATE: March 21, 2018 SUBJECTIVE: Remains slightly lethargic. Family has noticed some more swelling. Sodium is still 150. OBJECTIVE VITAL SIGNS: Temperature 98.1, pulse 70, blood pressure 145/57. CHEST: Faint crackles. EXTREMITIES: Trace edema. ABDOMEN: Benign. LABS: Sodium is 150, creatinine is 0.95. Serum CO2 of 25. a hypernatremia fluid overload PLAN: Increase the chlorthalidone, increase the free-water flushes to 400 four times a day. We will follow along. Job#: [id number] PUN MTDD
[2018-03-21] MEDS ORDERED: FUROSEMIDE INJ 10 MG/ML 2 ML VIAL IV NR (12:00)
[2018-03-21] MEDS: CHLORTHALIDONE 25 MG TAB PO SCH (12:13)
[2018-03-21] MEDS: BALSAM PERU/CASTOR OIL 60 GM OINT...G. TP SCH (12:14)
[2018-03-21] MEDS: HYDROCORTISONE 2.5% PR CRM 1 OZ TUBE PR SCH ×3 (12:14→21:00)
[2018-03-21] MEDS: FAMOTIDINE 20 MG/2 ML VIAL IV SCH (12:14)
[2018-03-21] MEDS: ONDANSETRON HCL INJ 2 MG/ML VIAL IV PRN (12:15)
[2018-03-21] MEDS: CARVEDILOL 12.5 MG TAB PO SCH ×2 (12:38→17:00)
--- NOTE | 2018-03-21 15:39 | Progress Note ---
DATE: March 21, 2018 CARDIOLOGY PROGRESS NOTE SUBJECTIVE: No major events overnight. Continues to feel better. Remains confused. OBJECTIVE VITAL SIGNS: Temperature 98.1, pulse 70, respiratory rate 18, blood pressure 145/57, satting 98% on 2 liters nasal cannula. GENERAL: Elderly woman, frail, no acute distress. CARDIOVASCULAR: Regular rate and rhythm. No murmurs, rubs, or gallops. Palpable carotid pulses. Palpable radial pulses. LUNGS: Clear to auscultation bilaterally. ABDOMEN: Soft, nontender. NEURO AND PSYCH: Alert and oriented x1, confused affect. CARDIOVASCULAR MEDICATIONS: Reviewed. LABORATORY DATA: Reviewed. TELEMETRY DATA: Reviewed, shows ventricularly paced rhythm. ASSESSMENT 1. Yshxz-hj-iebubdz diastolic heart failure. 2. Pulmonary edema. 3. Small pericardial effusion. 4. Elevated troponin. 5. Status post pacemaker placement. 6. Aspiration. 7. Acute kidney injury, improved. 8. Hypertension. RECOMMENDATIONS: Blood pressure is slightly elevated. We will continue to up titrate medicines as needed. Overall doing much better. Continue current cardiovascular medications. Thank you for this consult. We will continue to follow. Job#: [id number] PRASHANT
--- NOTE | 2018-03-21 20:00 | NUR ---
PATIENT KEPT CLEAN AND DRY, REPOSITION FOR COMFORT. HEAD OF BED ELEVATED, PATIENT TOLERATING TUBE FEEDING WITHOUT NAUSEA/VOMITING OF DIARRHEA. TAN-CARE PROVIDED, BED ALARM ON, CALL LIGHT WITHIN EASY REACH.
[2018-03-22] VITALS (12 sets, daily range): BP systolic 136–205; BP diastolic 57–78
--- NOTE | 2018-03-22 01:42 | NUR ---
PATIENT KEPT CLEAN AND DRY, REPOSITION FOR COMFORT. BED ALARM ON, CALL LIGHT WITHIN EASY REACH AND PATIENT DENIES PAIN.
[2018-03-22] MEDS: ALBUTEROL/IPRATROPIUM 3 ML NEB NEB SCH ×6 (02:45→22:50)
[2018-03-22 05:34] LABS: ANION GAP 10.6 mmol/L (8-16); BLOOD UREA NITROGEN 42 mg/dL (7-26); BUN/CREATININE RATIO 48 (6-25); CALCIUM 7.7 mg/dL (8.4-10.2); CARBON DIOXIDE 29 mmol/L (22-29); CHLORIDE 111 mmol/L (98-107); CREATININE, SERUM 0.87 mg/dL (0.57-1.11); EST GLOMERULAR FILTRATION RATE > 60 ML/MIN (60-); GLUCOSE 121 mg/dL (74-118); POTASSIUM 4.6 mmol/L (3.5-5.1); SODIUM 146 mmol/L (136-145)
--- NOTE | 2018-03-22 05:36 | NUR ---
PATIENT SOUNDLY ASLEEP, SHE'S EASY TO AROUSE. NO ACUTE DISTRESS OBSERVED, SHE DENIES PAIN. BED ALARM ON, CALL LIGHT WITHIN EASY REACH.
--- NOTE | 2018-03-22 05:47 | Diagnostic Imaging Report ---
CHEST SINGLE (PORTABLE), 03/22/2018 5:00 AM Technique: CHEST SINGLE (PORTABLE) Comparison: 03/13/2018 Clinical history: Fluid overload Findings: See Impression Impression: 1. Lines/Tubes: Stable left chest wall dual-lead pacer. 2. Stable enlarged cardiac silhouette. 3. Bilateral opacities, favor layering pleural effusions with associated atelectasis and/or edema. Signed by: Dr Annika Caban MD on 03/22/2018 5:44 AM
[2018-03-22] MEDS: CARVEDILOL 12.5 MG TAB PO SCH ×2 (09:29→18:10)
[2018-03-22] MEDS: CHLORTHALIDONE 25 MG TAB PO SCH (09:29)
[2018-03-22] MEDS: FAMOTIDINE 20 MG/2 ML VIAL IV SCH (09:29)
[2018-03-22] MEDS: BALSAM PERU/CASTOR OIL 60 GM OINT...G. TP SCH (09:55)
[2018-03-22] MEDS: HYDROCORTISONE 2.5% PR CRM 1 OZ TUBE PR SCH ×3 (09:55→20:48)
--- NOTE | 2018-03-22 16:15 | Progress Note ---
DATE: March 22, 2018 CARDIOLOGY PROGRESS NOTE SUBJECTIVE: No major events overnight. OBJECTIVE VITAL SIGNS: Temperature 98.5, pulse 76, respiratory rate 17, blood pressure 176/77, saturating 96% on 2 liters. GENERAL: Elderly, chronically ill appearing, frail. CARDIOVASCULAR: Regular rate and rhythm. No murmurs, rubs, or gallops. LUNGS: Clear to auscultation bilaterally. ABDOMEN: Soft, nontender, nondistended. NEURO AND PSYCH: Alert and oriented x 1. Confused affect. CARDIOVASCULAR MEDICATIONS: Reviewed. LABORATORY DATA: Reviewed. TELEMETRY DATA: Reviewed, shows V-paced rhythm. ASSESSMENT 1. Ixhku-sh-oxkzobw diastolic heart failure. 2. Pulmonary edema. 3. Small pericardial effusion. 4. Elevated troponin. 5. Status post pacemaker placement. 6. Aspiration. 7. Acute kidney injury, improved. 8. Hypertension. 9. Hypernatremia. RECOMMENDATIONS: Clinically stable. Doing okay from cardiovascular standpoint. We will adjust medicines to control blood pressure a little bit better. Thank you for this consult. We will continue to follow. Job#: [id number] LPA
[2018-03-22] MEDS: HYDRALAZINE HCL 20 MG/ML VIAL IV PRN (18:10)
--- NOTE | 2018-03-22 18:30 | NUR ---
Pt up to chair for 20 minutes, went through bags, placed back in bed per request. Partial bed bath given (pt refused shower today, refused full bed bath and linen change), wound care performed
[2018-03-22] MEDS: ONDANSETRON HCL INJ 2 MG/ML VIAL IV PRN (20:47)
--- NOTE | 2018-03-22 22:30 | NUR ---
Received the pt to the unit from room#198.[id number].assessment done.no resp.distress .getting peg tube feeding jevity 1.2@20ml/hr.Iv #22 to right fore arm.katz is in place.lower extremity edema noted.no pain voiced.oriented the pt to the unit.bed locked and in lowest position.phone and call light within reach.instructed to call for assistance as needed.
--- NOTE | 2018-03-22 22:30 | NUR ---
Report to M/S nurseMirian
--- NOTE | 2018-03-22 22:45 | NUR ---
Pt was transferred to [facility] via [facility] bed. Awake, NAD. Pt was handed over to Bedside RNAleida, in [facility]
[2018-03-23] MEDS: ALBUTEROL/IPRATROPIUM 3 ML NEB NEB SCH ×6 (02:40→23:25)
--- NOTE | 2018-03-23 03:32 | NUR ---
REPOSITIONED THE PT.TOLERATING THE DIET.RESIDUAL CHECKED.KEEP MONITORING THE PT.
[2018-03-23 05:35] VITALS: BP 139/64
[2018-03-23 06:25] LABS: ANION GAP 9.5 mmol/L (8-16); BLOOD UREA NITROGEN 38 mg/dL (7-26); BUN/CREATININE RATIO 46 (6-25); CALCIUM 8.2 mg/dL (8.4-10.2); CARBON DIOXIDE 30 mmol/L (22-29); CHLORIDE 108 mmol/L (98-107); CREATININE, SERUM 0.83 mg/dL (0.57-1.11); EST GLOMERULAR FILTRATION RATE > 60 ML/MIN (60-); GLUCOSE 108 mg/dL (74-118); POTASSIUM 4.5 mmol/L (3.5-5.1); SODIUM 143 mmol/L (136-145)
--- NOTE | 2018-03-23 07:00 | NUR ---
REPORT GIVEN TO THE ONCOMING RN.WALKING ROUNDS DONE.STABLE CONDITION.
[2018-03-23 08:11] VITALS: BP 140/63
[2018-03-23] MEDS: FAMOTIDINE 20 MG/2 ML VIAL IV SCH (09:00)
[2018-03-23] MEDS: CHLORTHALIDONE 25 MG TAB PO SCH (09:00)
[2018-03-23] MEDS: CARVEDILOL 12.5 MG TAB PO SCH ×2 (09:00→16:33)
[2018-03-23] MEDS: HYDROCORTISONE 2.5% PR CRM 1 OZ TUBE PR SCH ×3 (09:00→21:00)
[2018-03-23 11:01] VITALS: BP 140/63
[2018-03-23] MEDS: BALSAM PERU/CASTOR OIL 60 GM OINT...G. TP SCH (11:05)
[2018-03-23 12:13] VITALS: BP 151/69
--- NOTE | 2018-03-23 14:51 | NUR ---
FAXED CLINICALS TO UPDATE INFORMATION [phone].
--- NOTE | 2018-03-23 15:00 | NUR ---
Patient alert and responsive, OOB and ambulated with PT and sat on chair in the room, assisted back to bed, stoma care provided, split gauze applied, Jevity 1.2 running at ordered rate, call light within reach, family in the room, Linton care provided and draining c/y urine.
--- NOTE | 2018-03-23 15:43 | NUR ---
Nutrition Intervention Note RD Recommendation(s) for Physician: - Rec advance TF of Jevity 1.2 to goal rate of 50mL/hr (to provide 1440kcal, 67g protein, and 970mL fluids. meet 100% of est calorie and protein needs) - Rec free H2O flushes of 30mL q 4hr; additional flushes per MD discretion - Monitor for gastric residual. If gastric residual >250mL after 2nd gastric residual check, consider Reglan to promote motility. If >500mL, hold TF, obtain KUB and consult RD. - Monitor daily labs; replace low lytes - Obtain daily weight Plan of Care: RD following, monitoring for tolerance and adequacy, TF rec Nutrition reason for involvement: Follow up RD Assessment 03/23: Follow up. Pt continues on TF of Jevity 1.2, currently at 20 ml/hr and tolerating per RN. Pt discussed during am rounds, advised RN to advance TF to goal rate of 50 ml/hr. Per am rounds CHILD CARE NURSE performed BSE and recommended NPO at this time. Pt remains confused, family meeting with other providers at time of visit. Chart reviewed. Will continue to monitor. 03/19 - Chart reviewed. Pt is s/p PEG placement. TF started via PEG this afternoon. Visited pt in the room. Per son, pt remains confused and restless. No nausea or vomiting noted. Son has some questions regarding pts swallow study; speech evaluation has been ordered. Communicated TF goal to RN Sonia. Monitor for gastric residual. If gastric residual >250mL after 2nd gastric residual check, consider Reglan to promote motility. If >500mL, hold TF, obtain KUB and consult RD. Will continue to monitor and follow. 03/16 Chart reviewed. Pt is s/p extubation and on room air. Per RN, pt has failed swallow study. Possible PEG placement. Pt remains confused and sitter presents on bedside. TF was held as pt pulled out her NGT. RD will communicate TF recommendation to RN when feeding is feasible. Will continue to monitor and follow. 03/11 Chart reviewed. 87yo F, who is admitted for worsening SOB. Pt remains intubated and on vent. Propofol was stopped. No pressor meds. K was repleted. Currently on IV Lasix. RD consulted for TF recommendation. Visited pt in the room. Vital HP was started at 20mL/hr. No family present on bedside to provide hx. Communicated TF rec with MARK Garvin. Will continue to monitor and follow. Principal Problems/Diagnoses: 1. Uqaoj-qi-kuzwnzm diastolic heart failure exacerbation. 2. Small pericardial effusion. 3. Pulmonary edema with large pleural effusion. 4. Elevated troponins. PMH: Chronic diastolic heart failure, pacemaker implantation, tobacco use, hypertension, hyperlipidemia, COPD GI: LBM 03/22 abdomen flat, soft, 5 episodes of liquid brown stool -03/19 (possibly due to large amount of water flushes from yesterday) Skin: sacral stage I, R foot DTI, R arm skin tear Labs: 03/23: Na 143, K 4.5, BUN 38, Piano Accompanist 0.83, Gluc 108, Ca 8.2 03/19 - BUN 46 H, Ca 8.2 L (03/11) K 3.4L, Creatinine 1.14 H, Glucose 67 L, Ca 8.0 L, vitamin B12 1060 H Meds: pepcid, zofran Ht: 63in Wt: 130.13lb 03/11, 110lb 03/16 (inaccurate weight on admission?), 116.19lb 03/19 BMI: 23.1kg/m2 IBW: 115lb Malnutrition Evaluation (03/23/17) The patient does not meet criteria for a specified degree of malnutrition at this time. Will re-evaluate at follow-up as appropriate. Nutrition Prescription (Diet Order): Tube feeding with Jevity 1.2 @ 20 ml/hr Estimated Nutritional Needs: Calories: 1250 - 1500kcal (25-30kcal/kg/d) Weight used : Actual BW 50kg Protein : 50-75g (1-1.5g/kg/d) Weight used: Actual BW 50kg Diet Adequacy: Not meeting calorie needs, Not meeting protein needs Diet Education Needs Assessment: Diet education indicated, but patient not appropriate for education at this time. Nutrition Care Level: mod Nutrition Diagnosis: Inadequate oral intake related to current medical status as evidenced by pt requiring TF as main source of nutrients. Goal: Patient will meet 75-100% of estimated needs by follow up Progress: progressing Interventions: Composition, Rate, Route Monitoring/Evaluation: Total energy intake, Total protein intake, Formula, Weight change Signed: Courtney Simms RD, LD, CNSC
[2018-03-23 15:58] VITALS: BP 154/66
[2018-03-23 20:00] VITALS: BP 148/68
--- NOTE | 2018-03-23 20:00 | NUR ---
INITIAL ASSESSMENT COMPLETE, PT IN BED, TUBE FEEDING RUNNING TO PEG TUBE TO LEFT ABD WALL, CDI, NO LEAKAGE, NO RESIDUAL NOTED AT THIS TIME, O2 2L NC ON PT, HEEL PROTECTORS ON, SOCKS ON, EDEMA TO LOWER EXTREMITIES NOTED, DRESSING TO COCCYX AREA INTACT AND CLEAN, [place] DRAINING URINE, CALL LIGHT IN REACH, Q2 TURN, PT CAN ASSIST, NO OTHER NEEDS, NO DISTRESS NOTED.
[2018-03-24] VITALS (8 sets, daily range): BP systolic 115–192; BP diastolic 55–77
[2018-03-24] MEDS: ALBUTEROL/IPRATROPIUM 3 ML NEB NEB SCH ×6 (00:10→19:35)
--- NOTE | 2018-03-24 05:34 | NUR ---
pt in bed, repositioned, tube feeding tubing and bottle changed, pt c/o indigestion, head of bed elevated to 45 degree angle up from 30 degrees, no distress noted, call light in reach
--- NOTE | 2018-03-24 07:33 | NUR ---
pt resting in bed, no c/o pain or s/s distress. will continue to monitor.
[2018-03-24] MEDS ORDERED: PANTOPRAZOLE 40 MG 10ML VIAL IV STA (09:17)
[2018-03-24] MEDS: FAMOTIDINE 20 MG/2 ML VIAL IV SCH (10:37)
[2018-03-24] MEDS: CHLORTHALIDONE 25 MG TAB PO SCH (10:38)
[2018-03-24] MEDS: BALSAM PERU/CASTOR OIL 60 GM OINT...G. TP SCH (10:38)
[2018-03-24] MEDS: HYDROCORTISONE 2.5% PR CRM 1 OZ TUBE PR SCH ×3 (10:38→20:41)
[2018-03-24] MEDS: CARVEDILOL 12.5 MG TAB PO SCH ×2 (10:38→17:53)
--- NOTE | 2018-03-24 10:52 | NUR ---
dr julio rounded, wants feeding increased towards goal. ed per report pt c/o not tolerating. per pt, she feels 'indigestion'. dr simons ordered protonix dose. feeding residual currently 150 at rate 20ml/hr. increased to 30ml/hr per md, will continue to monitor.
[2018-03-24] MEDS: AMLODIPINE BESYLATE 5 MG TAB PO SCH (13:37)
[2018-03-24] MEDS: HYDRALAZINE HCL 20 MG/ML VIAL IV PRN ×2 (13:37→18:08)
--- NOTE | 2018-03-24 15:17 | NUR ---
PT APPROVED TO GO TO [address], [facility] [id number] PHONE [phone]. FAMILY IS TO GO FILL OUT PAPERWORK AND ROOM ASSIGNMENT WILL BE GIVEN IN MORNING FOR DISCHARGE TOMORROW. EDUCATED FAMILY ABOUT IMM SIGNED FILED IN CHART AND LEFT COPY AT BEDSIDE.
--- NOTE | 2018-03-24 19:15 | NUR ---
Received patient awake on bed, on tube feeding running at 30cc/hr, katz catheter in place. Call light within east=y reached, advised to call for assistance when needed. patient refused SCD and black boots on. Bed in low position and locked, bed alarm on, will continue to monitor
[2018-03-25] VITALS: BP 122/59
[2018-03-25 04:00] VITALS: BP 148/67
[2018-03-25] MEDS: ALBUTEROL/IPRATROPIUM 3 ML NEB NEB SCH ×4 (04:10→15:00)
[2018-03-25 07:56] VITALS: BP 145/63
[2018-03-25 08:00] VITALS: BP 145/63
[2018-03-25] MEDS: CHLORTHALIDONE 25 MG TAB PO SCH (08:19)
[2018-03-25] MEDS: BALSAM PERU/CASTOR OIL 60 GM OINT...G. TP SCH (08:19)
[2018-03-25] MEDS: CARVEDILOL 12.5 MG TAB PO SCH (08:19)
[2018-03-25] MEDS: AMLODIPINE BESYLATE 5 MG TAB PO SCH (08:19)
[2018-03-25] MEDS: HYDROCORTISONE 2.5% PR CRM 1 OZ TUBE PR SCH (08:19)
[2018-03-25] MEDS: FAMOTIDINE 20 MG/2 ML VIAL IV SCH (08:19)
--- NOTE | 2018-03-25 09:55 | Progress Note ---
DATE: March 25, 2018 Much more lucid. Sodium has been in the normal range. She is on chlorthalidone. She still has some trouble breathing. PHYSICAL EXAMINATION GENERAL: In no distress as such. VITAL SIGNS: Temperature 96.4, pulse 71, blood pressure 145/63. CHEST: Scattered faint crackles at the bases. EXTREMITIES: Trace ankle edema. NEURO: Appears to be more alert and appropriate. ASSESSMENT 1. Suspect mild chronic kidney disease, stage 3. 2. Hypernatremia with loop diuretics is now improved. 3. Alkalosis from the diuretics. 4. Underlying fluid overload. 5. Satisfactory chemistries. PLAN: Restart Lasix p.o. Monitor sodium level especially. Will follow along. Keep salt and water restricted. Job#: [id number]
[2018-03-25 12:00] VITALS: BP 119/58
--- NOTE | 2018-03-25 12:11 | NUR ---
RESIDUAL RECHECKED FROM THIS MORNING WITH RATE OF 35CC.HR. MORE THAN 65CC . SLOWED FEEDING DOWN TO 30. WILL REASSESS. PT IS SITTING UP IN SEMI FOWLERS POSITION FOR ASPIRATION PRECAUTIONS FAMILY AT BEDSIDE WILL CONTINUE TO CARE
--- NOTE | 2018-03-25 13:50 | NUR ---
IV DC PRESSURE DRESSING APPLIED AT THIS TIME
--- NOTE | 2018-03-25 14:37 | NUR ---
PAGED MD FERNANDO FOR ORDERS ON DC. AND CALLAHAN REMOVAL , AWAITING FOR CALL BACK
--- NOTE | 2018-03-25 14:54 | NUR ---
ORDERS TO DC GIVEN BY MD KASSIE DONALD STATES PT WILL GO WITH [facility] AGARWAL TO SNF
--- NOTE | 2018-03-25 15:08 | NUR ---
CALLED REPORT TO BOOM AMES AT [facility].
[2018-03-25 16:00] VITALS: BP 139/62
--- NOTE | 2018-03-25 17:04 | Progress Note ---
DATE: March 25, 2018 CARDIOLOGY PROGRESS NOTE SUBJECTIVE: Patient feels better today, improved mentation status. No chest pain or shortness of breath. OBJECTIVE VITAL SIGNS: Temperature is 96.2. Heart rate is 67. Respirations are 18. Blood pressure is 119/58. Oxygen saturation is 95% on 2 liters nasal cannula. GENERAL: She is an elderly woman, seated at bedside commode, in no apparent distress. CARDIOVASCULAR: Regular rate and rhythm. LUNGS: Clear to auscultation. ABDOMEN: Soft, nontender, nondistended. EXTREMITIES: No edema. CARDIOVASCULAR MEDICATIONS: Reviewed. LABORATORY DATA: Reviewed. IMPRESSION 1. Avrbw-dl-achiryc diastolic heart failure. 2. Minimally elevated troponin. 3. Status post pacemaker placement. 4. Aspiration. 5. Acute kidney injury, improved. 6. Hypertension. 7. Hypernatremia, improved. RECOMMENDATIONS: The patient's blood pressure is better controlled on low-dose amlodipine. Avoid nephrotoxic agents at this point in time. Otherwise, continue current cardiovascular medications. Job#: [id number]
--- NOTE | 2018-03-25 17:33 | NUR ---
PT OFF UNIT VIA AMBULANCE TO [facility] AT THIS TIME
[2018-03-25] MEDS ORDERED: FUROSEMIDE 40 MG TAB PO SCH (18:00)
== END 2018-03-25 17:28 | DRG 208 ==
LOC: ER 15:47 → ERHOLD 21:29 → ICU 22:27 → IMCU 03-14 22:12 → MED/SURG 03-22 22:30
PROVIDERS: ADMIT Internal Medicine; ATTEND Internal Medicine
PROC: 5A1945Z Respiratory Ventilation, 24-96 Consecutive Hours (ICD-10-PCS; principal; 2018-03-09)
PROC: 0BH17EZ Insertion of Endotracheal Airway into Trachea, Via Natural or Artificial Opening (ICD-10-PCS; 2018-03-09)
PROC: 0DH63UZ Insertion of Feeding Device into Stomach, Percutaneous Approach (ICD-10-PCS; 2018-03-18)
DX: J96.01 Acute respiratory failure with hypoxia (principal); I50.33 Acute on chronic diastolic (congestive) heart failure; N17.0 Acute kidney failure with tubular necrosis; I21.A1 Myocardial infarction type 2; J44.1 Chronic obstructive pulmonary disease with (acute) exacerbation; K50.90 Crohn's disease, unspecified, without complications; E87.0 Hyperosmolality and hypernatremia; I13.0 Hypertensive heart and chronic kidney disease with heart failure and stage 1 through stage 4 chronic kidney disease, or unspecified chronic kidney disease; I31.3 Pericardial effusion (noninflammatory); E87.1 Hypo-osmolality and hyponatremia; R13.12 Dysphagia, oropharyngeal phase; E87.8 Other disorders of electrolyte and fluid balance, not elsewhere classified; E87.6 Hypokalemia; R41.0 Disorientation, unspecified; E86.0 Dehydration; N18.3 Chronic kidney disease, stage 3 (moderate); E78.5 Hyperlipidemia, unspecified; I49.5 Sick sinus syndrome; E53.8 Deficiency of other specified B group vitamins; D64.9 Anemia, unspecified; F17.210 Nicotine dependence, cigarettes, uncomplicated; Z95.0 Presence of cardiac pacemaker; Z96.653 Presence of artificial knee joint, bilateral; Z88.1 Allergy status to other antibiotic agents; Z88.5 Allergy status to narcotic agent; Z88.0 Allergy status to penicillin; Z88.2 Allergy status to sulfonamides; Z88.8 Allergy status to other drugs, medicaments and biological substances; Z91.048 Other nonmedicinal substance allergy status
CPT/HCPCS: 31500; 36415; 36600; 43246; 51700; 70450; 71045; 74230; 80048; 80053; 81001; 82550; 82553; 82607; 82805; 83605; 83735; 83880; 84100; 84443; 84484; 85025; 85379; 85610; 85730; 87040; 87086; 87400; 93005; 93306; 94002; 94003; 94640; 96361; 96366; 96374; 96376; 97139; 99285; J0330; J0360; J1650; J1940; J2405; J3370; J3475; J3480; J7050; J7070

== ENCOUNTER 2018-10-05 16:37 | Observation (INO) | payer MEDICARE ==
[~2018-10-05] VITALS: Ht 160 cm; Wt 46.3 kg
--- OUTSIDE RECORDS SUMMARY | 2018-10-05 16:41 | XMS REPORT | Continuity of Care Document ---
Author Author [employer] Address Unknown Phone Unavailable Care Team Providers Care Apartment Maintenance Supervisor Name Role Phone [facility] [employer] Unavailable Unavailable Problems Problem Status Onset Date Classification Date Reported Comments Source Dyspnea Active 12/12/2014 Problem 03/25/2018 [facility] Malaise and fatigue Active 12/12/2014 Problem 03/25/2018 [facility] Subtherapeutic anticoagulation Active 12/12/2014 Problem 03/25/2018 [facility] Weakness Active 12/12/2014 Problem 03/25/2018 [facility] Medications Medication Details Route Status Patient Instructions Ordering Provider Order Date Source Cyanocobalamin (Cyanocobalamin Injection) 1,000 Mcg/Ml Soln Daily Active Fernando 12/15/2014 [facility] Hydrochlorothiazide 25 Mg Tablet, 25 Mg Oral Mfs Active 12/15/2014 [facility] Vitamin B Complex (Balanced B-50) 1 Each Tablet.er, 1 Tab Oral Daily Active 12/15/2014 [facility] Warfarin Sodium (Coumadin) 4 Mg Tablet, 4 Mg Oral Daily Active 12/15/2014 [facility] Atenolol/Chlorthalidone (Atenolol-Chlorthal 50-25 Tb) 1 Each Tablet, 25 Mg Peg Tube Every Evening Active 01/14/2012 [facility] Budesonide (Entocort Ec) 3 Mg Capdr...er, Active 01/14/2012 [facility] Dexamethasone 4 Mg Tablet, Active 01/14/2012 [facility] Levocetirizine Dihydrochloride (Xyzal) 5 Mg Tablet, Active 01/14/2012 [facility] Levofloxacin 250 Mg Tablet, Active 01/14/2012 [facility] Atenolol 50 Mg Tablet Every Morning Active 25 mg po q pm [facility] Budesonide (Budesonide Ec) 3 Mg Capdr...er Daily Active [facility] Esomeprazole Magnesium (Nexium) 40 Mg Capsule. Daily Active [facility] Fenofibric Acid (Choline) (Trilipix) 135 Mg Capsule. Daily Active [facility] Fluticasone Propionate (Flovent Diskus) 50 Mcg Disk.w.dev Every Morning Active 2 PUFFS QAM / Q PM [facility] Furosemide 40 Mg Tablet Daily Active [facility] Hyoscyamine Sulfate (Levsin) 0.125 Mg Tablet Every 6 Hours as needed for Bowel Movement Active [facility] Lecithin 518 Mg Capsule Mfs Active [facility] Lisinopril (Prinivil) 10 Mg Tablet Daily Active [facility] Magnesium Oxide (Magnesium) 400 Mg Capsule Daily Active [facility] Minocycline Hcl 100 Mg Capsule Twice A Day Active [facility] Nifedipine (Nifediac Cc) 90 Mg Tablet.er Daily Active [facility] Potassium Chloride (K Dur*) 10 Meq Tabcr Daily Active [facility] Rezyst Daily Active [facility] Ubidecarenone (Coenzyme Q10) 400 Mg Capsule Daily Active [facility] Allergies, Adverse Reactions, Alerts Substance Category Reaction Severity Reaction type Status Date Reported Comments Source Penicillin Unknown Allergy to Substance Active 03/09/2018 [facility] Sulfa (Sulfonamide Antibiotics) Mild Allergy to Substance Active 03/09/2018 [facility] Iodine Unknown Allergy to Substance Active 03/09/2018 [facility] Codeine Unknown Allergy to Substance Active 03/09/2018 [facility] Doxycycline Mild Allergy to Substance Active 03/09/2018 [facility] Clindamycin Mild Allergy to Substance Active 03/09/2018 [facility] Immunizations No Data Provided for This Section Results Order Name Results Value Reference Range Date Interpretation Comments Source Serum or plasma sodium measurement (moles/volume) 143 136 - 145 03/23/2018 [facility] Serum or plasma potassium measurement (moles/volume) 4.5 3.5 - 5.1 03/23/2018 [facility] Serum or plasma chloride measurement (moles/volume) 108 98 - 107 03/23/2018 [facility] Serum or plasma carbon dioxide, total measurement (moles/volume) 30 22 - 29 03/23/2018 [facility] Serum or plasma anion gap 9.5 8 - 16 03/23/2018 [facility] Serum or plasma urea nitrogen measurement (mass/volume) 38 7 - 26 03/23/2018 [facility] Serum or plasma creatinine measurement (mass/volume) 0.83 0.57 - 1.11 03/23/2018 [facility] Serum or plasma urea nitrogen/creatinine mass ratio 46 6 - 25 03/23/2018 [facility] Estimated glomerular filtration rate (GFR) determination > 60 60 03/23/2018 [facility] Glucose measurement 108 74 - 118 03/23/2018 [facility] Serum or plasma calcium measurement (mass/volume) 8.2 8.4 - 10.2 03/23/2018 [facility] Blood leukocytes automated count (number/volume) 8.51 4.8 - 10.8 03/21/2018 [facility] Blood erythrocytes automated count (number/volume) 2.94 3.6 - 5.1 03/21/2018 [facility] Blood hemoglobin measurement (moles/volume) 8.9 12.0 - 16.0 03/21/2018 [facility] Automated blood hematocrit (volume fraction) 30.5 34.2 - 44.1 03/21/2018 [facility] Automated erythrocyte mean corpuscular volume 103.7 81 - 99 03/21/2018 [facility] Automated erythrocyte mean corpuscular hemoglobin (mass per erythrocyte) 30.3 28 - 32 03/21/2018 [facility] Automated erythrocyte mean corpuscular hemoglobin concentration measurement (mass/volume) 29.2 31 - 35 03/21/2018 [facility] RDW BldCo-Rto 16.5 11.7 - 14.4 03/21/2018 [facility] Automated blood platelet count (count/volume) 219 140 - 360 03/21/2018 [facility] Automated blood segmented neutrophil count as percentage of total leukocytes 74.0 38.7 - 80.0 03/21/2018 [facility] Automated blood lymphocyte count as percentage ot total leukocytes 11.5 18.0 - 39.1 03/21/2018 [facility] Automated blood monocyte count as percentage of total leukocytes 10.1 4.4 - 11.3 03/21/2018 [facility] Automated blood eosinophil count as percentage of total leukocytes 1.6 0.0 - 6.0 03/21/2018 [facility] Automated blood basophil count as percentage of total leukocytes 0.8 0.0 - 1.0 03/21/2018 [facility] IM GRANULOCYTES % 2.0 0.0 - 1.0 03/21/2018 [facility] Automated blood neutrophil count 6.3 2.1 - 6.9 03/21/2018 [facility] Blood lymphocytes count (number/volume) 1.0 1.0 - 3.2 03/21/2018 [facility] Blood monocytes automated count (number/volume) 0.9 0.2 - 0.8 03/21/2018 [facility] Automated blood eosinophil count 0.1 0.0 - 0.4 03/21/2018 [facility] Automated blood basophil count (count/volume) 0.1 0.0 - 0.1 03/21/2018 [facility] Absolute Immature Granulocyte (auto 0.17 0 - 0.1 03/21/2018 [facility] Differential Total Cells Counted 100 03/21/2018 [facility] Manual blood neutrophils/100 leukocytes 68 40 - 74 03/21/2018 [facility] Manual blood band neutrophils form/100 leukocytes 1 03/21/2018 [facility] Manual blood lymphocytes/100 leukocytes 12 19 - 48 03/21/2018 [facility] Manual blood monocytes/100 leukocytes 17 3.4 - 9.0 03/21/2018 [facility] Manual blood eosinophil count as percentage of total leukocytes 2 0 - 7 03/21/2018 [facility] Blood platelets count by estimate (number/volume) ADEQUATE 03/21/2018 [facility] Platelet morphology NORMAL 03/21/2018 [facility] Blood hypochromia detection by light microscopy SLIGHT 03/21/2018 [facility] RBC morphology NORMAL 03/21/2018 [facility] Phosphorus measurement 4.1 2.3 - 4.7 03/21/2018 [facility] Serum or plasma magnesium measurement (mass/volume) 2.1 1.3 - 2.1 03/21/2018 [facility] Blood lymphocytes variant count (number/volume) 2 03/19/2018 [facility] Blood anisocytosis detection by light microscopy SLIGHT 03/19/2018 [facility] Prothrombin time (PT) in platelet poor plasma by coagulation assay 16.0 11.9 - 14.5 03/18/2018 [facility] INR in Platelet poor plasma by Coagulation assay 1.18 03/18/2018 [facility] Manual basophil percentage 1 0 - 1.5 03/17/2018 [facility] Manual blood myelocytes/100 leukocytes 2 0 - 0 03/17/2018 [facility] Blood nucleated erythrocytes count (number/volume) 3 03/17/2018 [facility] Serum or plasma total bilirubin measurement (mass/volume) 0.8 0.2 - 1.2 03/17/2018 [facility] Aspartate Amino Transf (AST/SGOT) 33 5 - 34 03/17/2018 [facility] Serum or plasma alanine aminotransferase measurement (enzymatic activity/volume) 27 0 - 55 03/17/2018 [facility] Serum or plasma protein measurement (mass/volume) 6.0 6.5 - 8.1 03/17/2018 [facility] Serum or plasma albumin measurement (mass/volume) 2.0 3.5 - 5.0 03/17/2018 [facility] Plasma globulin measurement (mass/volume) 4.0 2.3 - 3.5 03/17/2018 [facility] Serum or plasma albumin/globulin mass ratio 0.5 0.8 - 2.0 03/17/2018 [facility] Serum or plasma alkaline phosphatase measurement (enzymatic activity/volume) 91 40 - 150 03/17/2018 [facility] BNP Bld-nc 2261.2 0 - 100 03/17/2018 [facility] Arterial blood pH measurement 7.44 7.31 - 7.41 03/13/2018 [facility] pCO2 BldA 42 41 - 51 03/13/2018 [facility] pCO2 BldA 124 80 - 105 03/13/2018 [facility] Arterial blood bicarbonate measurement (moles/volume) 29 23 - 28 03/13/2018 [facility] Arterial blood base excess by calculation 5.0 -2 - 3 - 2 03/13/2018 [facility] Arterial blood oxygen saturation measurement 99.0 95 - 98 03/13/2018 [facility] FiO2 45 03/13/2018 [facility] Blood cobalamin (vitamin B12) measurement (mass/volume) 1060 213 - 816 03/11/2018 [facility] Serum or plasma thyrotropin measurement by detection limit <=0.005 miu/l (units/volume) 1.146 0.350 - 4.940 03/11/2018 [facility] Serum or plasma creatine kinase measurement (enzymatic activity/volume) 83 29 - 168 03/10/2018 [facility] Serum or plasma creatine kinase MB measurement (mass/volume) 2.20 0 - 5.0 03/10/2018 [facility] Troponin I measurement by highly sensitive enzyme immunoassay 0.370 0 - 0.300 03/10/2018 [facility] Activated partial thromboplastin time (aPTT) in platelet poor plasma bycoagulation assay 35.6 23.8 - 35.5 03/09/2018 [facility] Fibrin D-dimer DDU measurement in platelet poor plasma (mass/volume) 2.93 0.00 - 0.45 03/09/2018 [facility] Lactic Acid Level 17.1 4.5 - 19.8 03/09/2018 [facility] Blood culture NO GROWTH AFTER 5 DAYS, FINAL REPORT 03/09/2018 [facility] Urine color determination YELLOW YELLOW 03/09/2018 [facility] Urine clarity CLEAR CLEAR 03/09/2018 [facility] Specific gravity of Urine by Test strip 1.025 1.010 - 1.025 03/09/2018 [facility] Urine pH measurement by automated test strip 6 5 - 7 03/09/2018 [facility] Urine leukocyte esterase detection by dipstick NEGATIVE NEGATIVE 03/09/2018 [facility] Urine nitrite detection NEGATIVE NEGATIVE 03/09/2018 [facility] Urine protein measurement by test strip (mass/volume) 2+ NEGATIVE 03/09/2018 [facility] Urine glucose detection NEGATIVE NEGATIVE 03/09/2018 [facility] Urine ketones detection by automated test strip NEGATIVE NEGATIVE 03/09/2018 [facility] Urine urobilinogen measurement by test strip (mass/volume) 0.2 0.2 - 1 03/09/2018 [facility] Urine total bilirubin measurement (mass/volume) NEGATIVE NEGATIVE 03/09/2018 [facility] Urine erythrocytes detection TRACE NEGATIVE 03/09/2018 [facility] Automated urine sediment leukocyte count by microscopy (number/high power field) 6-10 0 - 5 03/09/2018 [facility] Erythrocytes detection in urine sediment by light microscopy 11-20 0 - 5 03/09/2018 [facility] Bacteria detection in urine sediment by light microscopy NONE NONE 03/09/2018 [facility] Epithelial cells detection in urine sediment by light microscopy MANY NONE 03/09/2018 [facility] Transitional cells detection in urine sediment by light microscopy MANY NONE 03/09/2018 [facility] Amorphous sediment detection in urine sediment by light microscopy MODERATE FEW 03/09/2018 [facility] Hyaline casts detection in urine sediment by light microscopy 2-5 0 - 1 03/09/2018 [facility] Influenza virus A and B antigen identification by immunofluorescence NEGATIVE NEGATIVE 03/09/2018 [facility] Pathology Reports No Data Provided for This Section Diagnostic Reports No Data Provided for This Section Consultation Notes No Data Provided for This Section Discharge Summaries No Data Provided for This Section History and Physicals No Data Provided for This Section Vital Signs No Data Provided for This Section Encounters Location Location Details Encounter Type Encounter Number Reason For Visit Attending Provider ADM Date DC Date Status Source Discharged Inpatient [id number] SYD FERNANDO MD 03/09/2018 03/25/2018 [facility] Procedures Procedure Code Date Perfomer Comments Source Computed tomography of brain without radiopaque contrast [id number] 03/19/2018 KASSIE [facility] Esophagogastroduodenoscopy (EGD) with placement of percutaneous endoscopic gastrostomy (PEG) [id number] 03/18/2018 SIMONA [facility] Assessment and Plan No Data Provided for This Section Plan of Care Plan of Care Date Source Discharge Date 03/25/18 5:28pm Disposition TRANS TO OTHER [facility] Prescriptions See Medication Section 03/25/2018 [facility] Social History Social History Date Source Social History Problem Response Recorded Date/Time Onset Date Status Hx Psychiatric Problems No 12/12/2014 8:00pm Not Applicable Not Applicable Hx Eating Disorder No 12/12/2014 8:00pm Not Applicable Not Applicable Hx Substance Use Disorder No 12/12/2014 8:00pm Not Applicable Not Applicable Hx Depression No 12/12/2014 8:00pm Not Applicable Not Applicable Hx Alcohol Use Yes 12/12/2014 8:00pm Not Applicable Not Applicable Hx Substance Use Treatment No 12/12/2014 8:00pm Not Applicable Not Applicable Hx Physical Abuse No 12/12/2014 8:00pm Not Applicable Not Applicable Smoking Status Start Date Stop Date Current every day smoker 03/25/2018 [facility] Family History No Data Provided for This Section Advance Directives Order Name Results Value Date Source Advance Directives Advance Directives Directive Response Recorded Date/Time Does the patient have an advance directive? Yes 03/11/18 2:44pm If yes, is advance directive on file with [facility]? Yes 03/11/18 2:44pm If not on file with [facility] will patient provide a copy? No 03/09/18 11:00pm Do you have a Directive to Physician? No 03/09/18 5:15pm Do you have a Medical Power of Manager Games? No 03/09/18 5:15pm Do you have an out of hospital Do Not Resuscitate Order? No 03/09/18 5:15pm Do you have any special needs we should be aware of? No 03/09/18 5:15pm Do you have a support person here with you today? Yes 03/09/18 5:15pm Did patient receive Notice of Privacy Practices? Yes 03/09/18 5:15pm Did patient receive patient rights and responsibilities? Yes 03/09/18 5:15pm 03/25/2018 [facility] Functional Status No Data Provided for This Section
[2018-10-05 17:20] LABS: BASOPHILS % 0.3 % (0.0-1.0); EOSINOPHILS % 0.4 % (0.0-6.0); LYMPHOCYTES # (AUTO) 1.4 (1.0-3.2); LYMPHOCYTES % 20.1 % (18.0-39.1); MEAN CORPUSCULAR HEMOGLOBIN 28.8 pg (28-32); MEAN CORPUSCULAR HGB CONC 31.6 g/dL (31-35); MEAN CORPUSCULAR VOLUME 91.2 fL (81-99); MONOCYTES # (AUTO) 0.9 (0.2-0.8); MONOCYTES % 12.9 % (4.4-11.3); NEUTROPHILS # (AUTO) 4.5 (2.1-6.9); NEUTROPHILS % 64.9 % (38.7-80.0); PLATELET COUNT 484 x10e3/uL (140-360); RED BLOOD COUNT 2.26 x10e6/uL (3.6-5.1); RED CELL DISTRIBUTION WIDTH 15.9 % (11.7-14.4)
[2018-10-05 17:22] LABS: BILIRUBIN,URINE NEGATIVE (NEGATIVE); CLARITY,URINE CLOUDY (CLEAR); COLOR,URINE YELLOW (YELLOW); KETONES,URINE NEGATIVE (NEGATIVE); LEUKOCYTE ESTERASE ,URINE SMALL (NEGATIVE); NITRITE,URINE NEGATIVE (NEGATIVE); PROTEIN,URINE DIPSTICK NEGATIVE (NEGATIVE); URINE UROBILINOGEN 0.2 mg/dL (0.2 - 1)
[2018-10-05 17:26] LABS: HEMATOCRIT 20.6 % (34.2-44.1); HEMOGLOBIN 6.5 g/dL (12.0-16.0)
[2018-10-05 17:35] LABS: BACTERIA,URINE FEW /HPF; EPITHELIAL CELLS,URINE FEW /LPF; RBC,URINE 0-5 /HPF (0-5); WBC,URINE (MAN) 0-5 /HPF (0-5)
--- NOTE | 2018-10-05 17:35 | NUR ---
DR. ALVES NOTIFIED AND AWARE OF CRITICAL LAB VALUE; HGB 6.5 AND HCT 20.6.
[2018-10-05 17:40] LABS: ALBUMIN 2.3 g/dL (3.5-5.0); ALBUMIN/GLOBULIN RATIO 0.6 (0.8-2.0); ANION GAP 13.5 mmol/L (8-16); CALCIUM 8.2 mg/dL (8.4-10.2); CREATININE, SERUM 1.34 mg/dL (0.57-1.11); POTASSIUM 3.5 mmol/L (3.5-5.1)
[2018-10-05] MEDS ORDERED: SODIUM CHLORIDE 0.9% 250ML 250 ML IV ONE (17:45)
[2018-10-05] MEDS ORDERED: DIPHENHYDRAMINE HCL INJ 50 MG/ML VIAL IV PRN (17:45)
[2018-10-05] MEDS ORDERED: ZOLPIDEM TARTRATE 5 MG TAB PO PRN (17:45)
[2018-10-05] MEDS ORDERED: FUROSEMIDE INJ 10 MG/ML 2 ML VIAL IV NR (18:00)
[2018-10-05] MEDS ORDERED: DIPHENHYDRAMINE HCL INJ 50 MG/ML VIAL IV ONE (18:00)
[2018-10-05] MEDS ORDERED: ACETAMINOPHEN 325 MG TAB PO ONE (18:15)
--- OUTSIDE RECORDS SUMMARY | 2018-10-05 18:38 | XMS REPORT | Continuity of Care Document ---
Author Author Voxie Address Unknown Phone Unavailable Care Team Providers Care Superintendent Greens Name Role Phone [facility] [place] Information [facility] Post Unavailable Unavailable Problems Problem Status Onset Date Classification Date Reported Comments Source Dyspnea Active 12/12/2014 Problem 03/25/2018 [facility] Malaise and fatigue Active 12/12/2014 Problem 03/25/2018 [facility] Subtherapeutic anticoagulation Active 12/12/2014 Problem 03/25/2018 [facility] Weakness Active 12/12/2014 Problem 03/25/2018 [facility] Medications Medication Details Route Status Patient Instructions Ordering Provider Order Date Source Cyanocobalamin (Cyanocobalamin Injection) 1,000 Mcg/Ml Soln Daily Active Fernando 12/15/2014 [facility] Hydrochlorothiazide 25 Mg Tablet, 25 Mg Oral Mfs Active 12/15/2014 [facility] Vitamin B Complex (Balanced B-50) 1 Each Tablet.er, 1 Tab Oral Daily Active 12/15/2014 [facility] Warfarin Sodium (Coumadin) 4 Mg Tablet, 4 Mg Oral Daily Active 12/15/2014 [facility] Atenolol/Chlorthalidone (Atenolol-Chlorthal 50-25 Tb) 1 Each Tablet, 25 Mg Peg Tube Every Evening Active 01/14/2012 [facility] Budesonide (Entocort Ec) 3 Mg Capdr...er, Active 01/14/2012 [facility] Dexamethasone 4 Mg Tablet, Active 01/14/2012 [facility] Levocetirizine Dihydrochloride (Xyzal) 5 Mg Tablet, Active 01/14/2012 [facility] Levofloxacin 250 Mg Tablet, Active 01/14/2012 [facility] Atenolol 50 Mg Tablet Every Morning Active 25 mg po q pm [facility] Budesonide (Budesonide Ec) 3 Mg Capdr...er Daily Active [facility] Esomeprazole Magnesium (Nexium) 40 Mg Capsule. Daily Active [facility] Fenofibric Acid (Choline) (Trilipix) 135 Mg Capsule. Daily Active [facility] Fluticasone Propionate (Flovent Diskus) 50 Mcg Disk.w.dev Every Morning Active 2 PUFFS QAM / Q PM [facility] Furosemide 40 Mg Tablet Daily Active [facility] Hyoscyamine Sulfate (Levsin) 0.125 Mg Tablet Every 6 Hours as needed for Bowel Movement Active [facility] Lecithin 518 Mg Capsule Mfs Active [facility] Lisinopril (Prinivil) 10 Mg Tablet Daily Active [facility] Magnesium Oxide (Magnesium) 400 Mg Capsule Daily Active [facility] Minocycline Hcl 100 Mg Capsule Twice A Day Active [facility] Nifedipine (Nifediac Cc) 90 Mg Tablet.er Daily Active [facility] Potassium Chloride (K Dur*) 10 Meq Tabcr Daily Active [facility] Rezyst Daily Active [facility] Ubidecarenone (Coenzyme Q10) 400 Mg Capsule Daily Active [facility] Allergies, Adverse Reactions, Alerts Substance Category Reaction Severity Reaction type Status Date Reported Comments Source Penicillin Unknown Allergy to Substance Active 03/09/2018 [facility] Sulfa (Sulfonamide Antibiotics) Mild Allergy to Substance Active 03/09/2018 [facility] Iodine Unknown Allergy to Substance Active 03/09/2018 [facility] Codeine Unknown Allergy to Substance Active 03/09/2018 [facility] Doxycycline Mild Allergy to Substance Active 03/09/2018 [facility] Clindamycin Mild Allergy to Substance Active 03/09/2018 [facility] Immunizations No Data Provided for This Section Results Order Name Results Value Reference Range Date Interpretation Comments Source Serum or plasma sodium measurement (moles/volume) 143 136 - 145 03/23/2018 [facility] Serum or plasma potassium measurement (moles/volume) 4.5 3.5 - 5.1 03/23/2018 [facility] Serum or plasma chloride measurement (moles/volume) 108 98 - 107 03/23/2018 [facility] Serum or plasma carbon dioxide, total measurement (moles/volume) 30 22 - 29 03/23/2018 [facility] Serum or plasma anion gap 9.5 8 - 16 03/23/2018 [facility] Serum or plasma urea nitrogen measurement (mass/volume) 38 7 - 26 03/23/2018 [facility] Serum or plasma creatinine measurement (mass/volume) 0.83 0.57 - 1.11 03/23/2018 [facility] Serum or plasma urea nitrogen/creatinine mass ratio 46 6 - 25 03/23/2018 [facility] Estimated glomerular filtration rate (GFR) determination > 60 60 03/23/2018 [facility] Glucose measurement 108 74 - 118 03/23/2018 [facility] Serum or plasma calcium measurement (mass/volume) 8.2 8.4 - 10.2 03/23/2018 [facility] Blood leukocytes automated count (number/volume) 8.51 4.8 - 10.8 03/21/2018 [facility] Blood erythrocytes automated count (number/volume) 2.94 3.6 - 5.1 03/21/2018 [facility] Blood hemoglobin measurement (moles/volume) 8.9 12.0 - 16.0 03/21/2018 [facility] Automated blood hematocrit (volume fraction) 30.5 34.2 - 44.1 03/21/2018 [facility] Automated erythrocyte mean corpuscular volume 103.7 81 - 99 03/21/2018 [facility] Automated erythrocyte mean corpuscular hemoglobin (mass per erythrocyte) 30.3 28 - 32 03/21/2018 [facility] Automated erythrocyte mean corpuscular hemoglobin concentration measurement (mass/volume) 29.2 31 - 35 03/21/2018 [facility] RDW BldCo-Rto 16.5 11.7 - 14.4 03/21/2018 [facility] Automated blood platelet count (count/volume) 219 140 - 360 03/21/2018 [facility] Automated blood segmented neutrophil count as percentage of total leukocytes 74.0 38.7 - 80.0 03/21/2018 [facility] Automated blood lymphocyte count as percentage ot total leukocytes 11.5 18.0 - 39.1 03/21/2018 [facility] Automated blood monocyte count as percentage of total leukocytes 10.1 4.4 - 11.3 03/21/2018 [facility] Automated blood eosinophil count as percentage of total leukocytes 1.6 0.0 - 6.0 03/21/2018 [facility] Automated blood basophil count as percentage of total leukocytes 0.8 0.0 - 1.0 03/21/2018 [facility] IM GRANULOCYTES % 2.0 0.0 - 1.0 03/21/2018 [facility] Automated blood neutrophil count 6.3 2.1 - 6.9 03/21/2018 [facility] Blood lymphocytes count (number/volume) 1.0 1.0 - 3.2 03/21/2018 [facility] Blood monocytes automated count (number/volume) 0.9 0.2 - 0.8 03/21/2018 [facility] Automated blood eosinophil count 0.1 0.0 - 0.4 03/21/2018 [facility] Automated blood basophil count (count/volume) 0.1 0.0 - 0.1 03/21/2018 [facility] Absolute Immature Granulocyte (auto 0.17 0 - 0.1 03/21/2018 [facility] Differential Total Cells Counted 100 03/21/2018 [facility] Manual blood neutrophils/100 leukocytes 68 40 - 74 03/21/2018 [facility] Manual blood band neutrophils form/100 leukocytes 1 03/21/2018 [facility] Manual blood lymphocytes/100 leukocytes 12 19 - 48 03/21/2018 [facility] Manual blood monocytes/100 leukocytes 17 3.4 - 9.0 03/21/2018 [facility] Manual blood eosinophil count as percentage of total leukocytes 2 0 - 7 03/21/2018 [facility] Blood platelets count by estimate (number/volume) ADEQUATE 03/21/2018 [facility] Platelet morphology NORMAL 03/21/2018 [facility] Blood hypochromia detection by light microscopy SLIGHT 03/21/2018 [facility] RBC morphology NORMAL 03/21/2018 [facility] Phosphorus measurement 4.1 2.3 - 4.7 03/21/2018 [facility] Serum or plasma magnesium measurement (mass/volume) 2.1 1.3 - 2.1 03/21/2018 [facility] Blood lymphocytes variant count (number/volume) 2 03/19/2018 [facility] Blood anisocytosis detection by light microscopy SLIGHT 03/19/2018 [facility] Prothrombin time (PT) in platelet poor plasma by coagulation assay 16.0 11.9 - 14.5 03/18/2018 [facility] INR in Platelet poor plasma by Coagulation assay 1.18 03/18/2018 [facility] Manual basophil percentage 1 0 - 1.5 03/17/2018 [facility] Manual blood myelocytes/100 leukocytes 2 0 - 0 03/17/2018 [facility] Blood nucleated erythrocytes count (number/volume) 3 03/17/2018 [facility] Serum or plasma total bilirubin measurement (mass/volume) 0.8 0.2 - 1.2 03/17/2018 [facility] Aspartate Amino Transf (AST/SGOT) 33 5 - 34 03/17/2018 [facility] Serum or plasma alanine aminotransferase measurement (enzymatic activity/volume) 27 0 - 55 03/17/2018 [facility] Serum or plasma protein measurement (mass/volume) 6.0 6.5 - 8.1 03/17/2018 [facility] Serum or plasma albumin measurement (mass/volume) 2.0 3.5 - 5.0 03/17/2018 [facility] Plasma globulin measurement (mass/volume) 4.0 2.3 - 3.5 03/17/2018 [facility] Serum or plasma albumin/globulin mass ratio 0.5 0.8 - 2.0 03/17/2018 [facility] Serum or plasma alkaline phosphatase measurement (enzymatic activity/volume) 91 40 - 150 03/17/2018 [facility] BNP Bld-nc 2261.2 0 - 100 03/17/2018 [facility] Arterial blood pH measurement 7.44 7.31 - 7.41 03/13/2018 [facility] pCO2 BldA 42 41 - 51 03/13/2018 [facility] pCO2 BldA 124 80 - 105 03/13/2018 [facility] Arterial blood bicarbonate measurement (moles/volume) 29 23 - 28 03/13/2018 [facility] Arterial blood base excess by calculation 5.0 -2 - 3 - 2 03/13/2018 [facility] Arterial blood oxygen saturation measurement 99.0 95 - 98 03/13/2018 [facility] FiO2 45 03/13/2018 [facility] Blood cobalamin (vitamin B12) measurement (mass/volume) 1060 213 - 816 03/11/2018 [facility] Serum or plasma thyrotropin measurement by detection limit <=0.005 miu/l (units/volume) 1.146 0.350 - 4.940 03/11/2018 [facility] Serum or plasma creatine kinase measurement (enzymatic activity/volume) 83 29 - 168 03/10/2018 [facility] Serum or plasma creatine kinase MB measurement (mass/volume) 2.20 0 - 5.0 03/10/2018 [facility] Troponin I measurement by highly sensitive enzyme immunoassay 0.370 0 - 0.300 03/10/2018 [facility] Activated partial thromboplastin time (aPTT) in platelet poor plasma bycoagulation assay 35.6 23.8 - 35.5 03/09/2018 [facility] Fibrin D-dimer DDU measurement in platelet poor plasma (mass/volume) 2.93 0.00 - 0.45 03/09/2018 [facility] Lactic Acid Level 17.1 4.5 - 19.8 03/09/2018 [facility] Blood culture NO GROWTH AFTER 5 DAYS, FINAL REPORT 03/09/2018 [facility] Urine color determination YELLOW YELLOW 03/09/2018 [facility] Urine clarity CLEAR CLEAR 03/09/2018 [facility] Specific gravity of Urine by Test strip 1.025 1.010 - 1.025 03/09/2018 [facility] Urine pH measurement by automated test strip 6 5 - 7 03/09/2018 [facility] Urine leukocyte esterase detection by dipstick NEGATIVE NEGATIVE 03/09/2018 [facility] Urine nitrite detection NEGATIVE NEGATIVE 03/09/2018 [facility] Urine protein measurement by test strip (mass/volume) 2+ NEGATIVE 03/09/2018 [facility] Urine glucose detection NEGATIVE NEGATIVE 03/09/2018 [facility] Urine ketones detection by automated test strip NEGATIVE NEGATIVE 03/09/2018 [facility] Urine urobilinogen measurement by test strip (mass/volume) 0.2 0.2 - 1 03/09/2018 [facility] Urine total bilirubin measurement (mass/volume) NEGATIVE NEGATIVE 03/09/2018 [facility] Urine erythrocytes detection TRACE NEGATIVE 03/09/2018 [facility] Automated urine sediment leukocyte count by microscopy (number/high power field) 6-10 0 - 5 03/09/2018 [facility] Erythrocytes detection in urine sediment by light microscopy 11-20 0 - 5 03/09/2018 [facility] Bacteria detection in urine sediment by light microscopy NONE NONE 03/09/2018 [facility] Epithelial cells detection in urine sediment by light microscopy MANY NONE 03/09/2018 [facility] Transitional cells detection in urine sediment by light microscopy MANY NONE 03/09/2018 [facility] Amorphous sediment detection in urine sediment by light microscopy MODERATE FEW 03/09/2018 [facility] Hyaline casts detection in urine sediment by light microscopy 2-5 0 - 1 03/09/2018 [facility] Influenza virus A and B antigen identification by immunofluorescence NEGATIVE NEGATIVE 03/09/2018 [facility] Pathology Reports No Data Provided for This [...] Date DC Date Status Source Discharged Inpatient [id number] SYD FERNANDO MD 03/09/2018 03/25/2018 [facility] Procedures Procedure Code Date Perfomer Comments Source Computed tomography of brain without radiopaque contrast [id number] 03/19/2018 KASSIE [facility] Esophagogastroduodenoscopy (EGD) with placement of percutaneous endoscopic gastrostomy (PEG) [id number] 03/18/2018 SIMONA [facility] Assessment and Plan No Data Provided for This Section Plan of Care Plan of Care Date Source Discharge Date 03/25/18 5:28pm [facility]position [facility] Prescriptions See Medication Section 03/25/2018 [facility] Social History Social History Date Source Social [...] Stop Date Current every day smoker 03/25/2018 [facility] Family History No Data Provided for This Section Advance Directives Order Name Results Value Date Source Advance Directives Advance Directives Directive Response Recorded Date/Time Does the patient have an advance directive? Yes 03/11/18 2:44pm If yes, is advance directive on file with [facility]? Yes 03/11/18 2:44pm If not on file with [facility] will patient provide a copy? No 03/09/18 11:00pm Do you have a Directive to Physician? No 03/09/18 5:15pm Do you have a Medical Power of Internal Medicine Physician? No 03/09/18 5:15pm Do you have an [...] rights and responsibilities? Yes 03/09/18 5:15pm 03/25/2018 [facility] Functional Status No Data Provided for This Section
--- NOTE | 2018-10-05 18:42 | Diagnostic Imaging Report ---
RIGHT HIP - 3 Images HISTORY: Fell, low hemoglobin, query fracture COMPARISON: None available. FINDINGS: Overlying artifacts limit evaluation. Left anterior oblique rotation. Bones: Some of the osseous structures are partially obscured by stool and overlying bowel gas. Diffusely decreased mineralization of the osseous structures further limits bone detail. No acute displaced fracture. No aggressive osseous lesion. Partially visualized left femoral fixation hardware. Joints: Mild scattered degenerative changes. Soft tissues: Multiple postsurgical changes. IMPRESSION: 1. No acute radiographic abnormality. 2. Given the osseous demineralization, if symptoms persist, consider a nondisplaced insufficiency fracture. In this setting, a nonemergent nuclear medicine bone scan may be helpful for further evaluation given the left femoral metallic hardware. Signed by: Dr. Luis Patterson D.O., M.M.M. on 10/05/2018 6:39 PM
--- NOTE | 2018-10-05 18:45 | Diagnostic Imaging Report ---
RIGHT KNEE - 3 Images HISTORY: Pain, fell, rule out fracture COMPARISON: None available. FINDINGS: Multiple overlying artifacts. Bones: Diffusely decreased mineralization of the osseous structures limits bone detail. Subtle cortical angular deformity at the proximal fibular metaphysis. No aggressive osseous lesion. Joints: Status post total knee arthroplasty. Soft tissues: A few nonspecific dystrophic soft tissue ossifications and vascular calcifications. IMPRESSION: 1. Questionable nondisplaced proximal fibular metaphyseal fracture, correlate for focal point tenderness. 2. Diffuse osseous demineralization. 3. No evidence of hardware loosening or failure. Signed by: Dr. Luis Patterson D.O., M.M.M. on 10/05/2018 6:42 PM
--- NOTE | 2018-10-05 19:58 | NUR ---
patient is a new admit that arrived via stretcher. patient is awake and oriented. patient has been transferred from the stretcher into the bed. bed is in the lowest position and call winters is within reach. will continue to monitor patient.
[2018-10-05 20:00] VITALS: BP 105/41
[2018-10-05] MEDS ORDERED: SODIUM CHLORIDE 0.9% 250ML 250 ML ONE (21:05)
--- NOTE | 2018-10-05 21:20 | NUR ---
first unit of blood is transfusing. no adverse reaction noted. will continue to monitor infusion process.
[2018-10-05 21:40] LABS: ANISOCYTOSIS SLIGHT; BLAST CELLS % MANUAL 1; HYPOCHROMASIA MODERATE; LYMPHOCYTES % (MANUAL) 18 % (19-48); MONOCYTES % (MANUAL) 10 % (3.4-9.0); MYELOCYTES % (MANUAL) 1 % (0-0); NEUTROPHILS % (MANUAL) 65 % (40-74); PLATELET ESTIMATE ADEQUATE; PLATELET MORPHOLOGY COMMENT FEW LARGE; RBC MORPHOLOGY COMMENT NORMAL
[2018-10-05] MEDS: MORPHINE SULFATE 2 MG/ML SYR 1ML IV PRN (22:08)
[2018-10-06] VITALS (8 sets, daily range): BP systolic 118–187; BP diastolic 59–84
--- NOTE | 2018-10-06 00:26 | NUR ---
first unit of blood is done transfusing. patient tolerated procedure well. no adverse reactions noted.
[2018-10-06] MEDS ORDERED: SODIUM CHLORIDE 0.9% 250ML 250 ML ONE (00:53)
--- NOTE | 2018-10-06 01:00 | NUR ---
second unit of blood is transfusing. no adverse reaction noted. will continue to monitor infusion process.
[2018-10-06] MEDS: MORPHINE SULFATE 2 MG/ML SYR 1ML IV PRN (02:45)
--- NOTE | 2018-10-06 04:20 | NUR ---
second unit of blood is done transfusing. no adverse reaction noted.
[2018-10-06] MEDS ORDERED: BUDESONIDE EC3 MG PO (06:58)
[2018-10-06] MEDS ORDERED: CARVEDILOL3.125 MG PO (06:58)
[2018-10-06] MEDS ORDERED: ACETAMINOPHEN325 M1 PO (06:58)
[2018-10-06] MEDS ORDERED: apixaban PO (06:58)
[2018-10-06] MEDS ORDERED: ASPIRIN81 MG PO (06:58)
[2018-10-06] MEDS ORDERED: XYZAL5 MG PO (06:58)
[2018-10-06] MEDS ORDERED: B-100 COMPLEX100 MG PO (06:58)
[2018-10-06] MEDS ORDERED: ULTRAM50 MG PO (06:58)
[2018-10-06] MEDS ORDERED: HYDRALAZINE HCL25 MG PO (06:58)
[2018-10-06] MEDS ORDERED: FUROSEMIDE40 MG PO (06:58)
[2018-10-06] MEDS ORDERED: CLONIDINE HCL0.1 MG PO (06:58)
[2018-10-06] MEDS ORDERED: ZOFRAN8 MG PO (06:58)
[2018-10-06] MEDS ORDERED: FENOFIBRATE145 MG PO (06:58)
--- NOTE | 2018-10-06 07:00 | NUR ---
Walking rounds done and report received. Patient is awake, alert x3 and able to make needs known. She was pulled up and repositioned for comfort. POC. Tele#14, AV paced at 68. She was instructed to call for assistance as needed and verbalized understanding.
[2018-10-06 07:50] LABS: BASOPHILS % 0.4 % (0.0-1.0); EOSINOPHILS # (AUTO) 0.1 (0.0-0.4); EOSINOPHILS % 1.3 % (0.0-6.0); HEMATOCRIT 28.8 % (34.2-44.1); HEMOGLOBIN 9.8 g/dL (12.0-16.0); LYMPHOCYTES # (AUTO) 2.1 (1.0-3.2); LYMPHOCYTES % 29.7 % (18.0-39.1); MEAN CORPUSCULAR HEMOGLOBIN 30.9 pg (28-32); MEAN CORPUSCULAR VOLUME 90.9 fL (81-99); MONOCYTES % 13.9 % (4.4-11.3); NEUTROPHILS # (AUTO) 3.7 (2.1-6.9); NEUTROPHILS % 53.3 % (38.7-80.0); PLATELET COUNT 419 x10e3/uL (140-360); RED BLOOD COUNT 3.17 x10e6/uL (3.6-5.1); RED CELL DISTRIBUTION WIDTH 14.8 % (11.7-14.4)
[2018-10-06] MEDS: HYDRALAZINE HCL 20 MG/ML VIAL IV PRN ×2 (08:05→20:17)
[2018-10-06] MEDS: PANTOPRAZOLE 40 MG 10ML VIAL IV SCH (08:08)
[2018-10-06 08:57] LABS: EOSINOPHILS % (MANUAL) 2 % (0-7); LYMPHOCYTES % (MANUAL) 23 % (19-48); MONOCYTES % (MANUAL) 13 % (3.4-9.0); NEUTROPHILS % (MANUAL) 55 % (40-74)
[2018-10-06 08:59] LABS: ANISOCYTOSIS SLIGHT; HELMET CELLS SLIGHT; OVALOCYTES FEW; POIKILOCYTOSIS SLIGHT; POLYCHROMASIA MODERATE
[2018-10-06 09:00] LABS: PLATELET ESTIMATE SLIGHTLY INCREASED; PLATELET MORPHOLOGY COMMENT NORMAL; RBC MORPHOLOGY COMMENT ABNORMAL
[2018-10-06] MEDS ORDERED: ACETAMINOPHEN 325 MG TAB PO PRN (10:00)
--- NOTE | 2018-10-06 10:03 | NUR ---
Dr. Wright making rounds. Consult for Dr. uGillory called in.
--- NOTE | 2018-10-06 10:25 | NUR ---
Dr. Guillory called back and will see patient later today.
--- NOTE | 2018-10-06 13:20 | NUR ---
Visit made by the Spiritual Care Department Pastoral Visitor, Gabriela Mosquera. PV provided pastoral presence, prayer, hospitality, and supportive listening. Pastoral Visitor informed pt/family of the scope of [employer] Department Chair Services and availability. BRITTANY SOSA Exhaust Tender Spiritual Care Department O: [phone] Pager: [phone] ([phone] number calling from)
[2018-10-06] MEDS ORDERED: CEREFOLIN TABL1 EACH PO (15:58)
[2018-10-06] MEDS: CARVEDILOL 3.125 MG TAB PO SCH (16:40)
--- NOTE | 2018-10-06 18:55 | NUR ---
RECEIVED REPORT FROM PREVIOUS NURSE. PATIENT IN BED. CALL LIGHT WITHIN REACH. PATIENT ASKED IF WE CAN ASK THE DOCTOR TO ORDER TRAMADOL 25 MG AT NIGHT TO HELP WITH PAIN AND SLEEP.
--- NOTE | 2018-10-06 19:00 | NUR ---
Walking rounds done and report given
--- NOTE | 2018-10-06 19:32 | NUR ---
CALLED AND TALKED TO DR. FERNANDO ABOUT PATIENT WANTING TRAMADOL 25 MG FOR PAIN AND SLEEP. DR FERNANDO APPROVED OF THE MEDICATION
[2018-10-06] MEDS: TRAMADOL HCL 50 MG TAB PO PRN (21:40)
[2018-10-07] VITALS (7 sets, daily range): BP systolic 121–186; BP diastolic 52–82
[2018-10-07] MEDS: HYDRALAZINE HCL 20 MG/ML VIAL IV PRN ×2 (01:28→05:46)
--- NOTE | 2018-10-07 02:23 | Consultation ---
DATE OF CONSULTATION: HISTORY OF PRESENT ILLNESS: This is an 88-year-old, who was admitted to the hospital apparently because of problem of anemia with a hemoglobin dropped as low as 6.5. The patient denies any abdominal pain, nausea, vomiting, or any kind of rectal bleeding along with this problem. She received blood transfusions and hemoglobin went up nicely to 9.8. MEDICAL PROBLEM: Significant for previous history of hip fracture, status post ORIF about 6 to 8 weeks ago. Also history of COPD, CHF, hypertension, reflux, hyperlipidemia, previous history of DVT. ALLERGIES: PENICILLIN. CURRENT MEDICATIONS: Including carvedilol, she is on Protonix, hydralazine, tramadol, Catapres, and Entocort. SOCIAL HISTORY: No alcohol use. FAMILY HISTORY: Noncontributory. REVIEW OF SYSTEMS: Denies any chest pain or shortness of breath. Denies any dysphagia or odynophagia. Denies any dysuria, hematuria, or any kind of syncopal episodes. PHYSICAL EXAMINATION: GENERAL: The patient is awake and alert, appears to be stable, not in acute distress at this point. VITAL SIGNS: Afebrile, currently with stable vital signs. HEAD, EYES, EARS, NOSE, AND THROAT: Normocephalic and atraumatic. Sclerae are anicteric. NECK: Supple. HEART: Regular. ABDOMEN: Soft. There is no distention at this point, it is nontender. EXTREMITIES: No cyanosis. No clubbing. LAB VALUES: On admission; BUN 49 and creatinine 1.34. Hemoglobin today is 9.8, hematocrit 28.8. IMPRESSION: 1. Anemia and there are no signs of active bleeding at this point. 2. History of congestive heart failure. 3. History of chronic obstructive pulmonary disease. RECOMMENDATIONS: Continue current care at this point, follow labs. The patient does not want to have an endoscopy evaluation at this point. Continue proton pump inhibitor. MD ALKA Holbrook/MODL /[id number] cc: Dr. Wright
[2018-10-07 05:08] LABS: BASOPHILS % 0.6 % (0.0-1.0); EOSINOPHILS # (AUTO) 0.1 (0.0-0.4); EOSINOPHILS % 1.5 % (0.0-6.0); HEMATOCRIT 30.2 % (34.2-44.1); HEMOGLOBIN 9.9 g/dL (12.0-16.0); LYMPHOCYTES # (AUTO) 2.1 (1.0-3.2); LYMPHOCYTES % 28.8 % (18.0-39.1); MEAN CORPUSCULAR HEMOGLOBIN 29.8 pg (28-32); MEAN CORPUSCULAR HGB CONC 32.8 g/dL (31-35); MONOCYTES # (AUTO) 1.1 (0.2-0.8); MONOCYTES % 14.6 % (4.4-11.3); NEUTROPHILS # (AUTO) 3.8 (2.1-6.9); NEUTROPHILS % 52.6 % (38.7-80.0); PLATELET COUNT 428 x10e3/uL (140-360); RED BLOOD COUNT 3.32 x10e6/uL (3.6-5.1); RED CELL DISTRIBUTION WIDTH 15.2 % (11.7-14.4)
[2018-10-07 05:26] LABS: ANION GAP 12.7 mmol/L (8-16); CALCIUM 8.1 mg/dL (8.4-10.2); CREATININE, SERUM 1.23 mg/dL (0.57-1.11); POTASSIUM 3.7 mmol/L (3.5-5.1)
--- NOTE | 2018-10-07 06:53 | NUR ---
Gave report to oncoming nurse. Call light within reach. Patient in bed.
[2018-10-07] MEDS: PANTOPRAZOLE 40 MG 10ML VIAL IV SCH (07:55)
[2018-10-07] MEDS: CLONIDINE HCL 0.1 MG TAB PO PRN ×2 (07:55→20:40)
[2018-10-07] MEDS: BUDESONIDE 3 MG CAPCR PO SCH (07:55)
[2018-10-07] MEDS: ACETAMINOPHEN 325 MG TAB PO PRN ×3 (07:56→22:08)
[2018-10-07] MEDS: CARVEDILOL 3.125 MG TAB PO SCH ×2 (07:56→16:12)
--- NOTE | 2018-10-07 17:50 | NUR ---
PATIENT TRANSFERRING TO ROOM 109. REPORT CALLED TO MARK BAKER.
--- NOTE | 2018-10-07 18:00 | NUR ---
received pt from OBS, pt is AOx4, no s/s of distress. pt has tele box # 16 leads are on and rhythm is AV paced. pt has on diaper and needs to be cleaned. blanchable redness to sacrum, encouraged pt to turn often to relieve pressure on back, pt verbalized understanding. pt has left AC 18g SL, IV is patent and asymptomatic. pt has no complaints of pain at this time.
[2018-10-07] MEDS: TRAMADOL HCL 50 MG TAB PO PRN (20:55)
[2018-10-08] VITALS: BP 158/70
--- NOTE | 2018-10-08 02:40 | Consultation ---
DATE OF CONSULTATION: 10/07/2018 Cardiology Consultation REQUESTING PHYSICIAN: Usman Wright MD REASON FOR CONSULTATION: Anticoagulation management. HISTORY OF PRESENT ILLNESS: This is an 88-year-old woman with paroxysmal atrial fibrillation, permanent pacemaker placement, chronic diastolic heart failure, hypertension, hyperlipidemia, and history of tobacco use, who [facility] due to anemia. The patient denies any cardiac complaints. She denies chest pain, shortness of breath, palpitations, edema, orthopnea, or PND. Cardiology is consulted for recommendations regarding anticoagulation. REVIEW OF SYSTEMS: A 12-point review of system was performed and is negative as per HPI. PAST MEDICAL HISTORY: 1. Recent DVT, diagnosed July 22, 2018 at [facility]. 2. Atrial fibrillation. 3. Hypertension/hyperlipidemia. 4. Chronic diastolic heart failure. 5. History of tobacco use. 6. COPD. PAST SURGICAL HISTORY: 1. Hip fracture, status post ORIF. 2. Permanent pacemaker. ALLERGIES: PLEASE SEE EMR. MEDICATIONS: Please see medication list. SOCIAL HISTORY: Notable for tobacco use. No alcohol. FAMILY HISTORY: Noncontributory to current illness. PHYSICAL EXAMINATION: VITAL SIGNS: Temperature 96.6 degrees, pulse 60, respiratory rate 16, blood pressure 165/76, oxygen saturation 97% on room air. GENERAL: An elderly frail woman, in no acute distress. Awake and alert. HEENT: Normocephalic, atraumatic. Pupils equal. No scleral icterus. NECK: Supple. No thyromegaly or cervical lymphadenopathy. No carotid bruits. LUNGS: Clear to auscultation bilaterally. No wheezes or crackles. CARDIOVASCULAR: Normal rate, regular rhythm. No murmur. Normal S1, S2. ABDOMEN: Soft, nontender. EXTREMITIES: No edema. NEUROLOGIC: Nonfocal exam. LABORATORY DATA: WBC 7.26, hemoglobin 9.9, hematocrit 30.2, platelets 428. Sodium 139, potassium 3.7, chloride 108, CO2 of 22, BUN 42, creatinine 1.23. EKG, electronic ventricular pacemaker. Telemetry, AV paced. IMPRESSION: 1. Acute anemia. 2. Recent left lower extremity deep venous thrombosis. 3. Atrial fibrillation. 4. Hypertension. 5. Hyperlipidemia. 6. Chronic diastolic heart failure. 7. Tobacco use. 8. Chronic obstructive pulmonary disease. RECOMMENDATIONS: Continue home cardiac medications. Blood pressure is quite labile. We will monitor for now. Anticoagulation is indicated for the patient's recent DVT. Repeat venous Doppler was reportedly without evidence of thrombus. At this time, we will evaluate the images. Monitor H and H closely. Stool occult blood is positive, however, the patient declined endoscopy by GI. We will discuss with the patient risks and benefits of continued anticoagulation, given need for blood transfusion. Thank you for this consult. We will continue to follow. Viji Cuevas MD ABS/MODL /[id number] MTDGo
[2018-10-08 04:00] VITALS: BP 163/72
[2018-10-08] MEDS: ACETAMINOPHEN 325 MG TAB PO PRN (05:37)
--- NOTE | 2018-10-08 07:24 | NUR ---
RECEIVED PATIENT AWAKE RESTING IN BED NO SIGNS OF DISTRESS. BED LOW, WHEELS LOCKED, SIDE RAILS X2. CALL LIGHT IN REACH WILL CONTINUE TO MONITOR.
[2018-10-08 08:02] VITALS: BP 186/81
[2018-10-08] MEDS: CARVEDILOL 3.125 MG TAB PO SCH ×2 (08:27→16:27)
[2018-10-08] MEDS: BUDESONIDE 3 MG CAPCR PO SCH (08:27)
[2018-10-08] MEDS: PANTOPRAZOLE 40 MG 10ML VIAL IV SCH (09:00)
[2018-10-08 09:22] VITALS: BP 186/81
--- NOTE | 2018-10-08 09:30 | NUR ---
PATIENT A/O X3, EVEN RESPIRATIONS ON RA. BOWEL SOUNDS ACTIVE. PATIENT VOIDS IN BEDPAN/DIAPER. TELEMETRY #16 PACED RHYTHM. LEFT AC 18 GAUGE SL. REDNESS NOTED ON SACRUM. GENERALIZED BRUISING THROUGHOUT SKIN. EDUCATED PATIENT TO CALL NURSE FOR ASSISTANCE. CALL LIGHT IN REACH. WILL CONTINUE TO MONITOR PATIENT.
[2018-10-08] MEDS ORDERED: PANTOPRAZOLE SOD 40 MG TABEC PO SCH (10:00)
[2018-10-08 10:07] LABS: BASOPHILS % 0.6 % (0.0-1.0); EOSINOPHILS # (AUTO) 0.1 (0.0-0.4); EOSINOPHILS % 1.7 % (0.0-6.0); HEMATOCRIT 30.6 % (34.2-44.1); HEMOGLOBIN 9.8 g/dL (12.0-16.0); LYMPHOCYTES # (AUTO) 1.5 (1.0-3.2); LYMPHOCYTES % 23.5 % (18.0-39.1); MEAN CORPUSCULAR HEMOGLOBIN 30.2 pg (28-32); MEAN CORPUSCULAR VOLUME 94.2 fL (81-99); MONOCYTES # (AUTO) 0.8 (0.2-0.8); MONOCYTES % 12.4 % (4.4-11.3); NEUTROPHILS # (AUTO) 3.9 (2.1-6.9); NEUTROPHILS % 60.3 % (38.7-80.0); PLATELET COUNT 413 x10e3/uL (140-360); RED BLOOD COUNT 3.25 x10e6/uL (3.6-5.1); RED CELL DISTRIBUTION WIDTH 15.5 % (11.7-14.4)
[2018-10-08 10:33] LABS: ANION GAP 12.9 mmol/L (8-16); CALCIUM 8.1 mg/dL (8.4-10.2); CREATININE, SERUM 1.03 mg/dL (0.57-1.11); POTASSIUM 3.9 mmol/L (3.5-5.1)
[2018-10-08 10:41] LABS: EOSINOPHILS % (MANUAL) 2 % (0-7); LYMPHOCYTES % (MANUAL) 23 % (19-48); MONOCYTES % (MANUAL) 10 % (3.4-9.0); NEUTROPHILS % (MANUAL) 65 % (40-74)
[2018-10-08 10:45] LABS: PLATELET MORPHOLOGY COMMENT NORMAL; RBC MORPHOLOGY COMMENT NORMAL
[2018-10-08 10:55] LABS: PLATELET ESTIMATE SLIGHTLY INCREASED
[2018-10-08 11:52] VITALS: BP 146/65
--- NOTE | 2018-10-08 11:53 | Progress Note ---
DATE: 10/08/2018 Cardiology Progress Note SUBJECTIVE: The patient denies chest pain or shortness of breath. OBJECTIVE: VITAL SIGNS: Temperature 96.6 degrees, pulse 65, respiratory rate 18, blood pressure 186/81, oxygen saturation 96% on room air. GENERAL: Frail elderly woman, no acute distress. Awake and alert. LUNGS: Clear to auscultation bilaterally. No wheezes or crackles. CARDIOVASCULAR: Normal rate, regular rhythm. No murmur. Normal S1, S2. ABDOMEN: Soft, nontender. EXTREMITIES: No edema. CARDIAC MEDICATIONS: Carvedilol 6.125 mg p.o. b.i.d., lisinopril 10 mg p.o. daily. LABORATORY DATA: WBC 6.51, hemoglobin 9.8, hematocrit 30.6, platelets 413. Sodium 136, potassium 3.9, chloride 104, CO2 of 23, BUN of 48, creatinine 1.03. TELEMETRY: AV paced. IMPRESSION: 1. Acute anemia. 2. Recent left lower extremity deep vein thrombosis. 3. Atrial fibrillation. 4. Hypertension. 5. Hyperlipidemia. 6. Chronic diastolic heart failure. 7. Tobacco use. 8. Chronic obstructive pulmonary disease. RECOMMENDATIONS: Continue home cardiac medications. The patient's venous Doppler was reviewed from [facility]. She was diagnosed with deep vein thrombosis in July of this year. Repeat venous Doppler was without evidence of DVT, however, study was technically difficult with poor image quality. H and H have been stable, but stool occult blood was noted to be positive. The patient declined endoscopic evaluation by GI. Risk and benefits of anticoagulation were discussed with the patient with decision to hold off on anticoagulation at this time. She understands she is at increased risk for extension of her venous thrombosis as well as pulmonary embolism and . Thank you for this consult. We will continue to follow. Viji Cuevas MD ABS/MODL /[id number]
--- NOTE | 2018-10-08 13:49 | NUR ---
FAXED CLINICALS TO [facility] TO INITIATE RETURN TO SNF, WAITING ON AUTH, RTF COMPLETED AND GIVEN TO NURSES STATION.
--- NOTE | 2018-10-08 15:10 | NUR ---
PT ACCEPTED TO [facility] ROOM UND[facility], LET PT AND SON KNOW, PT WILL BE TRANSPORTED BACK TODAY, SON IS GOING TO FACILITY TO MAKE PAYMENT
--- NOTE | 2018-10-08 15:30 | NUR ---
REPORT CALLED TO RADHA FLORES NURSE AT [facility].
[2018-10-08 16:19] VITALS: BP 174/77
--- NOTE | 2018-10-08 16:30 | NUR ---
REMOVED PATIENTS IV. CATHETER TIP INTACT ON REMOVAL AND PRESSURE DRESSING APPLIED.
--- NOTE | 2018-10-08 17:42 | NUR ---
PATIENT DISCHARGED FROM FACILITY. PATIENT GATHERED ALL PERSONAL BELONGINGS. PATIENT TRANSFERRED TO [facility] FOR INCURABLES. LEFT UNIT IN STRETCHER AND TRAVELING WITH EMS. NO SIGNS OF DISTRESS WHEN LEAVING FACILITY.
[2018-10-09] MEDS ORDERED: LISINOPRIL 10 MG TAB PO SCH (09:00)
== END 2018-10-08 17:43 ==
LOC: ER 16:37 → ERHOLD 17:45 → IMCU 19:58 → MED/SURG 10-07 18:00
PROVIDERS: ADMIT Internal Medicine; ATTEND Internal Medicine
DX: K92.2 Gastrointestinal hemorrhage, unspecified (principal); E78.5 Hyperlipidemia, unspecified; K50.90 Crohn's disease, unspecified, without complications; E53.8 Deficiency of other specified B group vitamins; Z95.0 Presence of cardiac pacemaker; D62 Acute posthemorrhagic anemia; Z86.718 Personal history of other venous thrombosis and embolism; Z79.01 Long term (current) use of anticoagulants; F17.200 Nicotine dependence, unspecified, uncomplicated; J44.9 Chronic obstructive pulmonary disease, unspecified; I11.0 Hypertensive heart disease with heart failure; I50.32 Chronic diastolic (congestive) heart failure; Z88.0 Allergy status to penicillin; Z53.29 Procedure and treatment not carried out because of patient's decision for other reasons
CPT/HCPCS: 36415 ×4; 73503; 73562; 80048 ×2; 80053; 81001; 82270; 85025 ×4; 86850; 86900; 86920; 87086; 93005; 93970; 99284; C9113 ×3; G0378 ×4; J0360 ×2; J1200; J2270 ×2; J7050 ×2; P9016 ×2; S0164

== ENCOUNTER 2018-10-19 04:36 | Inpatient (IN) | payer MEDICARE ==
[~2018-10-19] VITALS: Ht 160 cm; Wt 49.0 kg
[~2018-10-19 04:36] MED LIST changes: +ACETAMINOPHEN325 M1 PO; +ASPIRIN81 MG PO; +B-100 COMPLEX100 MG PO; +CARVEDILOL3.125 MG PO; +CEREFOLIN TABL1 EACH PO; +CLONIDINE HCL0.1 MG PO; +FENOFIBRATE145 MG PO; +HYDRALAZINE HCL25 MG PO; +ULTRAM50 MG PO; +XYZAL5 MG PO; +ZOFRAN8 MG PO; +apixaban PO
[2018-10-19] MEDS ORDERED: ALBUTEROL SULF 0.083% NEB SOLN 3 ML NEB NEB STA (04:38)
--- OUTSIDE RECORDS SUMMARY | 2018-10-19 04:39 | XMS REPORT | Continuity of Care Document ---
Author Author Kra[place] Address Unknown Phone Unavailable Care Team Providers Care Customer Support Advisor Name Role Phone [facility] [employer] Information Biba Unavailable Unavailable Problems Problem Status Onset Date Classification Date Reported Comments Source Dyspnea Active 12/12/2014 Problem 10/08/2018 [facility] Malaise and fatigue Active 12/12/2014 Problem 10/08/2018 [facility] Subtherapeutic anticoagulation Active 12/12/2014 Problem 10/08/2018 [facility] Weakness Active 12/12/2014 Problem 10/08/2018 [facility] Anemia Active Problem 10/08/2018 [facility] Medications Medication Details Route Status Patient Instructions Ordering Provider Order Date Source Apixaban , 5 Mg Oral Twice A Day Active 10/08/2018 [facility] Hydralazine Hcl 25 Mg Tab, 100 Mg Oral Every 8 Hours Active 10/08/2018 [facility] Nifedipine (Nifediac Cc) 90 Mg Tablet.er, 90 Mg Oral Daily Active 10/08/2018 [facility] Atenolol 50 Mg Tablet, 50 Mg Oral Every Morning Active 10/06/2018 [facility] Budesonide (Budesonide Ec) 3 Mg Capdr...er, 9 Mg Oral Daily Active 10/06/2018 [facility] Fenofibric Acid (Choline) (Trilipix) 135 Mg Capsule.dr, 135 Mg Oral Daily Active 10/06/2018 [facility] Fluticasone Propionate (Flovent Diskus) 50 Mcg Disk.w.dev, 2 Sprays Nasal Every Morning Active 10/06/2018 [facility] Furosemide 40 Mg Tablet, Oral Daily Active 10/06/2018 [facility] Hyoscyamine Sulfate (Levsin) 0.125 Mg Tablet, 0.125 Mg Sublingual Every 6 Hours as needed for Bowel Movement Active 10/06/2018 [facility] Lecithin 518 Mg Capsule, 400 Mg Oral Mfs Active 10/06/2018 [facility] Minocycline Hcl 100 Mg Capsule, Oral Twice A Day Active 10/06/2018 [facility] Ondansetron Hcl (Zofran) 8 Mg Tablet, 4 Mg Oral Every 6 Hours as needed for Nausea Active 10/06/2018 [facility] Rezyst , 250 Mg Oral Daily Active 10/06/2018 [facility] Vitamin B Complex 100 No.2 (B-100 Complex) 100 Mg Tablet.er, 1 Tab Oral Daily Active 10/06/2018 [facility] Cyanocobalamin (Cyanocobalamin Injection) 1,000 Mcg/Ml Soln Daily Active [place] 12/15/2014 [facility] Hydrochlorothiazide 25 Mg Tablet, 25 Mg Oral Mfs Active 12/15/2014 [facility] Vitamin B Complex (Balanced B-50) 1 Each Tablet.er, 1 Tab Oral Daily Active 12/15/2014 [facility] Warfarin Sodium (Coumadin) 4 Mg Tablet, 4 Mg Oral Daily Active 12/15/2014 [facility] Cyanocobalamin (Cyanocobalamin Injection) 1,000 Mcg/Ml Soln, 1000 Mcg Intramusc Daily Active [place] 12/15/2014 [facility] Atenolol/Chlorthalidone (Atenolol-Chlorthal 50-25 Tb) 1 Each Tablet, 25 Mg Peg Tube Every Evening Active 01/14/2012 [facility] Budesonide (Entocort Ec) 3 Mg Capdr...er, Active 01/14/2012 [facility] Dexamethasone 4 Mg Tablet, Active 01/14/2012 [facility] Levocetirizine Dihydrochloride (Xyzal) 5 Mg Tablet, Active 01/14/2012 [facility] Levofloxacin 250 Mg Tablet, Active 01/14/2012 [facility] Atenolol 50 Mg Tablet Every Morning Active 25 mg po q pm [facility] Budesonide (Budesonide Ec) 3 Mg Capdr...er Daily Active [facility] Esomeprazole Magnesium (Nexium) 40 [address]. Daily Active [facility] Fenofibric Acid (Choline) (Trilipix) 135 Mg Capsule. Daily Active [facility] Fluticasone Propionate (Flovent Diskus) 50 Mcg Disk.w.dev Every Morning Active 2 PUFFS QAM / Q PM [facility] Furosemide 40 Mg Tablet Daily Active [facility] Hyoscyamine Sulfate (Levsin) 0.125 Mg Tablet Every 6 Hours as needed for Bowel Movement Active [facility] Lecithin 518 Mg Capsule Mfs Active [facility] Lisinopril (Prinivil) 10 Mg Tablet Daily Active [facility] Magnesium Oxide (Magnesium) 400 Mg Capsule Daily Active [facility] Minocycline Hcl 100 Mg Capsule Twice A Day Active [facility] Nifedipine (Nifediac Cc) 90 Mg Tablet.er Daily Active [facility] Potassium Chloride (K Dur*) 10 Meq Tab[address] Daily Active [facility] Rezyst Daily Active [facility] Ubidecarenone (Coenzyme Q10) 400 Mg Capsule Daily Active [facility] Acetaminophen 325 Mg Tablet Every 6 Hours as needed for Pain Active [facility] Aspirin 81 Mg Tab.chew Daily Active [facility] Carvedilol 3.125 Mg Tablet Twice A Day Active [facility] Clonidine Hcl 0.1 Mg Tablet Every 8 Hours as needed for High Blood Pressure Active [facility] Fenofibrate Nanocrystallized (Fenofibrate) 145 Mg Tablet Daily Active [facility] Levocetirizine Dihydrochloride (Xyzal) 5 Mg Tablet Daily Active THERAPEUTICALLY SUBSTITUTED WITH LORATADINE [facility] Tramadol Hcl (Ultram) 50 Mg Tablet Every 6 Hours as needed for Pain Active [facility] Vit B12/Lmefolate Ca/Vit B6/B2 (Cerefolin Tablet) 1 Each Tablet Daily Active [facility] Allergies, Adverse Reactions, Alerts Substance Category Reaction Severity Reaction type Status Date Reported Comments Source Penicillin Unknown Allergy to Substance Active 03/09/2018 [facility] Sulfa (Sulfonamide Antibiotics) Mild Allergy to Substance Active 03/09/2018 [facility] Iodine Unknown Allergy to Substance Active 03/09/2018 [facility] Codeine Unknown Allergy to Substance Active 03/09/2018 [facility] Doxycycline Mild Allergy to Substance Active 03/09/2018 [facility] Clindamycin Mild Allergy to Substance Active 03/09/2018 [facility] LACTOSE INTOLERACE Unknown Allergy to Substance Active 10/05/2018 [facility] Eggs Unknown Allergy to Substance Active 10/07/2018 [facility] Immunizations No Data Provided for This Section Results Order Name Results Value Reference Range Date Interpretation Comments Source Blood leukocytes automated count (number/volume) 6.51 4.8 - 10.8 10/08/2018 [facility] Blood erythrocytes automated count (number/volume) 3.25 3.6 - 5.1 10/08/2018 [facility] Blood hemoglobin measurement (moles/volume) 9.8 12.0 - 16.0 10/08/2018 [facility] Automated blood hematocrit (volume fraction) 30.6 34.2 - 44.1 10/08/2018 [facility] Automated erythrocyte mean corpuscular volume 94.2 81 - 99 10/08/2018 [facility] Automated erythrocyte mean corpuscular hemoglobin (mass per erythrocyte) 30.2 28 - 32 10/08/2018 [facility] Automated erythrocyte mean corpuscular hemoglobin concentration measurement (mass/volume) 32.0 31 - 35 10/08/2018 [facility] RDW BldCo-Rto 15.5 11.7 - 14.4 10/08/2018 [facility] Automated blood platelet count (count/volume) 413 140 - 360 10/08/2018 [facility] Automated blood segmented neutrophil count as percentage of total leukocytes 60.3 38.7 - 80.0 10/08/2018 [facility] Automated blood lymphocyte count as percentage ot total leukocytes 23.5 18.0 - 39.1 10/08/2018 [facility] Automated blood monocyte count as percentage of total leukocytes 12.4 4.4 - 11.3 10/08/2018 [facility] Automated blood eosinophil count as percentage of total leukocytes 1.7 0.0 - 6.0 10/08/2018 [facility] Automated blood basophil count as percentage of total leukocytes 0.6 0.0 - 1.0 10/08/2018 [facility] IM GRANULOCYTES % 1.5 0.0 - 1.0 10/08/2018 [facility] Automated blood neutrophil count 3.9 2.1 - 6.9 10/08/2018 [facility] Blood lymphocytes count (number/volume) 1.5 1.0 - 3.2 10/08/2018 [facility] Blood monocytes automated count (number/volume) 0.8 0.2 - 0.8 10/08/2018 [facility] Automated blood eosinophil count 0.1 0.0 - 0.4 10/08/2018 [facility] Automated blood basophil count (count/volume) 0.0 0.0 - 0.1 10/08/2018 [facility] Absolute Immature Granulocyte (auto 0.10 0 - 0.1 10/08/2018 [facility] Differential Total Cells Counted 100 10/08/2018 [facility] Manual blood neutrophils/100 leukocytes 65 40 - 74 10/08/2018 [facility] Manual blood lymphocytes/100 leukocytes 23 19 - 48 10/08/2018 [facility] Manual blood monocytes/100 leukocytes 10 3.4 - 9.0 10/08/2018 [facility] Manual blood eosinophil count as percentage of total leukocytes 2 0 - 7 10/08/2018 [facility] Blood platelets count by estimate (number/volume) SLIGHTLY INCREASED 10/08/2018 [facility] Platelet morphology NORMAL 10/08/2018 [facility] RBC morphology NORMAL 10/08/2018 [facility] Serum or plasma sodium measurement (moles/volume) 136 136 - 145 10/08/2018 [facility] Serum or plasma potassium measurement (moles/volume) 3.9 3.5 - 5.1 10/08/2018 [facility] Serum or plasma chloride measurement (moles/volume) 104 98 - 107 10/08/2018 [facility] Serum or plasma carbon dioxide, total measurement (moles/volume) 23 22 - 29 10/08/2018 [facility] Serum or plasma anion gap 12.9 8 - 16 10/08/2018 [facility] Serum or plasma urea nitrogen measurement (mass/volume) 48 7 - 26 10/08/2018 [facility] Serum or plasma creatinine measurement (mass/volume) 1.03 0.57 - 1.11 10/08/2018 [facility] Serum or plasma urea nitrogen/creatinine mass ratio 47 6 - 25 10/08/2018 [facility] Estimated glomerular filtration rate (GFR) determination 51 60 10/08/2018 [facility] Glucose measurement 159 74 - 118 10/08/2018 [facility] Serum or plasma calcium measurement (mass/volume) 8.1 8.4 - 10.2 10/08/2018 [facility] Stool gastrointestinal hemoglobin detection POSITIVE NEGATIVE 10/06/2018 [facility] Blood lymphocytes variant count (number/volume) 7 10/06/2018 [facility] Blood polychromasia detection by light microscopy MODERATE 10/06/2018 [facility] Blood poikilocytosis detection by light microscopy SLIGHT 10/06/2018 [facility] Blood anisocytosis detection by light microscopy SLIGHT 10/06/2018 [facility] Blood macrocytes detection by light microscopy SLIGHT 10/06/2018 [facility] Blood ovalocytes detection by light microscopy FEW 10/06/2018 [facility] Blood helmet cells detection by light microscopy SLIGHT 10/06/2018 [facility] Urine color determination YELLOW YELLOW 10/05/2018 [facility] Urine clarity CLOUDY CLEAR 10/05/2018 [facility] Specific gravity of Urine by Test strip 1.010 1.010 - 1.025 10/05/2018 [facility] Urine pH measurement by automated test strip 6.5 5 - 7 10/05/2018 [facility] Urine leukocyte esterase detection by automated test strip SMALL NEGATIVE 10/05/2018 [facility] Urine nitrite detection by automated test strip NEGATIVE NEGATIVE 10/05/2018 [facility] Urine protein detection by automated test strip NEGATIVE NEGATIVE 10/05/2018 [facility] Urine glucose detection by automated test strip NEGATIVE NEGATIVE 10/05/2018 [facility] Urine ketones detection by automated test strip NEGATIVE NEGATIVE 10/05/2018 [facility] Urine urobilinogen measurement by test strip (mass/volume) 0.2 0.2 - 1 10/05/2018 [facility] Urine total bilirubin detection NEGATIVE NEGATIVE 10/05/2018 [facility] Urine erythrocytes detection 1+ NEGATIVE 10/05/2018 [facility] Automated urine sediment leukocyte count by microscopy (number/high power field) 0-5 0 - 5 10/05/2018 [facility] Erythrocytes detection in urine sediment by light microscopy 0-5 0 - 5 10/05/2018 [facility] Bacteria detection in urine sediment by light microscopy FEW NONE 10/05/2018 [facility] Epithelial cells detection in urine sediment by light microscopy FEW NONE 10/05/2018 [facility] Manual basophil percentage 2 0 - 1.5 10/05/2018 [facility] Manual blood myelocytes/100 leukocytes 1 0 - 0 10/05/2018 [facility] Blood blasts/100 leukocytes 1 10/05/2018 [facility] Blood hypochromia detection by light microscopy MODERATE 10/05/2018 [facility] Serum or plasma total bilirubin measurement (mass/volume) 0.5 0.2 - 1.2 10/05/2018 [facility] Aspartate Amino Transf (AST/SGOT) 16 5 - 34 10/05/2018 [facility] Serum or plasma alanine aminotransferase measurement (enzymatic activity/volume) 10 0 - 55 10/05/2018 [facility] Serum or plasma protein measurement (mass/volume) 5.9 6.5 - 8.1 10/05/2018 [facility] Serum or plasma albumin measurement (mass/volume) 2.3 3.5 - 5.0 10/05/2018 [facility] Plasma globulin measurement (mass/volume) 3.6 2.3 - 3.5 10/05/2018 [facility] Serum or plasma albumin/globulin mass ratio 0.6 0.8 - 2.0 10/05/2018 [facility] Serum or plasma alkaline phosphatase measurement (enzymatic activity/volume) 70 40 - 150 10/05/2018 [facility] Serum or plasma sodium measurement (moles/volume) 143 136 - 145 03/23/2018 [facility] Serum or plasma potassium measurement (moles/volume) 4.5 3.5 - 5.1 03/23/2018 [facility] Serum or plasma chloride measurement (moles/volume) 108 98 - 107 03/23/2018 [facility] Serum or plasma carbon dioxide, total measurement (moles/volume) 30 22 - 29 03/23/2018 [facility] Serum or plasma anion gap 9.5 8 - 16 03/23/2018 [facility] Serum or plasma urea nitrogen measurement (mass/volume) 38 7 - 26 03/23/2018 [facility] Serum or plasma creatinine measurement (mass/volume) 0.83 0.57 - 1.11 03/23/2018 [facility] Serum or plasma urea nitrogen/creatinine mass ratio 46 6 - 25 03/23/2018 [facility] Estimated glomerular filtration rate (GFR) determination > 60 60 03/23/2018 [facility] Glucose measurement 108 74 - 118 03/23/2018 [facility] Serum or plasma calcium measurement (mass/volume) 8.2 8.4 - 10.2 03/23/2018 [facility] Manual blood band neutrophils form/100 leukocytes 1 03/21/2018 [facility] Blood erythrocytes automated count (number/volume) 2.94 3.6 - 5.1 03/21/2018 [facility] Blood hemoglobin measurement (moles/volume) 8.9 12.0 - 16.0 03/21/2018 [facility] Automated blood hematocrit (volume fraction) 30.5 34.2 - 44.1 03/21/2018 [facility] Automated erythrocyte mean corpuscular volume 103.7 81 - 99 03/21/2018 [facility] Automated erythrocyte mean corpuscular hemoglobin (mass per erythrocyte) 30.3 28 - 32 03/21/2018 [facility] Automated erythrocyte mean corpuscular hemoglobin concentration measurement (mass/volume) 29.2 31 - 35 03/21/2018 [facility] RDW BldCo-Rto 16.5 11.7 - 14.4 03/21/2018 [facility] Automated blood platelet count (count/volume) 219 140 - 360 03/21/2018 [facility] Automated blood segmented neutrophil count as percentage of total leukocytes 74.0 38.7 - 80.0 03/21/2018 [facility] Automated blood lymphocyte count as percentage ot total leukocytes 11.5 18.0 - 39.1 03/21/2018 [facility] Automated blood monocyte count as percentage of total leukocytes 10.1 4.4 - 11.3 03/21/2018 [facility] Automated blood eosinophil count as percentage of total leukocytes 1.6 0.0 - 6.0 03/21/2018 [facility] Automated blood basophil count as percentage of total leukocytes 0.8 0.0 - 1.0 03/21/2018 [facility] IM GRANULOCYTES % 2.0 0.0 - 1.0 03/21/2018 [facility] Automated blood neutrophil count 6.3 2.1 - 6.9 03/21/2018 [facility] Blood lymphocytes count (number/volume) 1.0 1.0 - 3.2 03/21/2018 [facility] Blood monocytes automated count (number/volume) 0.9 0.2 - 0.8 03/21/2018 [facility] Automated blood eosinophil count 0.1 0.0 - 0.4 03/21/2018 [facility] Automated blood basophil count (count/volume) 0.1 0.0 - 0.1 03/21/2018 [facility] Absolute Immature Granulocyte (auto 0.17 0 - 0.1 03/21/2018 [facility] Differential Total Cells Counted 100 03/21/2018 [facility] Manual blood neutrophils/100 leukocytes 68 40 - 74 03/21/2018 [facility] Manual blood band neutrophils form/100 leukocytes 1 03/21/2018 [facility] Manual blood lymphocytes/100 leukocytes 12 19 - 48 03/21/2018 [facility] Manual blood monocytes/100 leukocytes 17 3.4 - 9.0 03/21/2018 [facility] Manual blood eosinophil count as percentage of total leukocytes 2 0 - 7 03/21/2018 [facility] Blood platelets count by estimate (number/volume) ADEQUATE 03/21/2018 [facility] Platelet morphology NORMAL 03/21/2018 [facility] Blood hypochromia detection by light microscopy SLIGHT 03/21/2018 [facility] RBC morphology NORMAL 03/21/2018 [facility] Phosphorus measurement 4.1 2.3 - 4.7 03/21/2018 [facility] Serum or plasma magnesium measurement (mass/volume) 2.1 1.3 - 2.1 03/21/2018 [facility] Phosphorus measurement 4.1 2.3 - 4.7 03/21/2018 [facility] Serum or plasma magnesium measurement (mass/volume) 2.1 1.3 - 2.1 03/21/2018 [facility] Blood lymphocytes variant count (number/volume) 2 03/19/2018 [facility] Blood anisocytosis detection by light microscopy SLIGHT 03/19/2018 [facility] Prothrombin time (PT) in platelet poor plasma by coagulation assay 16.0 11.9 - 14.5 03/18/2018 [facility] INR in Platelet poor plasma by Coagulation assay 1.18 03/18/2018 [facility] Prothrombin time (PT) in platelet poor plasma by coagulation assay 16.0 11.9 - 14.5 03/18/2018 [facility] INR in Platelet poor plasma by Coagulation assay 1.18 03/18/2018 [facility] Manual basophil percentage 1 0 - 1.5 03/17/2018 [facility] Manual blood myelocytes/100 leukocytes 2 0 - 0 03/17/2018 [facility] Blood nucleated erythrocytes count (number/volume) 3 03/17/2018 [facility] Serum or plasma total bilirubin measurement (mass/volume) 0.8 0.2 - 1.2 03/17/2018 [facility] Aspartate Amino Transf (AST/SGOT) 33 5 - 34 03/17/2018 [facility] Serum or plasma alanine aminotransferase measurement (enzymatic activity/volume) 27 0 - 55 03/17/2018 [facility] Serum or plasma protein measurement (mass/volume) 6.0 6.5 - 8.1 03/17/2018 [facility] Serum or plasma albumin measurement (mass/volume) 2.0 3.5 - 5.0 03/17/2018 [facility] Plasma globulin measurement (mass/volume) 4.0 2.3 - 3.5 03/17/2018 [facility] Serum or plasma albumin/globulin mass ratio 0.5 0.8 - 2.0 03/17/2018 [facility] Serum or plasma alkaline phosphatase measurement (enzymatic activity/volume) 91 40 - 150 03/17/2018 [facility] BNP [facility] 2261.2 0 - 100 03/17/2018 [facility] Blood nucleated erythrocytes count (number/volume) 3 03/17/2018 [facility] BNP [facility] 2261.2 0 - 100 03/17/2018 [facility] Arterial blood pH measurement 7.44 7.31 - 7.41 03/13/2018 [facility] pCO2 BldA 42 41 - 51 03/13/2018 [facility] pCO2 BldA 124 80 - 105 03/13/2018 [facility] Arterial blood bicarbonate measurement (moles/volume) 29 23 - 28 03/13/2018 [facility] Arterial blood base excess by calculation 5.0 -2 - 3 - 2 03/13/2018 [facility] Arterial blood oxygen saturation measurement 99.0 95 - 98 03/13/2018 [facility] FiO2 45 03/13/2018 [facility] Arterial blood pH measurement 7.44 7.31 - 7.41 03/13/2018 [facility] pCO2 BldA 42 41 - 51 03/13/2018 [facility] pCO2 BldA 124 80 - 105 03/13/2018 [facility] Arterial blood bicarbonate measurement (moles/volume) 29 23 - 28 03/13/2018 [facility] Arterial blood base excess by calculation 5.0 -2 - 3 - 2 03/13/2018 [facility] Arterial blood oxygen saturation measurement 99.0 95 - 98 03/13/2018 [facility] FiO2 45 03/13/2018 [facility] Blood cobalamin (vitamin B12) measurement (mass/volume) 1060 213 - 816 03/11/2018 [facility] Serum or plasma thyrotropin measurement by detection limit <=0.005 miu/l (units/volume) 1.146 0.350 - 4.940 03/11/2018 [facility] Blood cobalamin (vitamin B12) measurement (mass/volume) 1060 213 - 816 03/11/2018 [facility] Serum or plasma thyrotropin measurement by detection limit <=0.005 miu/l (units/volume) 1.146 0.350 - 4.940 03/11/2018 [facility] Serum or plasma creatine kinase measurement (enzymatic activity/volume) 83 29 - 168 03/10/2018 [facility] Serum or plasma creatine kinase MB measurement (mass/volume) 2.20 0 - 5.0 03/10/2018 [facility] Troponin I measurement by highly sensitive enzyme immunoassay 0.370 0 - 0.300 03/10/2018 [facility] Serum or plasma creatine kinase measurement (enzymatic activity/volume) 83 29 - 168 03/10/2018 [facility] Serum or plasma creatine kinase MB measurement (mass/volume) 2.20 0 - 5.0 03/10/2018 [facility] Troponin I measurement by highly sensitive enzyme immunoassay 0.370 0 - 0.300 03/10/2018 [facility] Activated partial thromboplastin time (aPTT) in platelet poor plasma bycoagulation assay 35.6 23.8 - 35.5 03/09/2018 [facility] Fibrin D-dimer DDU measurement in platelet poor plasma (mass/volume) 2.93 0.00 - 0.45 03/09/2018 [facility] Lactic Acid Level 17.1 4.5 - 19.8 03/09/2018 [facility] Activated partial thromboplastin time (aPTT) in platelet poor plasma bycoagulation assay 35.6 23.8 - 35.5 03/09/2018 [facility] Fibrin D-dimer DDU measurement in platelet poor plasma (mass/volume) 2.93 0.00 - 0.45 03/09/2018 [facility] Lactic Acid Level 17.1 4.5 - 19.8 03/09/2018 [facility] Blood culture NO GROWTH AFTER 5 DAYS, FINAL REPORT 03/09/2018 [facility] Urine color determination YELLOW YELLOW 03/09/2018 [facility] Urine clarity CLEAR CLEAR 03/09/2018 [facility] Specific gravity of Urine by Test strip 1.025 1.010 - 1.025 03/09/2018 [facility] Urine pH measurement by automated test strip 6 5 - 7 03/09/2018 [facility] Urine leukocyte esterase detection by dipstick NEGATIVE NEGATIVE 03/09/2018 [facility] Urine nitrite detection NEGATIVE NEGATIVE 03/09/2018 [facility] Urine protein measurement by test strip (mass/volume) 2+ NEGATIVE 03/09/2018 [facility] Urine glucose detection NEGATIVE NEGATIVE 03/09/2018 [facility] Urine ketones detection by automated test strip NEGATIVE NEGATIVE 03/09/2018 [facility] Urine urobilinogen measurement by test strip (mass/volume) 0.2 0.2 - 1 03/09/2018 [facility] Urine total bilirubin measurement (mass/volume) NEGATIVE NEGATIVE 03/09/2018 [facility] Urine erythrocytes detection TRACE NEGATIVE 03/09/2018 [facility] Automated urine sediment leukocyte count by microscopy (number/high power field) 6-10 0 - 5 03/09/2018 [facility] Erythrocytes detection in urine sediment by light microscopy 11-20 0 - 5 03/09/2018 [facility] Bacteria detection in urine sediment by light microscopy NONE NONE 03/09/2018 [facility] Epithelial cells detection in urine sediment by light microscopy MANY NONE 03/09/2018 [facility] Transitional cells detection in urine sediment by light microscopy MANY NONE 03/09/2018 [facility] Amorphous sediment detection in urine sediment by light microscopy MODERATE FEW 03/09/2018 [facility] Hyaline casts detection in urine sediment by light microscopy 2-5 0 - 1 03/09/2018 [facility] Transitional cells detection in urine sediment by light microscopy MANY NONE 03/09/2018 [facility] Amorphous sediment detection in urine sediment by light microscopy MODERATE FEW 03/09/2018 [facility] Hyaline casts detection in urine sediment by light microscopy 2-5 0 - 1 03/09/2018 [facility] Influenza virus A and B antigen identification by immunofluorescence NEGATIVE NEGATIVE 03/09/2018 [facility] Influenza virus A and B antigen identification by immunofluorescence NEGATIVE NEGATIVE 03/09/2018 [facility] Pathology Reports No Data Provided for This [...] Date DC Date Status Source Discharged Inpatient [id number] SYD FERNANDO MD 03/09/2018 03/25/2018 [facility] Discharged Inpatient (obs) [id number] SYD FERNANDO MD 10/05/2018 10/08/2018 [facility] Procedures Procedure Code Date Perfomer Comments Source Computed tomography of brain without radiopaque contrast [id number] 03/19/2018 [facility] Esophagogastroduodenoscopy (EGD) with placement of percutaneous endoscopic gastrostomy (PEG) [id number] 03/18/2018 [facility] INSERTION OF FEEDING DEVICE INTO STOMACH, PERC APPROACH [id number] 03/18/2018 [facility] RESPIRATORY VENTILATION, 24-96 CONSECUTIVE HOURS [id number] 03/09/2018 [facility] INSERTION OF ENDOTRACHEAL AIRWAY INTO TRACHEA, VIA OPENING [id number] 03/09/2018 [facility] Assessment and Plan No Data Provided for This Section Plan of Care Plan of Care Date Source Discharge Date 10/08/18 5:43pm Disposition [facility] Prescriptions See Medication Section Additional Instructions/Education PT TO RESTART ASPIRIN AFTER TWO WEEKS. 10/08/2018 [facility] Discharge Date 03/25/18 5:28pm Disposition TRANS TO OTHER [facility] Prescriptions See Medication Section 03/25/2018 [facility] Social History Social History Date Source Social [...] Applicable Smoking Status Start Date Stop Date Never Smoker 10/08/2018 [facility] Family History No Data Provided for This Section Advance Directives Order Name Results Value Date Source Advance Directives Advance Directives Directive Response Recorded Date/Time Does the patient have an advance directive? No 10/05/18 7:58pm If yes, is advance directive on file with [facility]? Yes 10/05/18 7:58pm If not on file with [facility] will patient provide a copy? No 10/05/18 7:58pm Do you have a Directive to Physician? Yes 10/05/18 6:35pm Do you have a Medical Power of Cuff Stitcher? Yes 10/05/18 6:35pm Do you have an out of hospital Do Not Resuscitate Order? Yes 10/05/18 6:35pm Do you have any special needs we should be aware of? No 10/05/18 6:34pm Do you have a support person here with you today? Yes 10/05/18 6:35pm Did patient receive Notice of Privacy Practices? Yes 10/05/18 6:35pm Did patient receive patient rights and responsibilities? Yes 10/05/18 6:35pm 10/08/2018 [facility] Advance Directives Advance Directives Directive Response Recorded Date/Time Does the patient have an advance directive? Yes 03/11/18 2:44pm If yes, is advance directive on file with [facility]? Yes 03/11/18 2:44pm If not on file with [facility] will patient provide a copy? No 03/09/18 11:00pm Do you have a Directive to Physician? No 03/09/18 5:15pm Do you have a Medical Power of Cuff Stitcher? No 03/09/18 5:15pm Do you have an [...] rights and responsibilities? Yes 03/09/18 5:15pm 03/25/2018 [facility] Functional Status No Data Provided for This Section
[2018-10-19] MEDS ORDERED: METHYLPREDNISOLONE SOD SUCC 125 MG/2ML VIAL IV ONE (04:45)
[2018-10-19] MEDS ORDERED: FUROSEMIDE INJ 10 MG/ML 4 ML VIAL IV ONE (04:45)
[2018-10-19] MEDS ORDERED: IPRATROPIUM BROMIDE 0.02% 2.5 ML NEB NEB ONE (04:45)
[2018-10-19] MEDS ORDERED: HYDRALAZINE HCL 20 MG/ML VIAL IV STA (04:47)
[2018-10-19] MEDS ORDERED: ONDANSETRON HCL INJ 2MG/ML 2ML 2 MG/ML VIAL IV STA (04:52)
[2018-10-19 04:54] LABS: BASOPHILS # (AUTO) 0.1 (0.0-0.1); BASOPHILS % 0.6 % (0.0-1.0); EOSINOPHILS # (AUTO) 0.1 (0.0-0.4); EOSINOPHILS % 0.8 % (0.0-6.0); HEMATOCRIT 35.1 % (34.2-44.1); LYMPHOCYTES % 24.6 % (18.0-39.1); MEAN CORPUSCULAR HEMOGLOBIN 29.7 pg (28-32); MEAN CORPUSCULAR HGB CONC 31.3 g/dL (31-35); MEAN CORPUSCULAR VOLUME 94.9 fL (81-99); MONOCYTES # (AUTO) 0.7 (0.2-0.8); NEUTROPHILS # (AUTO) 8.1 (2.1-6.9); NEUTROPHILS % 67.2 % (38.7-80.0); PLATELET COUNT 362 x10e3/uL (140-360); RED CELL DISTRIBUTION WIDTH 15.9 % (11.7-14.4)
[2018-10-19] MEDS ORDERED: ONDANSETRON HCL INJ 2MG/ML 2ML 2 MG/ML VIAL ONE (04:55)
--- NOTE | 2018-10-19 04:55 | NUR ---
PT RECEIVING HHN TX AT THIS TIME
--- NOTE | 2018-10-19 04:57 | NUR ---
PT PLACED ON BIPAP / T 40% FIO2
[2018-10-19] MEDS ORDERED: MELATONIN3 MG PO (04:58)
[2018-10-19] MEDS ORDERED: PANTOPRAZOLE SO40 MG PO (04:58)
[2018-10-19] MEDS ORDERED: VITAMIN D35000 UNIT PO (04:58)
[2018-10-19] MEDS ORDERED: BUDESONIDE EC3 MG PO (04:58)
[2018-10-19] MEDS ORDERED: ULTRAM50 MG PO (04:58)
[2018-10-19 05:13] LABS: ALBUMIN 2.4 g/dL (3.5-5.0); ALBUMIN/GLOBULIN RATIO 0.7 (0.8-2.0); ANION GAP 14.2 mmol/L (8-16); CALCIUM 8.5 mg/dL (8.4-10.2); CREATININE, SERUM 0.89 mg/dL (0.57-1.11); POTASSIUM 4.2 mmol/L (3.5-5.1)
[2018-10-19 05:20] LABS: CREATINE KINASE MB 2.3 ng/mL (0-5.0)
[2018-10-19] MEDS ORDERED: MORPHINE SULFATE 2 MG/ML SYR 1ML IV STA (05:38)
--- NOTE | 2018-10-19 05:53 | Diagnostic Imaging Report ---
EXAMINATION: CHEST SINGLE (PORTABLE) INDICATION: sob, h/o copd and chf ^Y COMPARISON: 03/22/2018. FINDINGS: TUBES and LINES: None. Stable left chest wall dual-lead pacer. LUNGS: Prominence of the pulmonary interstitium bilaterally with Ele B lines. Increased density throughout the lungs bilaterally. There is mild prominence of the central pulmonary vasculature, consistent with pulmonary venous congestion. PLEURA: Bilateral small pleural effusion. No pneumothorax. HEART AND MEDIASTINUM: Cardiac size is moderately enlarged. BONES AND SOFT TISSUES: No acute osseous lesion. UPPER ABDOMEN: No free air under the diaphragm. IMPRESSION: Decompensated CHF with bilateral pulmonary edema. Signed by: Dr. Dheeraj Bird M.D. on 10/19/2018 5:50 AM
--- NOTE | 2018-10-19 06:03 | NUR ---
in and out straight cath for urine, specimen collected and sent to lab
[2018-10-19 06:06] LABS: BILIRUBIN,URINE NEGATIVE (NEGATIVE); CLARITY,URINE CLEAR (CLEAR); COLOR,URINE YELLOW (YELLOW); KETONES,URINE NEGATIVE (NEGATIVE); LEUKOCYTE ESTERASE ,URINE NEGATIVE (NEGATIVE); NITRITE,URINE NEGATIVE (NEGATIVE); PROTEIN,URINE DIPSTICK 2+ (NEGATIVE); URINE UROBILINOGEN 0.2 mg/dL (0.2 - 1)
[2018-10-19] MEDS ORDERED: ACETAMINOPHEN 325 MG TAB PO PRN (06:15)
[2018-10-19] MEDS ORDERED: TRAMADOL HCL 50 MG TAB PO PRN (06:15)
[2018-10-19] MEDS ORDERED: SODIUM CHLORIDE FLUSH 10 ML SYR INJ PRN (06:15)
[2018-10-19 06:28] LABS: AMORPHOUS SEDIMENT,URINE FEW (FEW); BACTERIA,URINE MODERATE /HPF; EPITHELIAL CELLS,URINE MODERATE /LPF; MUCUS,URINE FEW (RARE)
--- OUTSIDE RECORDS SUMMARY | 2018-10-19 06:32 | XMS REPORT | Continuity of Care Document ---
Author Author [employer] Address Unknown Phone Unavailable Care Team Providers [employer] Person Name Role Phone [facility] Information [employer] Unavailable Unavailable Problems Problem Status Onset Date Classification Date Reported Comments Source Dyspnea Active 12/12/2014 Problem 10/08/2018 [facility] Malaise and fatigue Active 12/12/2014 Problem 10/08/2018 [facility] Subtherapeutic anticoagulation Active 12/12/2014 Problem 10/08/2018 [facility] Weakness Active 12/12/2014 Problem 10/08/2018 [facility] Anemia Active Problem 10/08/2018 [facility] Medications Medication Details Route Status Patient Instructions Ordering Provider Order Date Source Apixaban , 5 Mg Oral Twice A Day Active 10/08/2018 [facility] Hydralazine Hcl 25 Mg Tab, 100 Mg Oral Every 8 Hours Active 10/08/2018 [facility] Nifedipine (Nifediac Cc) 90 Mg Tablet.er, 90 Mg Oral Daily Active 10/08/2018 [facility] Atenolol 50 Mg Tablet, 50 Mg Oral Every Morning Active 10/06/2018 [facility] Budesonide (Budesonide Ec) 3 Mg Capdr...er, 9 Mg Oral Daily Active 10/06/2018 [facility] Fenofibric Acid (Choline) (Trilipix) 135 Mg Capsule.dr, 135 Mg Oral Daily Active 10/06/2018 [facility] Fluticasone Propionate (Flovent Diskus) 50 Mcg Disk.w.dev, 2 Sprays Nasal Every Morning Active 10/06/2018 [facility] Furosemide 40 Mg Tablet, Oral Daily Active 10/06/2018 [facility] Hyoscyamine Sulfate (Levsin) 0.125 Mg Tablet, 0.125 Mg Sublingual Every 6 Hours as needed for Bowel Movement Active 10/06/2018 [facility] Lecithin 518 Mg Capsule, 400 Mg Oral Mfs Active 10/06/2018 [facility] Minocycline Hcl 100 Mg Capsule, Oral Twice A Day Active 10/06/2018 [facility] Ondansetron Hcl (Zofran) 8 Mg Tablet, 4 Mg Oral Every 6 Hours as needed for Nausea Active 10/06/2018 [facility] Rezyst , 250 Mg Oral Daily Active 10/06/2018 [facility] Vitamin B Complex 100 No.2 (B-100 Complex) 100 Mg Tablet.er, 1 Tab Oral Daily Active 10/06/2018 [facility] Cyanocobalamin (Cyanocobalamin Injection) 1,000 Mcg/Ml Soln Daily Active [place] 12/15/2014 [facility] Hydrochlorothiazide 25 Mg Tablet, 25 Mg Oral Mfs Active 12/15/2014 [facility] Vitamin B Complex (Balanced B-50) 1 Each Tablet.er, 1 Tab Oral Daily Active 12/15/2014 [facility] Warfarin Sodium (Coumadin) 4 Mg Tablet, 4 Mg Oral Daily Active 12/15/2014 [facility] Cyanocobalamin (Cyanocobalamin Injection) 1,000 Mcg/Ml Soln, 1000 Mcg Intramusc Daily Active [place] 12/15/2014 [facility] Atenolol/Chlorthalidone (Atenolol-Chlorthal 50-25 Tb) 1 Each Tablet, 25 Mg Peg Tube Every Evening Active 01/14/2012 [facility] Budesonide (Entocort Ec) 3 Mg Capdr...er, Active 01/14/2012 [facility] Dexamethasone 4 Mg Tablet, Active 01/14/2012 [facility] Levocetirizine Dihydrochloride (Xyzal) 5 Mg Tablet, Active 01/14/2012 [facility] Levofloxacin 250 Mg Tablet, Active 01/14/2012 [facility] Atenolol 50 Mg Tablet Every Morning Active 25 mg po q pm [facility] Budesonide (Budesonide Ec) 3 Mg Capdr...er Daily Active [facility] Esomeprazole Magnesium (Nexium) 40 Mg Capsule. Daily Active [facility] Fenofibric Acid (Choline) (Trilipix) 135 Mg Capsule. Daily Active [facility] Fluticasone Propionate (Flovent Diskus) 50 Mcg Disk.w.dev Every Morning Active 2 PUFFS QAM / Q PM [facility] Furosemide 40 Mg Tablet Daily Active [facility] Hyoscyamine Sulfate (Levsin) 0.125 Mg Tablet Every 6 Hours as needed for Bowel Movement Active [facility] Lecithin 518 Mg Capsule Mfs Active [facility] Lisinopril (Prinivil) 10 Mg Tablet Daily Active [facility] Magnesium Oxide (Magnesium) 400 Mg Capsule Daily Active [facility] Minocycline Hcl 100 Mg Capsule Twice A Day Active [facility] Nifedipine (Nifediac Cc) 90 Mg Tablet.er Daily Active [facility] Potassium Chloride (K Dur*) 10 Meq Tabcr Daily Active [facility] Rezyst Daily Active [facility] Ubidecarenone (Coenzyme Q10) 400 Mg Capsule Daily Active [facility] Acetaminophen 325 Mg Tablet Every 6 Hours as needed for Pain Active [facility] Aspirin 81 Mg Tab.chew Daily Active [facility] Carvedilol 3.125 Mg Tablet Twice A Day Active [facility] Clonidine Hcl 0.1 Mg Tablet Every 8 Hours as needed for High Blood Pressure Active [facility] Fenofibrate Nanocrystallized (Fenofibrate) 145 Mg Tablet Daily Active [facility] Levocetirizine Dihydrochloride (Xyzal) 5 Mg Tablet Daily Active THERAPEUTICALLY SUBSTITUTED WITH LORATADINE [facility] Tramadol Hcl (Ultram) 50 Mg Tablet Every 6 Hours as needed for Pain Active [facility] Vit B12/Lmefolate Ca/Vit B6/B2 (Cerefolin Tablet) 1 Each Tablet Daily Active [facility] Allergies, Adverse Reactions, Alerts Substance Category Reaction Severity Reaction type Status Date Reported Comments Source Penicillin Unknown Allergy to Substance Active 03/09/2018 [facility] Sulfa (Sulfonamide Antibiotics) Mild Allergy to Substance Active 03/09/2018 [facility] Iodine Unknown Allergy to Substance Active 03/09/2018 [facility] Codeine Unknown Allergy to Substance Active 03/09/2018 [facility] Doxycycline Mild Allergy to Substance Active 03/09/2018 [facility] Clindamycin Mild Allergy to Substance Active 03/09/2018 [facility] LACTOSE INTOLERACE Unknown Allergy to Substance Active 10/05/2018 [facility] Eggs Unknown Allergy to Substance Active 10/07/2018 [facility] Immunizations No Data Provided for This Section Results Order Name Results Value Reference Range Date Interpretation Comments Source Blood leukocytes automated count (number/volume) 6.51 4.8 - 10.8 10/08/2018 [facility] Blood erythrocytes automated count (number/volume) 3.25 3.6 - 5.1 10/08/2018 [facility] Blood hemoglobin measurement (moles/volume) 9.8 12.0 - 16.0 10/08/2018 [facility] Automated blood hematocrit (volume fraction) 30.6 34.2 - 44.1 10/08/2018 [facility] Automated erythrocyte mean corpuscular volume 94.2 81 - 99 10/08/2018 [facility] Automated erythrocyte mean corpuscular hemoglobin (mass per erythrocyte) 30.2 28 - 32 10/08/2018 [facility] Automated erythrocyte mean corpuscular hemoglobin concentration measurement (mass/volume) 32.0 31 - 35 10/08/2018 [facility] RDW BldCo-Rto 15.5 11.7 - 14.4 10/08/2018 [facility] Automated blood platelet count (count/volume) 413 140 - 360 10/08/2018 [facility] Automated blood segmented neutrophil count as percentage of total leukocytes 60.3 38.7 - 80.0 10/08/2018 [facility] Automated blood lymphocyte count as percentage ot total leukocytes 23.5 18.0 - 39.1 10/08/2018 [facility] Automated blood monocyte count as percentage of total leukocytes 12.4 4.4 - 11.3 10/08/2018 [facility] Automated blood eosinophil count as percentage of total leukocytes 1.7 0.0 - 6.0 10/08/2018 [facility] Automated blood basophil count as percentage of total leukocytes 0.6 0.0 - 1.0 10/08/2018 [facility] IM GRANULOCYTES % 1.5 0.0 - 1.0 10/08/2018 [facility] Automated blood neutrophil count 3.9 2.1 - 6.9 10/08/2018 [facility] Blood lymphocytes count (number/volume) 1.5 1.0 - 3.2 10/08/2018 [facility] Blood monocytes automated count (number/volume) 0.8 0.2 - 0.8 10/08/2018 [facility] Automated blood eosinophil count 0.1 0.0 - 0.4 10/08/2018 [facility] Automated blood basophil count (count/volume) 0.0 0.0 - 0.1 10/08/2018 [facility] Absolute Immature Granulocyte (auto 0.10 0 - 0.1 10/08/2018 [facility] Differential Total Cells Counted 100 10/08/2018 [facility] Manual blood neutrophils/100 leukocytes 65 40 - 74 10/08/2018 [facility] Manual blood lymphocytes/100 leukocytes 23 19 - 48 10/08/2018 [facility] Manual blood monocytes/100 leukocytes 10 3.4 - 9.0 10/08/2018 [facility] Manual blood eosinophil count as percentage of total leukocytes 2 0 - 7 10/08/2018 [facility] Blood platelets count by estimate (number/volume) SLIGHTLY INCREASED 10/08/2018 [facility] Platelet morphology NORMAL 10/08/2018 [facility] RBC morphology NORMAL 10/08/2018 [facility] Serum or plasma sodium measurement (moles/volume) 136 136 - 145 10/08/2018 [facility] Serum or plasma potassium measurement (moles/volume) 3.9 3.5 - 5.1 10/08/2018 [facility] Serum or plasma chloride measurement (moles/volume) 104 98 - 107 10/08/2018 [facility] Serum or plasma carbon dioxide, total measurement (moles/volume) 23 22 - 29 10/08/2018 [facility] Serum or plasma anion gap 12.9 8 - 16 10/08/2018 [facility] Serum or plasma urea nitrogen measurement (mass/volume) 48 7 - 26 10/08/2018 [facility] Serum or plasma creatinine measurement (mass/volume) 1.03 0.57 - 1.11 10/08/2018 [facility] Serum or plasma urea nitrogen/creatinine mass ratio 47 6 - 25 10/08/2018 [facility] Estimated glomerular filtration rate (GFR) determination 51 60 10/08/2018 [facility] Glucose measurement 159 74 - 118 10/08/2018 [facility] Serum or plasma calcium measurement (mass/volume) 8.1 8.4 - 10.2 10/08/2018 [facility] Stool gastrointestinal hemoglobin detection POSITIVE NEGATIVE 10/06/2018 [facility] Blood lymphocytes variant count (number/volume) 7 10/06/2018 [facility] Blood polychromasia detection by light microscopy MODERATE 10/06/2018 [facility] Blood poikilocytosis detection by light microscopy SLIGHT 10/06/2018 [facility] Blood anisocytosis detection by light microscopy SLIGHT 10/06/2018 [facility] Blood macrocytes detection by light microscopy SLIGHT 10/06/2018 [facility] Blood ovalocytes detection by light microscopy FEW 10/06/2018 [facility] Blood helmet cells detection by light microscopy SLIGHT 10/06/2018 [facility] Urine color determination YELLOW YELLOW 10/05/2018 [facility] Urine clarity CLOUDY CLEAR 10/05/2018 [facility] Specific gravity of Urine by Test strip 1.010 1.010 - 1.025 10/05/2018 [facility] Urine pH measurement by automated test strip 6.5 5 - 7 10/05/2018 [facility] Urine leukocyte esterase detection by automated test strip SMALL NEGATIVE 10/05/2018 [facility] Urine nitrite detection by automated test strip NEGATIVE NEGATIVE 10/05/2018 [facility] Urine protein detection by automated test strip NEGATIVE NEGATIVE 10/05/2018 [facility] Urine glucose detection by automated test strip NEGATIVE NEGATIVE 10/05/2018 [facility] Urine ketones detection by automated test strip NEGATIVE NEGATIVE 10/05/2018 [facility] Urine urobilinogen measurement by test strip (mass/volume) 0.2 0.2 - 1 10/05/2018 [facility] Urine total bilirubin detection NEGATIVE NEGATIVE 10/05/2018 [facility] Urine erythrocytes detection 1+ NEGATIVE 10/05/2018 [facility] Automated urine sediment leukocyte count by microscopy (number/high power field) 0-5 0 - 5 10/05/2018 [facility] Erythrocytes detection in urine sediment by light microscopy 0-5 0 - 5 10/05/2018 [facility] Bacteria detection in urine sediment by light microscopy FEW NONE 10/05/2018 [facility] Epithelial cells detection in urine sediment by light microscopy FEW NONE 10/05/2018 [facility] Manual basophil percentage 2 0 - 1.5 10/05/2018 [facility] Manual blood myelocytes/100 leukocytes 1 0 - 0 10/05/2018 [facility] Blood blasts/100 leukocytes 1 10/05/2018 [facility] Blood hypochromia detection by light microscopy MODERATE 10/05/2018 [facility] Serum or plasma total bilirubin measurement (mass/volume) 0.5 0.2 - 1.2 10/05/2018 [facility] Aspartate Amino Transf (AST/SGOT) 16 5 - 34 10/05/2018 [facility] Serum or plasma alanine aminotransferase measurement (enzymatic activity/volume) 10 0 - 55 10/05/2018 [facility] Serum or plasma protein measurement (mass/volume) 5.9 6.5 - 8.1 10/05/2018 [facility] Serum or plasma albumin measurement (mass/volume) 2.3 3.5 - 5.0 10/05/2018 [facility] Plasma globulin measurement (mass/volume) 3.6 2.3 - 3.5 10/05/2018 [facility] Serum or plasma albumin/globulin mass ratio 0.6 0.8 - 2.0 10/05/2018 [facility] Serum or plasma alkaline phosphatase measurement (enzymatic activity/volume) 70 40 - 150 10/05/2018 [facility] Serum or plasma sodium measurement (moles/volume) 143 136 - 145 03/23/2018 [facility] Serum or plasma potassium measurement (moles/volume) 4.5 3.5 - 5.1 03/23/2018 [facility] Serum or plasma chloride measurement (moles/volume) 108 98 - 107 03/23/2018 [facility] Serum or plasma carbon dioxide, total measurement (moles/volume) 30 22 - 29 03/23/2018 [facility] Serum or plasma anion gap 9.5 8 - 16 03/23/2018 [facility] Serum or plasma urea nitrogen measurement (mass/volume) 38 7 - 26 03/23/2018 [facility] Serum or plasma creatinine measurement (mass/volume) 0.83 0.57 - 1.11 03/23/2018 [facility] Serum or plasma urea nitrogen/creatinine mass ratio 46 6 - 25 03/23/2018 [facility] Estimated glomerular filtration rate (GFR) determination > 60 60 03/23/2018 [facility] Glucose measurement 108 74 - 118 03/23/2018 [facility] Serum or plasma calcium measurement (mass/volume) 8.2 8.4 - 10.2 03/23/2018 [facility] Manual blood band neutrophils form/100 leukocytes 1 03/21/2018 [facility] Blood erythrocytes automated count (number/volume) 2.94 3.6 - 5.1 03/21/2018 [facility] Blood hemoglobin measurement (moles/volume) 8.9 12.0 - 16.0 03/21/2018 [facility] Automated blood hematocrit (volume fraction) 30.5 34.2 - 44.1 03/21/2018 [facility] Automated erythrocyte mean corpuscular volume 103.7 81 - 99 03/21/2018 [facility] Automated erythrocyte mean corpuscular hemoglobin (mass per erythrocyte) 30.3 28 - 32 03/21/2018 [facility] Automated erythrocyte mean corpuscular hemoglobin concentration measurement (mass/volume) 29.2 31 - 35 03/21/2018 [facility] RDW BldCo-Rto 16.5 11.7 - 14.4 03/21/2018 [facility] Automated blood platelet count (count/volume) 219 140 - 360 03/21/2018 [facility] Automated blood segmented neutrophil count as percentage of total leukocytes 74.0 38.7 - 80.0 03/21/2018 [facility] Automated blood lymphocyte count as percentage ot total leukocytes 11.5 18.0 - 39.1 03/21/2018 [facility] Automated blood monocyte count as percentage of total leukocytes 10.1 4.4 - 11.3 03/21/2018 [facility] Automated blood eosinophil count as percentage of total leukocytes 1.6 0.0 - 6.0 03/21/2018 [facility] Automated blood basophil count as percentage of total leukocytes 0.8 0.0 - 1.0 03/21/2018 [facility] IM GRANULOCYTES % 2.0 0.0 - 1.0 03/21/2018 [facility] Automated blood neutrophil count 6.3 2.1 - 6.9 03/21/2018 [facility] Blood lymphocytes count (number/volume) 1.0 1.0 - 3.2 03/21/2018 [facility] Blood monocytes automated count (number/volume) 0.9 0.2 - 0.8 03/21/2018 [facility] Automated blood eosinophil count 0.1 0.0 - 0.4 03/21/2018 [facility] Automated blood basophil count (count/volume) 0.1 0.0 - 0.1 03/21/2018 [facility] Absolute Immature Granulocyte (auto 0.17 0 - 0.1 03/21/2018 [facility] Differential Total Cells Counted 100 03/21/2018 [facility] Manual blood neutrophils/100 leukocytes 68 40 - 74 03/21/2018 [facility] Manual blood band neutrophils form/100 leukocytes 1 03/21/2018 [facility] Manual blood lymphocytes/100 leukocytes 12 19 - 48 03/21/2018 [facility] Manual blood monocytes/100 leukocytes 17 3.4 - 9.0 03/21/2018 [facility] Manual blood eosinophil count as percentage of total leukocytes 2 0 - 7 03/21/2018 [facility] Blood platelets count by estimate (number/volume) ADEQUATE 03/21/2018 [facility] Platelet morphology NORMAL 03/21/2018 [facility] Blood hypochromia detection by light microscopy SLIGHT 03/21/2018 [facility] RBC morphology NORMAL 03/21/2018 [facility] Phosphorus measurement 4.1 2.3 - 4.7 03/21/2018 [facility] Serum or plasma magnesium measurement (mass/volume) 2.1 1.3 - 2.1 03/21/2018 [facility] Phosphorus measurement 4.1 2.3 - 4.7 03/21/2018 [facility] Serum or plasma magnesium measurement (mass/volume) 2.1 1.3 - 2.1 03/21/2018 [facility] Blood lymphocytes variant count (number/volume) 2 03/19/2018 [facility] Blood anisocytosis detection by light microscopy SLIGHT 03/19/2018 [facility] Prothrombin time (PT) in platelet poor plasma by coagulation assay 16.0 11.9 - 14.5 03/18/2018 [facility] INR in Platelet poor plasma by Coagulation assay 1.18 03/18/2018 [facility] Prothrombin time (PT) in platelet poor plasma by coagulation assay 16.0 11.9 - 14.5 03/18/2018 [facility] INR in Platelet poor plasma by Coagulation assay 1.18 03/18/2018 [facility] Manual basophil percentage 1 0 - 1.5 03/17/2018 [facility] Manual blood myelocytes/100 leukocytes 2 0 - 0 03/17/2018 [facility] Blood nucleated erythrocytes count (number/volume) 3 03/17/2018 [facility] Serum or plasma total bilirubin measurement (mass/volume) 0.8 0.2 - 1.2 03/17/2018 [facility] Aspartate Amino Transf (AST/SGOT) 33 5 - 34 03/17/2018 [facility] Serum or plasma alanine aminotransferase measurement (enzymatic activity/volume) 27 0 - 55 03/17/2018 [facility] Serum or plasma protein measurement (mass/volume) 6.0 6.5 - 8.1 03/17/2018 [facility] Serum or plasma albumin measurement (mass/volume) 2.0 3.5 - 5.0 03/17/2018 [facility] Plasma globulin measurement (mass/volume) 4.0 2.3 - 3.5 03/17/2018 [facility] Serum or plasma albumin/globulin mass ratio 0.5 0.8 - 2.0 03/17/2018 [facility] Serum or plasma alkaline phosphatase measurement (enzymatic activity/volume) 91 40 - 150 03/17/2018 [facility] BNP [facility] 2261.2 0 - 100 03/17/2018 [facility] Blood nucleated erythrocytes count (number/volume) 3 03/17/2018 [facility] BNP [facility] 2261.2 0 - 100 03/17/2018 [facility] Arterial blood pH measurement 7.44 7.31 - 7.41 03/13/2018 [facility] pCO2 BldA 42 41 - 51 03/13/2018 [facility] pCO2 BldA 124 80 - 105 03/13/2018 [facility] Arterial blood bicarbonate measurement (moles/volume) 29 23 - 28 03/13/2018 [facility] Arterial blood base excess by calculation 5.0 -2 - 3 - 2 03/13/2018 [facility] Arterial blood oxygen saturation measurement 99.0 95 - 98 03/13/2018 [facility] FiO2 45 03/13/2018 [facility] Arterial blood pH measurement 7.44 7.31 - 7.41 03/13/2018 [facility] pCO2 BldA 42 41 - 51 03/13/2018 [facility] pCO2 BldA 124 80 - 105 03/13/2018 [facility] Arterial blood bicarbonate measurement (moles/volume) 29 23 - 28 03/13/2018 [facility] Arterial blood base excess by calculation 5.0 -2 - 3 - 2 03/13/2018 [facility] Arterial blood oxygen saturation measurement 99.0 95 - 98 03/13/2018 [facility] FiO2 45 03/13/2018 [facility] Blood cobalamin (vitamin B12) measurement (mass/volume) 1060 213 - 816 03/11/2018 [facility] Serum or plasma thyrotropin measurement by detection limit <=0.005 miu/l (units/volume) 1.146 0.350 - 4.940 03/11/2018 [facility] Blood cobalamin (vitamin B12) measurement (mass/volume) 1060 213 - 816 03/11/2018 [facility] Serum or plasma thyrotropin measurement by detection limit <=0.005 miu/l (units/volume) 1.146 0.350 - 4.940 03/11/2018 [facility] Serum or plasma creatine kinase measurement (enzymatic activity/volume) 83 29 - 168 03/10/2018 [facility] Serum or plasma creatine kinase MB measurement (mass/volume) 2.20 0 - 5.0 03/10/2018 [facility] Troponin I measurement by highly sensitive enzyme immunoassay 0.370 0 - 0.300 03/10/2018 [facility] Serum or plasma creatine kinase measurement (enzymatic activity/volume) 83 29 - 168 03/10/2018 [facility] Serum or plasma creatine kinase MB measurement (mass/volume) 2.20 0 - 5.0 03/10/2018 [facility] Troponin I measurement by highly sensitive enzyme immunoassay 0.370 0 - 0.300 03/10/2018 [facility] Activated partial thromboplastin time (aPTT) in platelet poor plasma bycoagulation assay 35.6 23.8 - 35.5 03/09/2018 [facility] Fibrin D-dimer DDU measurement in platelet poor plasma (mass/volume) 2.93 0.00 - 0.45 03/09/2018 [facility] Lactic Acid Level 17.1 4.5 - 19.8 03/09/2018 [facility] Activated partial thromboplastin time (aPTT) in platelet poor plasma bycoagulation assay 35.6 23.8 - 35.5 03/09/2018 [facility] Fibrin D-dimer DDU measurement in platelet poor plasma (mass/volume) 2.93 0.00 - 0.45 03/09/2018 [facility] Lactic Acid Level 17.1 4.5 - 19.8 03/09/2018 [facility] Blood culture NO GROWTH AFTER 5 DAYS, FINAL REPORT 03/09/2018 [facility] Urine color determination YELLOW YELLOW 03/09/2018 [facility] Urine clarity CLEAR CLEAR 03/09/2018 [facility] Specific gravity of Urine by Test strip 1.025 1.010 - 1.025 03/09/2018 [facility] Urine pH measurement by automated test strip 6 5 - 7 03/09/2018 [facility] Urine leukocyte esterase detection by dipstick NEGATIVE NEGATIVE 03/09/2018 [facility] Urine nitrite detection NEGATIVE NEGATIVE 03/09/2018 [facility] Urine protein measurement by test strip (mass/volume) 2+ NEGATIVE 03/09/2018 [facility] Urine glucose detection NEGATIVE NEGATIVE 03/09/2018 [facility] Urine ketones detection by automated test strip NEGATIVE NEGATIVE 03/09/2018 [facility] Urine urobilinogen measurement by test strip (mass/volume) 0.2 0.2 - 1 03/09/2018 [facility] Urine total bilirubin measurement (mass/volume) NEGATIVE NEGATIVE 03/09/2018 [facility] Urine erythrocytes detection TRACE NEGATIVE 03/09/2018 [facility] Automated urine sediment leukocyte count by microscopy (number/high power field) 6-10 0 - 5 03/09/2018 [facility] Erythrocytes detection in urine sediment by light microscopy 11-20 0 - 5 03/09/2018 [facility] Bacteria detection in urine sediment by light microscopy NONE NONE 03/09/2018 [facility] Epithelial cells detection in urine sediment by light microscopy MANY NONE 03/09/2018 [facility] Transitional cells detection in urine sediment by light microscopy MANY NONE 03/09/2018 [facility] Amorphous sediment detection in urine sediment by light microscopy MODERATE FEW 03/09/2018 [facility] Hyaline casts detection in urine sediment by light microscopy 2-5 0 - 1 03/09/2018 [facility] Transitional cells detection in urine sediment by light microscopy MANY NONE 03/09/2018 [facility] Amorphous sediment detection in urine sediment by light microscopy MODERATE FEW 03/09/2018 [facility] Hyaline casts detection in urine sediment by light microscopy 2-5 0 - 1 03/09/2018 [facility] Influenza virus A and B antigen identification by immunofluorescence NEGATIVE NEGATIVE 03/09/2018 [facility] Influenza virus A and B antigen identification by immunofluorescence NEGATIVE NEGATIVE 03/09/2018 [facility] Pathology Reports No Data Provided for This [...] Date DC Date Status Source Discharged Inpatient [id number] SYD FERNANDO MD 03/09/2018 03/25/2018 [facility] Discharged Inpatient (obs) [id number] SYD FERNANDO MD 10/05/2018 10/08/2018 [facility] Procedures Procedure Code Date Perfomer Comments Source Computed tomography of brain without radiopaque contrast [id number] 03/19/2018 [facility] Esophagogastroduodenoscopy (EGD) with placement of percutaneous endoscopic gastrostomy (PEG) [id number] 03/18/2018 [facility] INSERTION OF FEEDING DEVICE INTO STOMACH, PERC APPROACH [id number] 03/18/2018 [facility] RESPIRATORY VENTILATION, 24-96 CONSECUTIVE HOURS [id number] 03/09/2018 [facility] INSERTION OF ENDOTRACHEAL AIRWAY INTO TRACHEA, VIA OPENING [id number] 03/09/2018 [facility] Assessment and Plan No Data Provided for This Section Plan of Care Plan of Care Date Source Discharge Date 10/08/18 5:43pm Disposition TRANSFER LONG TERM Prescriptions See Medication Section Additional Instructions/Education PT TO RESTART ASPIRIN AFTER TWO WEEKS. 10/08/2018 [facility] Discharge Date 03/25/18 5:28pm Disposition TRANS TO OTHER [facility] Prescriptions See Medication Section 03/25/2018 [facility] Social History Social History Date Source Social [...] Start Date Stop Date Never Smoker 10/08/2018 [facility] Family History No Data Provided for This Section Advance Directives Order Name Results Value Date Source Advance Directives Advance Directives Directive Response Recorded Date/Time Does the patient have an advance directive? No 10/05/18 7:58pm If yes, is advance directive on file with [facility]? Yes 10/05/18 7:58pm If not on file with [facility] will patient provide a copy? No 10/05/18 7:58pm Do you have a Directive to Physician? Yes 10/05/18 6:35pm Do you have a Medical Power of Sewer Inspector? Yes 10/05/18 6:35pm Do you have an [...] rights and responsibilities? Yes 10/05/18 6:35pm 10/08/2018 [facility] Advance Directives Advance Directives Directive Response Recorded Date/Time Does the patient have an advance directive? Yes 03/11/18 2:44pm If yes, is advance directive on file with [facility]? Yes 03/11/18 2:44pm If not on file with [facility] will patient provide a copy? No 03/09/18 11:00pm Do you have a Directive to Physician? No 03/09/18 5:15pm Do you have a Medical Power of Sewer Inspector? No 03/09/18 5:15pm Do you have an [...] rights and responsibilities? Yes 03/09/18 5:15pm 03/25/2018 [facility] Functional Status No Data Provided for This Section
--- NOTE | 2018-10-19 06:46 | NUR ---
report given to marisa cedeño
--- NOTE | 2018-10-19 06:50 | NUR ---
pt receiving duoneb tx at this time
[2018-10-19] MEDS: ALBUTEROL/IPRATROPIUM 3 ML NEB NEB SCH ×5 (06:55→23:30)
--- NOTE | 2018-10-19 08:30 | NUR ---
pt repositioned and buttocks examined; upon examination redness noted to sacral/buttocks area and swelling noted to left knee; pt placed on hosp bed
--- NOTE | 2018-10-19 08:32 | NUR ---
Dr. Wright answering service called twice; Dr Wright has not called back; nurse looking for orders to wean pt of bipap and possibly downgrade to med surg; pt has po meds and breakfast that she is not able to ingest due to bipap; Ashvin and Lima consulted about situation
[2018-10-19] MEDS: FUROSEMIDE INJ 10 MG/ML 4 ML VIAL IV SCH ×2 (08:43→17:00)
[2018-10-19] MEDS: BUDESONIDE 3 MG CAPCR PO SCH ×2 (08:55→10:01)
[2018-10-19] MEDS: CARVEDILOL 3.125 MG TAB PO SCH ×2 (08:58→09:32)
[2018-10-19] MEDS: LISINOPRIL 10 MG TAB PO SCH ×2 (08:58→09:32)
[2018-10-19] MEDS: MAGNESIUM OXIDE 400 MG TAB PO SCH ×2 (08:59→09:32)
[2018-10-19] MEDS: PANTOPRAZOLE SOD 40 MG TABEC PO SCH ×2 (08:59→09:32)
[2018-10-19] MEDS ORDERED: CHOLECALCIFEROL 5000 UNIT PO SCH (09:00)
--- NOTE | 2018-10-19 09:01 | NUR ---
Dr. Wright at pt bedside
--- NOTE | 2018-10-19 09:04 | NUR ---
per Dr Wright start weaning pt off bipap and put in consult order for Dr. Pizarro; order repeated back and confirmed
--- NOTE | 2018-10-19 09:18 | NUR ---
Dr. Millan at pt bedside
--- NOTE | 2018-10-19 09:23 | NUR ---
VERBAL ORDER RECEIVED FROM DR LUNA TO DOWNGRADE PATIENT TO MED/SURG WITH TELE AND SPO2.
[2018-10-19 09:33] LABS: ABG HCO3 22 mmol/L (23-28); ABG PCO2 35 mmHg (41-51); ABG PH 7.42 (7.31-7.41); ABG PO2 134 mmHg (80-105)
[2018-10-19 09:56] LABS: % IRON SATURATION 23 % (15-50); IRON 70 ug/dL (50-170); TOTAL IRON BINDING CAPACITY 307 ug/dL (261-478); TRANSFERRIN 219 mg/dL (180-382)
[2018-10-19] MEDS: CHOLECALCIFEROL 1,000 UNIT TAB PO SCH (10:01)
[2018-10-19] MEDS: HEPARIN SOD (PORCINE) 5,000 UNIT/ML VIAL SC SCH ×2 (10:05→21:00)
[2018-10-19] MEDS: CEFTRIAXONE SOD 1 GM/NS 50 ML 50 ML IV SCH (10:07)
[2018-10-19 10:19] LABS: INR 1.03
--- NOTE | 2018-10-19 13:08 | Consultation ---
DATE OF CONSULTATION: 10/19/2018 Pulmonary Consultation Patient of mina Hall, but unfortunate 88-year-old woman, group home resident. History of unstable knees confined to wheelchair. The patient says that she became extremely short of breath last evening. She believes her lisinopril was accidentally stopped in the group home. She has a history of hypertension and congestive heart failure, sick sinus syndrome. She has had bilateral knee replacements. She has had skin cancers. She still tries to smoke occasionally, smoke for over 60 years. 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 ALLERGIES: SHE IS ALLERGIC TO CLEOCIN, IODINE, DOXYCYCLINE, PENICILLIN, AND SULFA. FAMILY HISTORY: Positive for melanoma. She was born in [place]. MEDICATIONS: According to record, her home medications included Tylenol, budesonide, Coreg, vitamin D, clonidine p.r.n., lisinopril, magnesium oxide, melatonin, Protonix, and tramadol. PHYSICAL EXAMINATION: GENERAL: She is Sprightly white female, now in no acute distress. Requesting breakfast. VITAL SIGNS: Temperature 97.7, respirations 14, blood pressure on admission was 220/102, now 147/62. HEENT: Head, normocephalic, atraumatic. Eyes, extraocular movements are intact. LUNGS: Few rales bilaterally. HEART: Regular rhythm. ABDOMEN: Scaphoid. EXTREMITIES: There is bruising in the left knee surgical scar there and contracture of the right knee surgical scar there. LABORATORY DATA: Mild anemia with a hemoglobin of 11, presumably anemia of chronic disease. Moderately elevated blood sugar of 199. BNP 3700. Albumin 2.4. PLAN: Plan is to monitor blood pressure. Resume lisinopril. Hopefully, wean off clonidine, which has been associated with spikes, hypertension. Thank you for this kind referral. MD SATNAM Vázquez/ANGEL /[id number]
[2018-10-19 14:25] LABS: CREATINE KINASE MB 3.7 ng/mL (0-5.0)
--- NOTE | 2018-10-19 14:55 | NUR ---
RECD PT FROM ER VIA BED AAOX3,DENIES PAIN,NO DISTRESS NTOED,O2 2L NC IN PLACE O2 SATS 97%NO SKIN BREAK DOWN NOTED,REDNESS TO SACRAL AREA,MULTIPLE BRUISES NOTED TO UPPER EXT,LT KNEE BRUISING AND SWELLING NOTED,PT STATES FALLEN IN THE PAST.
[2018-10-19 15:00] VITALS: BP 153/75
--- NOTE | 2018-10-19 18:01 | NUR ---
PT UP IN BED DENIES PAIN ,WALKER AND BSC aT BEDSIDE,CALL VALENTINE IN REACH INSTRUCTED PT TO CALL FOR HELP,BED ALARM ON
--- NOTE | 2018-10-19 18:55 | NUR ---
BS rounds completed with morning nurse. Pt alert and orient to name. Lying in bed HIB 30 degrees. Denies pain at this time. Call winters within reach. Bed low and locked. Will continue to monitor.
[2018-10-19 20:00] VITALS: BP 160/68
[2018-10-19 20:30] VITALS: BP 160/68
--- NOTE | 2018-10-19 20:30 | NUR ---
Completed front line supervisor. Pt alert and oriented to name, place, and situation. Skin several bruises, including purple bruised mass left knee. Healing S/T to left forearm with steri strips. O2 @2L via NC, sat 95%. Denies SOB. BLE +1 edema. Last BM 10/18, active BS x4 quads. Full code. Oriented to room. Call winters within reach.
[2018-10-19 21:00] VITALS: BP 160/68
[2018-10-19] MEDS: MELATONIN 3 MG TAB PO SCH (21:00)
[2018-10-19] MEDS: TRAMADOL HCL 50 MG TAB PO SCH (21:00)
--- NOTE | 2018-10-19 23:00 | History and Physical ---
HISTORY OF PRESENT ILLNESS: Ms. Roman is a pleasant 88-year-old lady, patient of Dr. Alexander Rodrigez, known to me from prior hospital admissions. She has past medical history significant for congestive heart failure, prior episode of respiratory failure that needed intubation and mechanical ventilation, sick sinus syndrome, hyperlipidemia, Crohn disease, B12 deficiency, chronic anticoagulation, and anemia. She had been admitted recently to this hospital on October 05, when she came in because of acute anemia. At the time of admission, her hemoglobin level was about 6.4. She was discharged home after blood transfusions, discontinuation of her anticoagulants and after consultations with Gastroenterology and Cardiology. At that time, the patient declined colonoscopy or any other procedures. She returns to the hospital with complaints of shortness of breath that began the night before at the alf. She was also found to have an elevated blood pressure. O2 sats were about 80% on 2 L nasal cannula. The patient denied any cough, any fever, no sputum production, and she was then brought into the emergency department for evaluation. At the time of evaluation in the emergency department, she is on BiPAP. Her vital signs are stable and the patient is beginning to feel better. PAST MEDICAL HISTORY: As mentioned before, it is quite extensive and significant for congestive heart failure, sick sinus syndrome, atrial fibrillation, recent admission for anemia, and hypercholesterolemia. PAST SURGICAL HISTORY: Significant for permanent pacemaker insertion and bilateral knee replacement. SOCIAL HISTORY: Noncontributory. FAMILY HISTORY: Noncontributory. ALLERGIES: PENICILLIN, SULFA, CLINDAMYCIN, CODEINE, DOXYCYCLINE, EGGS, AND IODINE. CURRENT MEDICATIONS: Include clonidine 0.1 mg every 8 hours as needed for hypertension, lisinopril 10 mg daily, she takes magnesium supplement, pantoprazole 40 mg daily, tramadol 50 mg 3 times a day as needed for pain, Carvedilol 3.125 mg twice a day, and vitamin D supplement. REVIEW OF SYSTEMS: Very limited due to the patient being on BiPAP. She states that she is having significant shortness of breath. Denies any chest pain. PHYSICAL EXAMINATION: GENERAL: She is awake, alert, and oriented x3. She is currently on BiPAP and in moderate distress due to dyspnea. VITAL SIGNS: Her blood pressure was 151/54, pulse rate is 60, and respirations 18. SKIN: Dry and warm. Turgor is fair. HEENT: Examination pupils are round, equal, and reactive to light. Oral mucosa is moist. She has a BiPAP in place. NECK: Supple. There is increased JVD. CHEST: Nontraumatic. LUNGS: Reveal decreased respiratory sounds in bilateral bases. Crackles. HEART: S1 and S2. Regular rhythm. ABDOMEN: Bowel sounds positive. Soft and nontender. EXTREMITIES: There is no edema. There is significant muscle wasting. NEUROLOGICAL: She is awake, alert, and oriented x3. No focal sensory or motor deficits. LABORATORY DATA: From admission show a white cell count of 11,900 and hemoglobin 11. Her chemistries indicate a sodium level of 135. Her B type natriuretic peptide level is 3760. Total protein is low of 5.9, albumin is low at 2.4. Urine show WBC 6 to 10, moderate bacteria, and her INR is 1.0. ADMITTING DIAGNOSES: 1. Exacerbation of congestive heart failure. 2. Pulmonary edema by chest x-ray. 3. Uncontrolled hypertension. 4. Chronic anemia. PLAN: Plan is to admit her to the hospital. Continue BiPAP. Request consultations with Pulmonary, Dr. Millan and her chemical instrumentation officer, Dr. Estrella. MD NICO Chambers/ANGEL /[id number]
[2018-10-19 23:18] LABS: CREATINE KINASE MB 2.6 ng/mL (0-5.0)
--- NOTE | 2018-10-19 23:35 | Consultation ---
DATE OF CONSULTATION: 10/19/2018 Cardiology Consultation REASON FOR CONSULTATION: Shortness of breath. HISTORY OF PRESENT ILLNESS: This is an 88-year-old woman, who has a history of chronic congestive heart failure, sick sinus syndrome status post pacemaker, history of deep venous thrombosis, history of episodic atrial flutter, and hypertension, who presented to the emergency department with progressively worsening shortness of breath and elevated high blood pressure. She states that she had recently stopped her lisinopril in the senior care. She reported to me that my colleague had taken her off her twice daily dosing of Lasix. However, on review of our clinic records, this is not in fact true. I suspect that she may have discontinued this herself. She presented with progressively worsening shortness of breath, occurred at rest, no exacerbating or relieving factors. It was noted to have elevated blood pressures greater than 200 and a chest x-ray showing congestive heart failure findings. She is currently feeling better and denies any ongoing symptoms of chest pain, palpitations, orthopnea, or syncope. REVIEW OF SYSTEMS: A 12-point system was conducted, and is negative except as stated above in the HPI. PAST MEDICAL HISTORY: As stated above. PAST SURGICAL HISTORY: Pacemaker. PAST FAMILY HISTORY: No premature coronary artery disease or sudden cardiac . SOCIAL HISTORY: No illicit drug, alcohol, or tobacco use. ALLERGIES: MULTIPLE, SEE MEDICATION CHART. MEDICATIONS: See medication reconciliation form. PHYSICAL EXAMINATION: VITAL SIGNS: She is afebrile, heart rate 72, respirations are 18, blood pressure is 153/57, and oxygen saturation 97% on 3 L nasal cannula. GENERAL: She is well-appearing elderly woman, lying comfortably in bed, in no apparent distress. Alert and oriented x3. HEAD: Normocephalic and atraumatic. Eyes, extraocular muscles are intact. Conjunctivae are clear. NECK: No JVD. No bruits. CARDIOVASCULAR: Regular rate and rhythm. LUNGS: Diminished breath sounds at bases. ABDOMEN: Soft, nontender, and nondistended. EXTREMITIES: No clubbing, cyanosis, or edema. VASCULAR: 2+ pulses. SKIN: Warm and dry, intact. NEUROLOGIC: No focal deficits noted. LABORATORY DATA: Reviewed. Creatinine 0.89. BNP is 3765. Normal troponins. Chest x-ray shows pulmonary vascular congestion. Electrocardiogram shows ventricular paced rhythm. ASSESSMENT: 1. [id number]-exyxdoe congestive heart failure. 2. Hypertensive urgency. 3. Former smoker. 4. Permanent pacemaker. RECOMMENDATIONS: Continue to titrate antihypertensive medications for better blood pressure response. Continue Lasix 40 mg IV q.12 hours. Continue to monitor daily creatinine and urinary outputs. We will continue to follow along with you. DO CYNTHIA Carlin/MODL /[id number]
[2018-10-20] VITALS (7 sets, daily range): BP systolic 157–196; BP diastolic 58–84
[2018-10-20] MEDS: ALBUTEROL/IPRATROPIUM 3 ML NEB NEB SCH ×6 (03:00→22:35)
[2018-10-20 05:45] LABS: BASOPHILS % 0.1 % (0.0-1.0); EOSINOPHILS # (AUTO) 0.1 (0.0-0.4); EOSINOPHILS % 1.7 % (0.0-6.0); HEMOGLOBIN 9.1 g/dL (12.0-16.0); LYMPHOCYTES # (AUTO) 1.4 (1.0-3.2); MEAN CORPUSCULAR HEMOGLOBIN 29.4 pg (28-32); MEAN CORPUSCULAR HGB CONC 31.4 g/dL (31-35); MEAN CORPUSCULAR VOLUME 93.5 fL (81-99); MONOCYTES # (AUTO) 0.7 (0.2-0.8); MONOCYTES % 8.5 % (4.4-11.3); NEUTROPHILS # (AUTO) 5.9 (2.1-6.9); NEUTROPHILS % 72.3 % (38.7-80.0); PLATELET COUNT 267 x10e3/uL (140-360); RED CELL DISTRIBUTION WIDTH 16.4 % (11.7-14.4)
[2018-10-20] MEDS: CLONIDINE HCL 0.1 MG TAB PO PRN ×2 (06:00→12:01)
[2018-10-20 06:11] LABS: ALBUMIN 2.2 g/dL (3.5-5.0); ALBUMIN/GLOBULIN RATIO 0.8 (0.8-2.0); ANION GAP 13.6 mmol/L (8-16); CALCIUM 7.7 mg/dL (8.4-10.2); CREATININE, SERUM 1.45 mg/dL (0.57-1.11); POTASSIUM 4.6 mmol/L (3.5-5.1)
[2018-10-20 07:30] LABS: BAND NEUTROPHILS % (MANUAL) 2 %; LYMPHOCYTES % (MANUAL) 14 % (19-48); MONOCYTES % (MANUAL) 7 % (3.4-9.0); NEUTROPHILS % (MANUAL) 77 % (40-74)
--- NOTE | 2018-10-20 07:30 | NUR ---
PT IN BED SLEEPING NO DISTRESS NOTED.NO S/S DISCOMFORT O2 2L NC IN PLACE.
[2018-10-20 07:31] LABS: ANISOCYTOSIS SLIGHT; PLATELET ESTIMATE ADEQUATE; PLATELET MORPHOLOGY COMMENT NORMAL; RBC MORPHOLOGY COMMENT NORMAL
[2018-10-20] MEDS: FUROSEMIDE INJ 10 MG/ML 4 ML VIAL IV SCH ×2 (08:19→17:05)
[2018-10-20] MEDS: MAGNESIUM OXIDE 400 MG TAB PO SCH ×2 (08:19→17:05)
[2018-10-20] MEDS: CARVEDILOL 3.125 MG TAB PO SCH ×2 (08:19→17:07)
[2018-10-20] MEDS: LISINOPRIL 10 MG TAB PO SCH ×2 (08:19→17:09)
[2018-10-20] MEDS: CHOLECALCIFEROL 1,000 UNIT TAB PO SCH (08:20)
[2018-10-20] MEDS: HEPARIN SOD (PORCINE) 5,000 UNIT/ML VIAL SC SCH ×2 (08:20→21:00)
[2018-10-20] MEDS ORDERED: NIFEDIPINE CR 30 MG TAB PO PRN (09:30)
[2018-10-20] MEDS: CEFTRIAXONE SOD 1 GM/NS 50 ML 50 ML IV SCH (09:30)
--- NOTE | 2018-10-20 10:32 | Diagnostic Imaging Report ---
EXAMINATION: CHEST SINGLE (PORTABLE) INDICATION: Shortness of breath COMPARISON: Chest A 02/26/2019 FINDINGS: LINES/TUBES:Left chest pacer with unchanged leads. LUNGS:The lungs are moderately inflated. There is perihilar fullness and indistinctness of the pulmonary vasculature. PLEURA:Likely small bilateral pleural effusions. No pneumothorax. MEDIASTINUM:Cardiomediastinal silhouette is stably enlarged. BONES/SOFT TISSUES:No acute osseous injury. ABDOMEN:No free air under the diaphragm. IMPRESSION: Unchanged pulmonary edema and small bilateral pleural effusions. Stable cardiomegaly. Signed by: Kenton Han MD on 10/20/2018 10:29 AM
[2018-10-20] MEDS: AMLODIPINE BESYLATE 10 MG TAB PO SCH (10:45)
--- NOTE | 2018-10-20 12:05 | Progress Note ---
DATE: 10/20/2018 Cardiology Progress Note SUBJECTIVE: The patient is feeling much better. Her respiratory status has improved. OBJECTIVE: VITAL SIGNS: Temperature is 97.1, heart rate 76, respirations 16, blood pressure is 196/83, and oxygen saturation on 3 liters nasal cannula. GENERAL: Elderly woman, in no apparent distress. CARDIOVASCULAR: Regular rate and rhythm. LUNGS: Diminished breath sounds with scattered rales. ABDOMEN: Soft, nontender, and nondistended. EXTREMITIES: No edema. CARDIOVASCULAR MEDICATIONS: Reviewed. LABORATORY DATA: Reviewed. Creatinine 1.45. TELEMETRY: Monitoring revealed ventricular paced rhythm. IMPRESSION: 1. Acute on chronic congestive heart failure. 2. Hypertensive urgency. 3. Former smoker. 4. History of permanent pacemaker implantation. 5. Acute on chronic kidney disease. RECOMMENDATIONS: Continue current cardiovascular medications. Started amlodipine for better blood pressure control. Avoid nephrotoxic agents as her creatinine has increased. Consider decreasing Lasix. Continue to monitor creatinine and urinary output. Oxygen status per Pulmonary Critical Care. Repeat echocardiogram. Osvaldo Forrest DO BM/MODL /[id number]
--- NOTE | 2018-10-20 14:31 | NUR ---
wound consultation today. Patient has blanchable redness to sacrum and redness to austin anal area. Heels are clear with some with sluggish cap refill. Skin tear to L arm from paramedics transferring according to patient. The area is clean dry and steri-stripped with dry dressing. Continue with Q 2 hr turns Continue heal protectors. Change L arm dressing prn and leave steri-strips. Continue alternating pressure mattress set to patients weight. Continue out of bed for meals apply venelex ointment to sacrum and perineum BID
[2018-10-20] MEDS: HYDRALAZINE HCL 25 MG TAB PO SCH ×2 (15:11→21:00)
--- NOTE | 2018-10-20 16:24 | NUR ---
Performed bedside PFT pre and post bronchodilator. Pt tolerated well at this time.
--- NOTE | 2018-10-20 16:35 | NUR ---
Nutrition Screen Note RD Recommendation for Physician: -Continue cardiac diet as ordered -The patient meets criteria for MODERATE protein-calorie malnutrition. Plan of Care: RD following, monitoring for tolerance and adequacy Nutrition reason for involvement: Diagnosis Primary Diagnose(s): Acute on chronic congestive heart failure. PMH: congestive heart failure, sick sinus syndrome, atrial fibrillation, anemia, and hypercholesterolemia, Crohns disease Ht: 63in Wt: 102lb BMI: 18.1kg/m2 IBW: 115lb +/- 10% RD Assessment: (10/20/18) Chart reviewed. Labs and meds reviewed. 88yo F, who was admitted for CHF. Visited pt in the room. Pt with good appetite and ate 100% of lunch today. Pt denied any nausea or vomiting. Pt has some missing teeth but refused texture modification. Pt denied any swallowing difficulty. Per daughter, pt has had some gradual weight loss within the last year. UBW ~108lbs. Pt with hx of Crohns disease. Discussed menu options with pt and family. Obtained diet preferences and food allergies. Family was encouraged to bring protein shake or foods from home as pt didnt like Ensure. Will continue to monitor and follow. Current Diet: cardiac diet Malnutrition Evaluation (10/20/2018) The patient meets criteria for MODERATE protein-calorie malnutrition. Energy intake: <75% of estimated energy requirements for >3 months Weight loss: 5% weight loss in 6 months, not meeting criteria Fat loss: Moderate clavicle protrusion, hollow look around orbital region Muscle loss: Moderate temporal depression Supporting Evidence: Fluid accumulation: unable to evaluate Functional Status: no changes Diet Education Needs Assessment: Diet education not indicated. Pt came from SNF. Pt was compliant with diet given at the facility. Pt was aware of diet restriction. No nutrition related question at this time. Nutrition Care Level: low Signed: Wanda Cordova, MS, RD, LD
[2018-10-20] MEDS: BALSAM PERU/CASTOR OIL 60 GM OINT...G. TP SCH (17:00)
--- NOTE | 2018-10-20 17:09 | NUR ---
PT UP IN BED ,REFUSD TO SIT IN CHAIR.DENIES PAIN.O2 2L NC IN PLACE
--- NOTE | 2018-10-20 19:00 | NUR ---
Pt visited in room during nursing rounds. Patient alert and oriented x3. Pt incontinent of bladder and bowel and wears a diaper. Heel protectors bilaterally and both feet elevated with pillow. On 3L humidified O2 via NC. Redness to sacrum and pt being turned Q2hrs. Sacrum on Xenaderm treatment as scheduled. Call winters within reach. Will monitor closely.
--- NOTE | 2018-10-20 19:38 | NUR ---
Removed bilateral heel protectors per pt request. Pt states they make her anxious. Both feet elevated with pillows.
[2018-10-20] MEDS: TRAMADOL HCL 50 MG TAB PO SCH (21:00)
[2018-10-20] MEDS: MELATONIN 3 MG TAB PO SCH (21:00)
--- NOTE | 2018-10-20 21:00 | NUR ---
Patient had bowel movement and anal area cleaned with wipes and diaper changed. Pt turns in bed pretty well.
[2018-10-20] MEDS: BUDESONIDE/FORMOTEROL 160/4.5MCG INHALER INH SCH (22:35)
[2018-10-21] VITALS (8 sets, daily range): BP systolic 136–195; BP diastolic 63–81
[2018-10-21] MEDS: ALBUTEROL/IPRATROPIUM 3 ML NEB NEB SCH ×6 (03:05→22:27)
--- NOTE | 2018-10-21 03:30 | NUR ---
Purewick used for patient since last urination poured out of diaper and wet the whole bed.
[2018-10-21 06:04] LABS: CALCIUM 7.8 mg/dL (8.4-10.2); CREATININE, SERUM 1.37 mg/dL (0.57-1.11)
--- NOTE | 2018-10-21 07:12 | NUR ---
PATIENT IN BED WITH HEAD OF BED ELEVATED RECEIVING NEB TREATMENT, NO DISTRESS NOTED.DRESSING INTACT TO LEFT ARM, REFUSED HEEL PROTECTORS TO BE REAPPLIED. BED IN LOWER POSITION, CALL LIGHT AT REACH. BED ALARM ACTIVATED.
[2018-10-21] MEDS: BUDESONIDE/FORMOTEROL 160/4.5MCG INHALER INH SCH ×2 (07:30→18:42)
[2018-10-21] MEDS: LISINOPRIL 10 MG TAB PO SCH (08:36)
[2018-10-21] MEDS: HYDRALAZINE HCL 25 MG TAB PO SCH ×3 (08:36→21:00)
[2018-10-21] MEDS: CARVEDILOL 3.125 MG TAB PO SCH ×2 (08:36→17:34)
[2018-10-21] MEDS: AMLODIPINE BESYLATE 10 MG TAB PO SCH (08:36)
[2018-10-21] MEDS: FUROSEMIDE INJ 10 MG/ML 4 ML VIAL IV SCH ×2 (09:16→17:34)
[2018-10-21] MEDS: CHOLECALCIFEROL 1,000 UNIT TAB PO SCH (09:16)
[2018-10-21] MEDS: PANTOPRAZOLE SOD 40 MG TABEC PO SCH (09:16)
[2018-10-21] MEDS: BALSAM PERU/CASTOR OIL 60 GM OINT...G. TP SCH ×2 (09:16→17:35)
[2018-10-21] MEDS: BUDESONIDE 3 MG CAPCR PO SCH (09:16)
[2018-10-21] MEDS: MAGNESIUM OXIDE 400 MG TAB PO SCH ×2 (09:16→17:34)
[2018-10-21] MEDS: HEPARIN SOD (PORCINE) 5,000 UNIT/ML VIAL SC SCH ×2 (09:27→21:00)
[2018-10-21] MEDS: CEFTRIAXONE SOD 1 GM/NS 50 ML 50 ML IV SCH (09:30)
--- NOTE | 2018-10-21 11:08 | NUR ---
EDUCATED ABOUT IMM, SIGNED, FILED IN CHART, WITH COPY LEFT WITH FAMILY AT BEDSIDE.
--- NOTE | 2018-10-21 11:10 | NUR ---
PATIENT ASSISTED OUT OF BED TO CHAIR FOR 30 MINUTES BY PHYSICAL THERAPY. BACK IN BED, BED IN LOWER POSITION, WITH CALL LIGHT AT REACH.
--- NOTE | 2018-10-21 11:29 | NUR ---
SPOKE WITH PT WHOM IS FROM [facility] AND PLAN IS TO RETURN
--- NOTE | 2018-10-21 14:32 | Progress Note ---
DATE: 10/21/2018 Cardiology Progress Note SUBJECTIVE: The patient is feeling better. Denies any chest pain. Shortness of breath has improved. OBJECTIVE: VITAL SIGNS: Temperature is 96.4, heart rate is 61, respirations 17, and blood pressure this morning was 195/81, currently 136/63, and oxygen saturation is 98% on 3 L nasal cannula. GENERAL: She is well-appearing elderly woman, lying comfortably in bed. CARDIOVASCULAR: Regular rate and rhythm. LUNGS: Clear to auscultation. ABDOMEN: Soft, nontender, and nondistended. EXTREMITIES: No edema. MEDICATIONS: Cardiovascular medicationsreviewed. LABORATORY DATA: Reviewed. Hemoglobin 9.1. Creatinine has improved to 1.37. Potassium 4. TELEMETRY: Monitoring revealed ventricular paced rhythm. IMPRESSION: 1. Kltbg-tk-kjxmydf congestive heart failure. 2. Hypertensive urgency. 3. Former smoker. 4. History of permanent pacemaker implantation. 5. Lizry-dk-hwpxfzp kidney disease. RECOMMENDATIONS: Continue current cardiovascular medications. Her antihypertensive medications have been increased and re-initiated. Monitor her creatinine closely given lisinopril has been re-initiated and Lasix is being dosed. Wean oxygen per Pulmonary. Continue to follow along with you. Osvaldo Forrest DO BM/MODL /[id number]
--- NOTE | 2018-10-21 16:27 | Pulmonary Function Test ---
DATE OF STUDY: 10/21/2018 REFERRING PHYSICIAN: NAME OF STUDY: Spirometry Report. Patient of Dr. Wright and Dr. Conti. FINDINGS: Restrictive spirometry. Forced vital capacity 1.28 L, 58% of predicted. FEV1 0.94 L, 54%. FEV1/FVC ratio 100%. [id number] of 65%. There is no significant improvement following inhalation of bronchodilators. MD SATNAM Vázquez/MODL /[id number]
--- NOTE | 2018-10-21 16:58 | NUR ---
ASSISTED WITH DINNER TRAY, NO DIFFICULTY SWALLOWING OBSERVED. BED IN WITH CALL LIGHT AT REACH, INSTRUCTED TO CALL FOR ASSISTANCE NEEDED.
[2018-10-21] MEDS: LISINOPRIL 20 MG TAB PO SCH (17:34)
--- NOTE | 2018-10-21 19:00 | NUR ---
patient received awake, alert, lying quietly in bed. no c/o pain noted. respirations even and unlabored. 02/2l/nc in use. pm assessment complete. patient instructed to call for assistance when needed.
[2018-10-21] MEDS: TRAMADOL HCL 50 MG TAB PO SCH (21:00)
[2018-10-21] MEDS: MELATONIN 3 MG TAB PO SCH (21:00)
[2018-10-22] VITALS (8 sets, daily range): BP systolic 148–187; BP diastolic 63–77
[2018-10-22] MEDS: CLONIDINE HCL 0.1 MG TAB PO PRN (01:10)
--- NOTE | 2018-10-22 01:10 | NUR ---
Patient medicated with clonidine 0.1mg po for bp 179/77 at this time.
[2018-10-22] MEDS: ALBUTEROL/IPRATROPIUM 3 ML NEB NEB SCH ×6 (02:08→23:00)
--- NOTE | 2018-10-22 03:27 | NUR ---
bp 187/72 hr 70 patient medicated with ultram 25mg po for c/o right knee pain 08/17 at this time per patients request.
[2018-10-22 05:21] LABS: BASOPHILS % 0.3 % (0.0-1.0); EOSINOPHILS # (AUTO) 0.1 (0.0-0.4); EOSINOPHILS % 1.4 % (0.0-6.0); HEMATOCRIT 26.9 % (34.2-44.1); HEMOGLOBIN 8.8 g/dL (12.0-16.0); LYMPHOCYTES # (AUTO) 1.9 (1.0-3.2); LYMPHOCYTES % 28.8 % (18.0-39.1); MEAN CORPUSCULAR HEMOGLOBIN 30.1 pg (28-32); MEAN CORPUSCULAR HGB CONC 32.7 g/dL (31-35); MEAN CORPUSCULAR VOLUME 92.1 fL (81-99); MONOCYTES # (AUTO) 0.7 (0.2-0.8); MONOCYTES % 10.4 % (4.4-11.3); NEUTROPHILS # (AUTO) 3.8 (2.1-6.9); NEUTROPHILS % 58.6 % (38.7-80.0); PLATELET COUNT 251 x10e3/uL (140-360); RED BLOOD COUNT 2.92 x10e6/uL (3.6-5.1); RED CELL DISTRIBUTION WIDTH 16.4 % (11.7-14.4)
[2018-10-22 05:39] LABS: ANION GAP 12.6 mmol/L (8-16); BLOOD UREA NITROGEN 42 mg/dL (7-26); BUN/CREATININE RATIO 52 (6-25); CARBON DIOXIDE 27 mmol/L (22-29); CHLORIDE 99 mmol/L (98-107); CREATININE, SERUM 0.81 mg/dL (0.57-1.11); EST GLOMERULAR FILTRATION RATE > 60 ML/MIN (60-); GLUCOSE 105 mg/dL (74-118); POTASSIUM 3.6 mmol/L (3.5-5.1); SODIUM 135 mmol/L (136-145)
--- NOTE | 2018-10-22 07:10 | NUR ---
PATIENT IN BED RESTING WITH EYES CLOSED, NO DISTRESS NOTED. DRESSING INTACT TO LEFT ARM, REDNESS AND SWELLING TO LEFT KNEE. BED IN LOWER POSITION, CALL LIGHT AT REACH.
[2018-10-22] MEDS: BUDESONIDE/FORMOTEROL 160/4.5MCG INHALER INH SCH ×2 (07:25→19:00)
[2018-10-22] MEDS: HEPARIN SOD (PORCINE) 5,000 UNIT/ML VIAL SC SCH ×2 (09:00→22:18)
[2018-10-22] MEDS: CARVEDILOL 3.125 MG TAB PO SCH ×2 (09:23→17:40)
[2018-10-22] MEDS: MAGNESIUM OXIDE 400 MG TAB PO SCH ×2 (09:23→17:40)
[2018-10-22] MEDS: HYDRALAZINE HCL 25 MG TAB PO SCH ×3 (09:23→21:00)
[2018-10-22] MEDS: FUROSEMIDE INJ 10 MG/ML 4 ML VIAL IV SCH (09:23)
[2018-10-22] MEDS: BUDESONIDE 3 MG CAPCR PO SCH (09:23)
[2018-10-22] MEDS: BALSAM PERU/CASTOR OIL 60 GM OINT...G. TP SCH ×2 (09:24→17:40)
[2018-10-22] MEDS: LISINOPRIL 20 MG TAB PO SCH ×2 (09:24→17:40)
[2018-10-22] MEDS: CHOLECALCIFEROL 1,000 UNIT TAB PO SCH (09:24)
[2018-10-22] MEDS: AMLODIPINE BESYLATE 10 MG TAB PO SCH (09:24)
[2018-10-22] MEDS: PANTOPRAZOLE SOD 40 MG TABEC PO SCH (09:24)
[2018-10-22] MEDS: CEFTRIAXONE SOD 1 GM/NS 50 ML 50 ML IV SCH (09:30)
--- NOTE | 2018-10-22 11:20 | NUR ---
PATIENT TRANSFERRED FROM BED TO CHAIR WITH PHYSICAL THERAPY. IN CHAIR TALKING TO FAMILY MEMBER VISITING. CALL LIGHT AT REACH.
--- NOTE | 2018-10-22 15:44 | NUR ---
PATIENT ASSISTED WITH DIAPER CHANGE, VOIDED LARGE AMOUNT OF YELLOW URINE. REPOSITIONED IN BED. BED IN LOWER POSITION, CALL LIGHT AT REACH.
--- NOTE | 2018-10-22 20:10 | NUR ---
Patient stated that she can not stand right now and refused orthostatic v/s." i am going to rehab tomorrow".
[2018-10-22] MEDS: MELATONIN 3 MG TAB PO SCH (22:03)
[2018-10-22] MEDS: TRAMADOL HCL 50 MG TAB PO SCH (22:03)
--- NOTE | 2018-10-22 23:06 | NUR ---
Repositioned .aaox3.room air.diaper changed and pure wick is in place.bed locked and in lowest position.phone and call light within reach.instructed to call for assistance as needed.verbalized understanding.
[2018-10-23] VITALS (8 sets, daily range): BP systolic 97–190; BP diastolic 53–94
[2018-10-23] MEDS: CLONIDINE HCL 0.1 MG TAB PO PRN (00:06)
--- NOTE | 2018-10-23 00:08 | NUR ---
BP NOTED 176/76.CLONIDINE 0.1MG PO GIVEN.
[2018-10-23] MEDS: ALBUTEROL/IPRATROPIUM 3 ML NEB NEB SCH ×4 (03:00→15:15)
[2018-10-23] MEDS ORDERED: FUROSEMIDE INJ 10 MG/ML 4 ML VIAL IV SCH (06:00)
[2018-10-23 06:01] LABS: ANION GAP 11.5 mmol/L (8-16); BLOOD UREA NITROGEN 36 mg/dL (7-26); BUN/CREATININE RATIO 42 (6-25); CALCIUM 8.3 mg/dL (8.4-10.2); CARBON DIOXIDE 33 mmol/L (22-29); CHLORIDE 98 mmol/L (98-107); CREATININE, SERUM 0.86 mg/dL (0.57-1.11); EST GLOMERULAR FILTRATION RATE > 60 ML/MIN (60-); GLUCOSE 86 mg/dL (74-118); POTASSIUM 4.5 mmol/L (3.5-5.1); SODIUM 138 mmol/L (136-145)
--- NOTE | 2018-10-23 06:06 | NUR ---
Bp checked and noted 162/71.iv is leaking.patient refused to take off the iv cannula and to start new iv.pt stated that "i am leaving the hospital today .no need to start new iv now".
--- NOTE | 2018-10-23 06:41 | NUR ---
Iv cannula is not patent .notified to and charge nurse.
--- NOTE | 2018-10-23 07:08 | NUR ---
BED SIDE SHIFT REPORT GIVEN TO THE ONCOMING RN CARMELA.STABLE CONDITION.
[2018-10-23] MEDS: BUDESONIDE/FORMOTEROL 160/4.5MCG INHALER INH SCH (07:25)
--- NOTE | 2018-10-23 08:16 | NUR ---
patient up in bed, Alert with no distress, denies any SOB or chest pain, Dr Wright had rounds and he aware about patient refused to have new IV access
[2018-10-23] MEDS: HEPARIN SOD (PORCINE) 5,000 UNIT/ML VIAL SC SCH (08:42)
[2018-10-23] MEDS: HYDRALAZINE HCL 25 MG TAB PO SCH (09:01)
[2018-10-23] MEDS: PANTOPRAZOLE SOD 40 MG TABEC PO SCH (09:01)
[2018-10-23] MEDS: CARVEDILOL 3.125 MG TAB PO SCH (09:01)
[2018-10-23] MEDS: LISINOPRIL 20 MG TAB PO SCH (09:01)
[2018-10-23] MEDS: BUDESONIDE 3 MG CAPCR PO SCH (09:01)
[2018-10-23] MEDS: AMLODIPINE BESYLATE 10 MG TAB PO SCH (09:01)
[2018-10-23] MEDS: MAGNESIUM OXIDE 400 MG TAB PO SCH (09:01)
[2018-10-23] MEDS: BALSAM PERU/CASTOR OIL 60 GM OINT...G. TP SCH (09:02)
[2018-10-23] MEDS: CHOLECALCIFEROL 1,000 UNIT TAB PO SCH (09:02)
[2018-10-23] MEDS ORDERED: HYDRALAZINE HCL25 MG PO (09:29)
[2018-10-23] MEDS ORDERED: FUROSEMIDE40 MG PO (09:29)
[2018-10-23] MEDS ORDERED: NORVASC10 MG PO (09:29)
[2018-10-23] MEDS ORDERED: LISINOPRIL20 MG PO (09:29)
[2018-10-23] MEDS: CEFTRIAXONE SOD 1 GM/NS 50 ML 50 ML IV SCH (09:30)
[2018-10-23] MEDS ORDERED: SYMBICORT 16010.2 GM INH (09:31)
[2018-10-23] MEDS ORDERED: MIRALAX17 GM PO (09:46)
[2018-10-23] MEDS ORDERED: FUROSEMIDE 40 MG TAB PO ONE (10:00)
--- NOTE | 2018-10-23 12:37 | NUR ---
INITIATED RETURN TO [facility], RTF COMPLETED AND GIVEN TO NURSE, WAITING ON INSURANCE AUTH FROM FACILITY TO GIVE PERMISSION TO
--- NOTE | 2018-10-23 12:37 | NUR ---
EDUCATED ABOUT IMM, SIGNED, FILED IN CHART, WITH COPY LEFT WITH FAMILY AT BEDSIDE.
--- NOTE | 2018-10-23 16:54 | NUR ---
patient discharged to [facility], Alert with no distress, denies any chestpain or SOB, IV canula removed with tip intact, no ss of infiltration, Tele box returned, report called to Dariana RN, EMS here to pick the patient
[2018-10-23] MEDS ORDERED: TERAZOSIN HCL 1 MG CAP PO SCH (21:00)
--- NOTE | 2018-10-24 05:32 | Discharge Summary ---
DISCHARGE DIAGNOSES: 1. Congestive heart failure, now compensated. 2. Isolated systolic hypertension. 3. Chronic anemia. 4. Pulmonary edema, now resolved. 5. Chronic obstructive pulmonary disease, stable. CHIEF COMPLAINT: Ms. Roman is a pleasant 88-year-old lady, patient of Dr. Alexander Rodrigez, known to me from prior hospital admissions. Her past medical history is significant for congestive heart failure. There is a prior episode of respiratory failure at the beginning of this year. She has sick sinus syndrome. She had a recent admission to this hospital on October 05 because of acute anemia. She is now returning to the hospital with complaints of shortness of breath that began the night before at the shelter. She was having an elevated blood pressure. On arrival, O2 sats were about 80% on 2 L nasal cannula. She had no fever, no sputum production, and after admission she was treated with BiPAP and IV diuretics. Consultations were requested with her director of professional services, Dr. Estrella and Pulmonary, Dr. Millan. Her blood pressure was not well controlled and it was found that several of the patient's antihypertensive medicines have been discontinued. She was restarted on her usual doses of lisinopril, furosemide, and carvedilol. Amlodipine was added as well as hydralazine. The patient's blood pressure has been better controlled and she has slowly returned to her baseline. She has no dyspnea on the supine position. Followup chest x-ray showed improvement of pulmonary congestion. Her GFR has been stable as well as the potassium levels. The patient is being discharged back to [facility] and a note has been sent to request that no changes be made to her antihypertensive medicines without discussing this first with the patient's director of professional services. MD NICO Chambers/ANGEL /[id number]
== END 2018-10-23 17:00 | DRG 291 ==
LOC: ER 04:36 → ERHOLD 06:11 → MED/SURG3 14:35
PROVIDERS: ADMIT Internal Medicine; ATTEND Internal Medicine
DX: I13.0 Hypertensive heart and chronic kidney disease with heart failure and stage 1 through stage 4 chronic kidney disease, or unspecified chronic kidney disease (principal); I50.23 Acute on chronic systolic (congestive) heart failure; J80 Acute respiratory distress syndrome; N17.9 Acute kidney failure, unspecified; I16.0 Hypertensive urgency; I11.0 Hypertensive heart disease with heart failure; J44.9 Chronic obstructive pulmonary disease, unspecified; D64.9 Anemia, unspecified; N18.9 Chronic kidney disease, unspecified; Z86.718 Personal history of other venous thrombosis and embolism; Z79.01 Long term (current) use of anticoagulants; Z95.0 Presence of cardiac pacemaker; Z87.891 Personal history of nicotine dependence
CPT/HCPCS: 36415; 36600; 71045; 80048; 80053; 81001; 82550; 82553; 82805; 83540; 83880; 84466; 84484; 85025; 85610; 85730; 87086; 93005; 93306; 94060; 94640; 94644; 94660; 94664; 96374; 97139; 99285; J0360; J0696; J1644; J1940; J2270; J2405; J2930